=== PATIENT | male | born 1960 | race Caucasian/White ===

== ENCOUNTER 2016-12-23 08:17 | Inpatient (IN) | payer MEDICARE ==
--- NOTE | 2016-12-20 14:12 | HP ---
HISTORY AND PHYSICAL: DATE OF OFFICE VISIT: 12/20/16 DATE OF SURGERY: 12/23/16 SURGEON: Dr. Marissa Montague. (DICTATED BY JEYSON DOSS) PROCEDURE: Right total knee arthroplasty. CHIEF COMPLAINT: Right knee pain. HISTORY OF PRESENT ILLNESS: Mr. Fajardo is a 56-year-old with complaints of right knee pain secondary to advanced osteoarthritis. He has failed conservative management and has elected to proceed with a right total knee arthroplasty, which is scheduled for 12/23/16. PAST MEDICAL HISTORY: 1. Hypertension. 2. COPD. 3. History of an IN x2. 4. High cholesterol. 5. Sleep apnea. 6. Coronary artery disease. 7. Obesity. 8. Osteoarthritis. 9. History of DVT x3. 10. Diabetes. 11. History of kidney cancer. PAST SURGICAL HISTORY: 1. Bilateral knee arthroscopies. 2. Left partial nephrectomy. 3. Cholecystectomy. 4. T and A. 5. Bilateral trigger finger release. 6. Appendectomy. 7. Hysterectomy. 8. Chest reconstruction. 9. Left shoulder rotator cuff repair. 10. Lumbar laminectomy. CURRENT MEDICATIONS: 1. Bystolic. 2. Advair Diskus. 3. Testosterone. 4. Spiriva. 5. Buspirone. 6. Duloxetine. 7. Famotidine. 8. ProAir. 9. Vitamin D3. 10. Bumetanide. 11. Sertraline. 12. Tizanidine. 13. Topamax. 14. Oxycodone. 15. Atorvastatin. ALLERGIES: To ASPIRIN, CODEINE causing abdominal pain, AMOXICILLIN, ARTHROTEC, ZITHROMAX, TAPE ADHESIVE, LYRICA, GABAPENTIN, MYOVIEW, and CELEBREX. FAMILY HISTORY: Unknown, adopted. SOCIAL HISTORY: This is a 56-year-old transgender male who lives alone. He is a former smoker, quit 3 years ago. He denies the use of drugs or alcohol. REVIEW OF SYSTEMS: A complete 14-point review of systems was reviewed with the patient and was negative for a history of anesthesia problems, negative for hepatitis C, HIV, or MRSA, positive for diabetes, history of a DVT. PHYSICAL EXAMINATION GENERAL: He is a 56-year-old obese male in no acute distress. VITAL SIGNS: He stands 5 feet 3 inches tall, weighs 250 pounds, his blood pressure is 115/68, his heart rate is 78. HEENT: Normocephalic, atraumatic. NECK: Supple. No palpable lymph nodes. CARDIO: Regular rate and rhythm. Strong S1, S2. No murmurs, gallops or rubs. PULMONARY: Lungs are clear to auscultation bilaterally. No wheezes, rhonchi or rales. ABDOMEN: Soft, nontender, nondistended. MUSCULOSKELETAL: Right lower extremity, the skin is intact. There is a full range of motion of the right knee, tenderness over the medial and lateral joint line, patellofemoral crepitus, mild joint effusion, 2+ dorsalis pedis pulses. His lower extremity muscular strengths are intact at 5/5. NEUROLOGICAL: Alert and oriented x3. Cranial nerves II through XII are intact. ASSESSMENT AND PLAN: Mr. Fajardo is a 56-year-old gentleman with complaints of right knee pain secondary to advanced osteoarthritis. He has failed conservative management and has elected to proceed with a right total knee arthroplasty, which is scheduled for 12/23/[address] Montague discussed the risks and the benefits of the surgery and all of his questions were answered. Coumadin was sent to his pharmacy today for postoperative DVT prophylaxis. He currently has a prescription for oxycodone 2 mg and recently filled that prescription and no pain medication was sent today. He will continue to use the oxycodone 2 mg following the surgery. Prescription for Colace was sent for postoperative constipation. He will see Dr. Montague about 10 to 14 days after the surgery. JEYSON DOSS [id number]/[facility] #: [id number] MTDAnnmarie
[~2016-12-23 08:17] MED LIST: Buffered Lidocaine 1% SYR 3ML* 3 ML/SYR SYRINGE INTRADERM ONE
[2016-12-23] MEDS ORDERED: Clindamycin 900 MG IVPREMIX(* 900 MG/50 ML SDV IV ONE (08:35)
[2016-12-23] MEDS ORDERED: Midazolam* 1 MG/ML 5 ML VIAL (5 MG) ONE ×2 (10:22→11:31)
[2016-12-23] MEDS ORDERED: fentaNYL* 50 MCG/ML 2 ML VIAL (100 MCG VIAL) ONE ×2 (10:49→15:41)
[2016-12-23] MEDS ORDERED: HYDROmorphone* 1 MG/ML 1 ML SYR IV PRN (11:55)
[2016-12-23] MEDS ORDERED: fentaNYL* 50 MCG/ML 2 ML VIAL (100 MCG VIAL) IV PRN (11:55)
[2016-12-23] MEDS ORDERED: diPHENhydraMINE IV* 50 MG/ML 1 ml VIAL (BENADRYL) IV PRN ×2 (11:55→13:06)
[2016-12-23] MEDS ORDERED: Ondansetron INJ* 2 MG/ML VIAL IV PRN ×2 (11:55→11:57)
[2016-12-23] MEDS ORDERED: Naloxone* 0.4 MG/ML 1 ML VIAL IV PRN (11:57)
[2016-12-23] MEDS ORDERED: EPHEDrine (Pressors)* 50 MG/ML VIAL IV PUSH PRN (11:57)
[2016-12-23] MEDS ORDERED: DiMENhydriNATE IV* 50 MG/ML VIAL IV PUSH PRN (11:57)
[2016-12-23] MEDS ORDERED: Lactated Ringers 500 ml BAG* 500 ML IV PRN (11:57)
[2016-12-23] MEDS ORDERED: Ropivacaine 0.2% EPIDURAL* 200 MG/100 ML BAG EPIDURAL ONE (12:42)
[2016-12-23] MEDS ORDERED: Polyethylene Glycol 3350* 17 GM PACKET PO PRN (13:06)
[2016-12-23] MEDS ORDERED: Bisacodyl SUPP* 10 MG SUPP PR PRN (13:06)
[2016-12-23] MEDS ORDERED: Acetaminophen TAB* 325 MG PO PRN (13:06)
[2016-12-23] MEDS ORDERED: Nitroglycerin TAB 0.4 MG* 0.4 MG TAB SL PRN (13:14)
[2016-12-23] MEDS ORDERED: ALBUTEROL SULFATE INH PRN (13:14)
[2016-12-23] MEDS ORDERED: TESTOSTERONE CYPIONATE 200 MG IM SCH (13:15)
--- NOTE | 2016-12-23 14:26 | RAD ---
INDICATION: Status post total right knee replacement surgery. COMPARISON: Comparison is made with a prior x-ray study of the right knee from December 20, 2016. TECHNIQUE: 2 views of the right knee were obtained. FINDINGS: The patient is status post total right knee replacement surgery. The bones and prostheses are in normal alignment. There is a surgical drain present anterior to the distal femur. IMPRESSION: STATUS POST TOTAL RIGHT KNEE REPLACEMENT SURGERY.
[2016-12-23] MEDS: Ropivacaine 0.2% EPIDURAL* 200 MG/100 ML BAG EPIDURAL SCH ×2 (15:34→23:20)
[2016-12-23] MEDS ORDERED: oxyCODONE/Acetamin 5/325 MG* TAB ONE (15:41)
[2016-12-23] MEDS: oxyCODONE/Acetamin 5/325 MG* TAB PO PRN ×2 (15:42→20:03)
[2016-12-23] MEDS ORDERED: Spiriva Inhaler DEVICE* 1 EACH DEVICE INH ONE (17:00)
[2016-12-23] MEDS ORDERED: Warfarin TAB(*) 10 MG PO ONE (17:00)
[2016-12-23] MEDS ORDERED: Dextrose 50% Syringe 50 ML* 25 GM/50 ML SYRINGE IV PUSH PRN (17:01)
[2016-12-23] MEDS: Clindamycin 600 MG IVPREMIX(* 600 MG/50 ML SDV IV SCH (18:19)
--- NOTE | 2016-12-23 18:39 | CONS ---
MEDICAL CONSULTATION: DATE OF CONSULTATION: 12/23/16 PRIMARY CARE PROVIDER: Aaron William MD. PRIMARY SOCIAL MEDIA SPECIALIST: Jovanni Zavaleta MD. REFERRING PHYSICIAN: Marissa Montague MD. CONSULTING PROVIDER: JEYSON Melgar. SUPERVISING PHYSICIAN: Vidhi Michaud DO CHIEF COMPLAINT: Status post right total knee replacement. HISTORY OF PRESENT ILLNESS: This is a 56-year-old gentleman with a rather extensive medical history which includes obstructive sleep apnea for which he uses BiPAP, hypertension, morbid obesity, hyperlipidemia, coronary artery disease with an acute NM at less than 39 years old, 2 prior DVTs, COPD, diet- controlled diabetes, history of renal cancer, status post nephrectomy. This gentleman is a transgender individual who identifies as male, status post mastectomy and hysterectomy. The patient underwent right total knee replacement by Dr. Montague earlier today. Dr. Montague has requested medical consultation for comanagement of his multiple medical conditions during the postoperative period. Despite spinal anesthesia, the patient is still quite drowsy when evaluated in the PACU and is unable to provide a significant amount of history, but I was able to review preoperative evaluation from both his primary care provider, Dr. William, as well as Dr. Zavaleta. The patient last underwent a stress test less than a year ago, did have a small area of reversible ischemia appreciated at that time. No intervention. Baseline exercise tolerance is excellent. The patient is able to walk approximately a mile and a half without cardiac symptoms. Dr. Zavaleta recommended continuing his Bystolic through the perioperative period, but otherwise had no reservations regarding preoperative risk reduction. Notes from Dr. William suggested that his chronic medical conditions are stable. The patient has not had any recent COPD exacerbations or other recent illness. PAST MEDICAL HISTORY: 1. Obstructive sleep apnea, compliant with home BiPAP therapy. 2. Hypertension. 3. Morbid obesity with a BMI of 46. 4. Hyperlipidemia. 5. Coronary artery disease. History of acute NM in 1994. 6. DVT x2 in 1982 and 2008. The circumstances surrounding these events are unknown. 7. COPD. 8. Diet-controlled diabetes. 9. Transgender female transitioning to male. 10. Renal cell carcinoma, status post nephrectomy. PAST SURGICAL HISTORY: 1. Tonsillectomy. 2. Hysterectomy. 3. Chest reconstruction with double mastectomy. 4. Appendectomy. 5. Cholecystectomy. 6. Left rotator cuff repair. 7. Left knee arthroscopy. 8. Nephrectomy. HOME MEDICATIONS: 1. Sertraline 100 mg p.o. daily. 2. Albuterol 2 puffs inhaled q. 4 hours as needed for shortness of breath. 3. Bumex 1 mg p.o. daily. 4. Vitamin D3 2000 units p.o. twice daily. 5. Cymbalta 30 mg p.o. daily. 6. Pepcid 20 mg p.o. twice daily. 7. Advair 1 puff inhaled twice daily. 8. Multivitamin 1 capsule p.o. daily. 9. Bystolic 2.5 mg p.o. daily. 10. Nitroglycerin 0.4 mg sublingual q. 5 minutes as needed for chest pain. 11. Oxycodone 10 mg p.o. q. 6 hours as needed for pain. 12. Crestor 20 mg p.o. daily. 13. Testosterone intramuscularly every 14 days. 14. Spiriva 1 capsule inhaled daily. 15. Tizanidine 2 mg p.o. daily as needed. 16. Topiramate 25 mg p.o. at bedtime. 17. Trazodone 100 mg p.o. daily as needed for insomnia. 18. BuSpar 10 mg p.o. twice daily. SOCIAL HISTORY: The patient does have a smoking history, unsure of the number of pack years, but has quit greater than 2 years ago, and has no regular alcohol consumption. REVIEW OF SYSTEMS: Unable to obtain from the patient at this time. LABORATORY EVALUATION: Preoperative labs were not available for review. IMAGING: EKG shows a normal sinus rhythm, completed preoperatively. PHYSICAL EXAMINATION: Most recent vitals, temperature 97 degrees Fahrenheit, pulse 83 beats per minute, respiratory rate 18 per minute, oxygen saturation 93 % on 4 L with BiPAP mask in place, blood pressure 119/68 mmHg. General: This is a middle-aged gentleman that appears to be resting comfortably postoperatively. He is quite drowsy, he will respond to light touch and his name, but is unable to sustain a conversation and quickly falls back to sleep. HEENT: Head is normocephalic. There is a nasal mask in place. Mucous membranes are otherwise pink and moist. Cardiovascular: Heart has a regular rate and rhythm without murmurs, rubs, or gallops. Respiratory: Lungs are clear to auscultation without wheezes, crackles, or rhonchi. Abdomen: Abdomen is soft and nontender to palpation. Extremities: There is trace edema appreciated in both lower extremities. Surgical dressing in place over the right knee. Skin: Limited exam shows no concerning rashes or lesion. ASSESSMENT AND PLAN: This is a 56-year-old gentleman with a significant medical history including obstructive sleep apnea, hypertension, morbid obesity , hyperlipidemia, ischemic heart disease. status post NM in 1994, 2 prior DVTs, COPD, diet-controlled diabetes, renal cell carcinoma, status post nephrectomy, who underwent elective right total knee replacement with Dr. Montague earlier today. Hospitalist group has been asked to consult for medical comanagement. 1. Status post right total knee replacement - this is postop day 0, management per Ortho team including pain control, discharge planning and DVT prophylaxis. 2. Postoperative sedation - the patient received spinal anesthesia and per PACU nurse, has not required anything in the recovery period for pain, yet he remains quite sedated. He has multiple risk factors that would increase the likelihood of him having CO2 narcosis including obesity, COPD, and obstructive sleep apnea. His BiPAP is currently in place. I plan to check an ABG at this time to help to evaluate need for further management. Respiratory rate is within normal limits and the patient appears to be oxygenating well. 3. Obstructive sleep apnea, compliant with BiPAP - the patient has brought his own BiPAP with him and this will be ordered for use during his hospital stay. 4. Hypertension - it appears the patient uses Bumex and Bystolic. Bumex can likely be resumed tomorrow morning. Bystolic has been continued at this time. 5. Hyperlipidemia - continue statin. 6. History of coronary artery disease, status post NM in 1994 - per preoperative records, the patient has recently been asymptomatic and recommend continuing beta- ravindra perioperatively. 7. History of deep venous thrombosis x2 - per records, the patient experienced deep venous thrombosis in 1982 and 2008, unable to investigate what the circumstances were surrounding these. DVT prophylaxis will certainly be important in this patient. It appears that he has been ordered for Lovenox starting tomorrow afternoon, which will be 24 hours postoperatively as well as initiating Coumadin, with plan to bridge to full Coumadin therapy. 8. Chronic obstructive pulmonary disease without evidence of recent exacerbation - we will continue Advair, Spiriva and p.r.n. albuterol. 9. Diet-controlled diabetes - no preoperative labs are available for review. We will check fingersticks at meal time at least for the first 24 hours of his hospital stay. Check his hemoglobin A1c. 10. History of renal cell carcinoma, status post nephrectomy. 11. Transgender individual who identifies as male, with history of hysterectomy and mastectomy. 12. Code status. The patient is a full code. 13. Healthcare proxy is unknown. 14. DVT prophylaxis per Orthopedic Surgery, with Lovenox bridging to Coumadin currently ordered. 15. Disposition: Hospitalist group will continue to follow along with this patient. ABG is currently pending at this time. JEYSON MELGAR CC: Jovanni Zavaleta MD; Marissa Montague MD * [id number]/[facility] #: [id number] MTDD
[2016-12-23] MEDS: Famotidine TAB* 20 MG PO SCH (20:07)
[2016-12-23] MEDS: busPIRone TAB* 5 MG PO SCH (20:07)
[2016-12-23] MEDS: Docusate CAP* 100 MG PO SCH (20:07)
[2016-12-23] MEDS: Topiramate TAB(*) 25 MG PO SCH (20:07)
[2016-12-23] MEDS: Mometasone/Formoter 200/5 MDI INH SCH (20:48)
[2016-12-23] MEDS: Magnesium Hydroxide LIQ* 30 ML UDC PO SCH (21:20)
[2016-12-23] MEDS: Morphine INJ* 10 MG/ML 1 ML SYRINGE IV PRN (22:29)
[2016-12-23] MEDS: oxyCODONE TAB* 5 MG TAB PO PRN (23:48)
--- NOTE | 2016-12-24 00:39 | OP ---
DATE OF OPERATION: 12/23/16 - ROOM #349 DATE OF : 58 SURGEON: Marissa Montague MD TRAFFIC CONTROL OPERATOR: JEYSON Cowan. Manager [employer] was used throughout the procedure for preparation of the leg, retraction and manipulation of the leg, and wound closure. ANESTHESIOLOGIST: Dr. Tucker. ANESTHESIA: Spinal with adductor nerve block. PRE-OP DIAGNOSIS: Severe end-stage degenerative osteoarthritis of the right knee joint. POST-OP DIAGNOSIS: Severe end-stage degenerative osteoarthritis of the right knee joint. OPERATIVE PROCEDURE: Right total knee arthroplasty. TOURNIQUET TIME: 52 minutes. COMPLICATIONS: None. SPECIMEN: Bone and cartilage from the right knee joint sent to pathology. ESTIMATED BLOOD LOSS: 200 cc. HARDWARE USED: This is cemented [employer]am [employer] Nephew total knee hardware. For the cement, two packages of Simplex bone cement. For the femur, a size 5 right narrow posterior stabilized Legion Oxinium component. For the tibia, a size 3 right tibial base plate. For the insert, an 11 mm posterior stabilized articular insert a size 3-4, and for the patella, 32 mm 3-peg all-poly patella. BRIEF HISTORY/INDICATION: Mr. Fajardo is a 56-year-old gentleman with years of increasingly severe right knee pain. He failed conservative treatment with the anti-inflammatories, pain medication, physical therapy, arthroscopy, intra- articular injections and brace wear. Radiographs showed severe end-stage arthritis of the right knee joint with [id number] contacts in the medial compartment. He elected to undergo right total knee arthroplasty due to continued pain and decreased quality of life. Informed consent was obtained from the patient. He understood the risks of the procedure included, but were not limited to bleeding, infection, damage to nearby structures, continued pain , need for further surgery, intraoperative fracture, nerve palsy, hardware failure or loosening, knee stiffness, loss of motion, stroke, heart attack, blood clot, and . He wished to proceed. INTRAOPERATIVE FINDINGS: Intraoperatively, the patient was noted to have severe end-stage arthritis of the right knee joint. Complete loss of cartilage in the medial and patellofemoral compartments. DESCRIPTION OF PROCEDURE: Mr. Fajardo was identified in the preanesthesia unit. His right lower extremity was marked as the correct operative side. Informed consent was signed and placed in the chart. The patient was taken to the operating room. He was placed under spinal anesthesia with an adductor nerve block. Bryan catheter was placed. Thigh high tourniquet was placed on the right thigh. Right lower extremity was prepped and draped in the usual sterile fashion. Preop time-out was made to correctly identify the patient's side and site. Appropriate perioperative antibiotics were given within one hour of incision. A 14-cm midline incision was made with a 10 blade and carried down to the extensor mechanism. A new 10 blade was used to make a standard medial parapatellar arthrotomy. The patella was subluxed laterally. Electrocautery was used to subperiosteally elevate the soft tissue off the superomedial tibia. Rongeur was used to remove any medial tibial osteo-phytes. The knee was flexed up. Anterior horn of the lateral meniscus and ACL were sharply released. A drill was used to enter the distal femur. Intramedullary distal femoral cutting guide was then pinned into proper position. 9 mm of distal femur was carefully removed with an oscillating saw. Next, the external rotation guide was pinned on the distal femur. The distal femur was sized to a size 5. Size 5 multi-cutting jig was pinned on the distal femur. Oscillating saw was used to make the appropriate 4 chamfer cuts. All bony fragments were carefully removed. PCL was completely excised at this point. The tibia was subluxed anteriorly. Extramedullary tibial cutting guide was placed on the proximal tibia and pinned into position. Oscillating saw was used to make the appropriate proximal tibial cut perpendicular to the mechanical axis of the tibia. The bone was carefully removed. The knee was brought out into full extension. A spacer block had good fit. There was excellent medial and lateral ligamentous balancing. Good flexion and extension gap balancing. The knee was flexed up. Lamina nuclear design engineer was placed both medially and laterally. Any remaining meniscus was carefully removed with electrocautery. Any posterior osteophytes were removed using curved osteotome and curette. Tibial tray and drop tiburcio were placed once again ensure an appropriate proximal tibial cut. This was confirmed. A size 5 narrow right femoral component trial was then impacted onto the distal femur. This had excellent fit. The box for the posterior stabilized implant was prepared using a reamer and box cut osteotome. Trial size 3 tibial tray with an 11-mm insert trial was placed. The knee was taken through a range of motion and had full extension to 120 degrees of flexion. Body habitus limited flexion. There was satisfactory patellofemoral tracking. The patella was everted. 9 mm of patellar bone and cartilage was carefully removed using an oscillating saw. The patella was sized to a size 32. The 3 peg holes were drilled through the size 32 guide. A size 32 trial patella was placed and the knee was taken through a range of motion. There was satisfactory patellofemoral tracking. All trials were carefully removed. The tibia was subluxed anteriorly and sized to a size 3. Proximal tibia was prepared using a size 3 keel punch. All bony cut surfaces were copiously irrigated with sterile saline and dried. Final implants were cemented into place, starting with the tibia, followed by the femur, and last the patella. An 11 mm insert trial was chosen and placed while the knee was brought out into full extension. Tourniquet was turned down at 52 minutes. The knee was copiously irrigated with sterile saline. Once the cement had fully cured, the insert trial was removed. Any excess cement was carefully removed from around the implants and joint capsule. Electrocautery was used to obtain meticulous hemostasis. Final insert chosen was an 11 mm posterior stabilized articular insert. This was locked into position on the tibial tray. Stability of the insert was checked and rechecked and noted to be stable. The knee was once again copiously irrigated with sterile saline. The extensor mechanism was closed using interrupted #1 Vicryl's over a medium Hemovac drain. The rest of the incision was closed in a layered fashion using 0 and 2-0 Vicryl's. Skin was closed using running 3-0 nylon suture. Sterile Xeroform, 4x4's, and Webril were used to cover the incision. José Miguel wrap and cold pack were placed over this. The patient's anesthesia was reversed without difficulty. He was taken to the PACU in stable condition. Intended weightbearing will be weightbearing as tolerated. Intended DVT prophylaxis will be Coumadin with a Lovenox bridge. [id number]/[facility] #: [id number] [place]
[2016-12-24] MEDS: Morphine INJ* 10 MG/ML 1 ML SYRINGE IV PRN ×5 (02:13→18:50)
[2016-12-24] MEDS: Clindamycin 600 MG IVPREMIX(* 600 MG/50 ML SDV IV SCH ×2 (03:10→10:43)
[2016-12-24] MEDS: oxyCODONE TAB* 5 MG TAB PO PRN ×2 (05:19→09:39)
[2016-12-24 05:48] LABS: Hematocrit 42 % (42-52); Hemoglobin 13.8 g/dl (14.0-18.0)
[2016-12-24] MEDS: CMC:Nebivolol TAB (NF) 2.5 MG TAB PO SCH ×2 (05:53→07:38)
[2016-12-24] MEDS ORDERED: oxyCODONE/Acetamin 5/325 MG* TAB PO PRN (06:00)
[2016-12-24] MEDS ORDERED: Ondansetron TAB* 4 MG PO PRN (06:00)
[2016-12-24] MEDS ORDERED: Ondansetron INJ* 2 MG/ML VIAL IV PRN (06:00)
[2016-12-24] MEDS ORDERED: oxyCODONE TAB* 5 MG TAB PO PRN (06:00)
[2016-12-24 06:02] LABS: BUN/Creatinine Ratio 13.6 (8-20); Calcium 8.7 mg/dL (8.6-10.3); EGFR African American 126.3 (>60); EGFR Non-African American 98.2 (>60); Potassium 3.7 mmol/L (3.5-5.0)
[2016-12-24] MEDS: Bumetanide TAB* 1 MG PO SCH ×2 (06:03→07:37)
[2016-12-24] MEDS ORDERED: FLUoxetine CAP* 20 MG PO SCH (09:00)
[2016-12-24] MEDS: Insulin LISPRO* 1 UNITS UNIT SUBCUT SCH ×3 (09:41→18:35)
[2016-12-24] MEDS: busPIRone TAB* 5 MG PO SCH ×2 (09:44→20:08)
[2016-12-24] MEDS: DULoxetine DR CAP* 30 MG CAP.DR PO SCH (09:44)
[2016-12-24] MEDS: Docusate CAP* 100 MG PO SCH ×2 (09:45→20:08)
[2016-12-24] MEDS: Famotidine TAB* 20 MG PO SCH ×2 (09:45→20:08)
[2016-12-24] MEDS: Atorvastatin* 40 MG TAB PO SCH (09:45)
[2016-12-24] MEDS: oxyCODONE SR TAB(*) 20 MG TAB.SR PO SCH ×2 (09:46→20:08)
[2016-12-24] MEDS: Mometasone/Formoter 200/5 MDI INH SCH ×2 (09:48→20:19)
[2016-12-24] MEDS: Magnesium Hydroxide LIQ* 30 ML UDC PO SCH ×2 (09:49→20:07)
[2016-12-24] MEDS: Sertraline* 100 MG TAB PO SCH (09:49)
--- NOTE | 2016-12-24 09:51 | PN ---
Progress Note - Progress Note SOAP: Subjective: 56 y/o male s/p R TKA 5/[address] Montague. Patient reports increased pain, no sleeping overnight. VSS, afebrile. Objective: General- Sitting in chair, eating breakfast, AO MSK- surgical dressing intact, no drainage, hemovac removed by Dr Montague in AM, PT 2+ RLE. moderate edema b/l LE's. + DF/ PF b/l. sensation to light touch grossly intact. Laboratory Results - last 24 hr 12/23/16 12/23/16 12/23/16 14:54 18:16 22:41 Hgb Hct INR (Anticoag Therapy) Sodium Potassium Chloride Carbon Dioxide Anion Gap BUN Creatinine Est GFR ( Amer) Est GFR (Non-Af Amer) BUN/Creatinine Ratio Glucose POC Glucose (mg/dL) 149 H 145 H 192 H Calcium 12/24/16 12/24/16 12/24/16 05:30 05:30 05:30 Hgb 13.8 L Hct 42 INR (Anticoag Therapy) 1.25 H Sodium 131 L Potassium 3.7 Chloride 104 Carbon Dioxide 19 L Anion Gap 8 BUN 11 Creatinine 0.81 Est GFR ( Amer) 126.3 Est GFR (Non-Af Amer) 98.2 BUN/Creatinine Ratio 13.6 Glucose 191 H POC Glucose (mg/dL) Calcium 8.7 12/24/16 07:46 Hgb Hct INR (Anticoag Therapy) Sodium Potassium Chloride Carbon Dioxide Anion Gap BUN Creatinine Est GFR ( Amer) Est GFR (Non-Af Amer) BUN/Creatinine Ratio Glucose POC Glucose (mg/dL) 204 H Calcium Vital Signs Temp 98.4 F 12/24/16 08:15 Pulse 101 12/24/16 08:15 Resp 22 12/24/16 09:46 BP 180/81 12/24/16 08:15 Pulse Ox 94 12/24/16 08:15 Intake & Output 12/23/16 12/24/16 12/24/16 18:59 06:59 18:59 Intake Total 2120 3156 Output Total 1200 1850 Balance 920 1306 Weight 259 lb Intake: IV Fluids 2000 1516 LR 2000 1516 IVPB 100 clindamycin 100 Oral 120 1540 Output: Bryan 950 1850 Estimated Blood Loss 250 Other: # Bowel Movements 0 Assessment: 56 y/o male s/p R TKA 12/[address] Montague. Plan: - DVT prophylaxis- coumadin, lovenox. 6mg coumadin tonight - tachycardia- likely pain related, pain medication increased to oxycontin 10mg w short acting, continue to monitor - H&H stable - Continue to monitor BS- hospitalist following - Possible D/C Tuesday Active Medications Generic Name Dose Route Start Last Admin Trade Name Freq PRN Reason Stop Dose Admin Acetaminophen 650 mg 12/23/16 13:06 Tylenol Tab* PO Q4H PRN pain, fever Atorvastatin Calcium 40 mg 12/24/16 09:00 12/24/16 09:45 Lipitor* PO 40 mg DAILY RAMIREZ Administration Bisacodyl 10 mg 12/23/16 13:06 Dulcolax Supp* [place] DAILY PRN constipation Bumetanide 1 mg 12/24/16 09:00 12/24/16 07:37 Bumex Tab* PO Not Given QAM RAMIREZ Buspirone HCl 10 mg 12/23/16 21:00 12/24/16 09:44 Buspar Tab* PO 10 mg BID RAMIREZ Administration Dextrose 12.5 gm 12/23/16 17:01 D50w Syringe 50 Ml* IV PUSH .FOR FS < 60 - SS PRN FS < 60 Dimenhydrinate 12.5 mg 12/23/16 11:57 Dramamine Iv* IV PUSH ONCE PRN NAUSEA/VOMITING Diphenhydramine HCl 12.5 mg 12/23/16 13:06 Benadryl Iv* IV Q6H PRN PRURITIS Docusate Sodium 100 mg 12/23/16 21:00 12/24/16 09:45 Colace Cap* PO 100 mg BID RAMIREZ Administration Duloxetine HCl 30 mg 12/24/16 09:00 12/24/16 09:44 Cymbalta Cap* PO 30 mg DAILY RAMIREZ Administration Enoxaparin Sodium 40 mg 12/24/16 13:00 Lovenox(*) SUBCUT Q24H RAMIREZ Ephedrine Sulfate 5 mg 12/23/16 11:57 Ephedrine Sulfate (Pressors)* IV PUSH Q5M PRN HYPOTENSION Famotidine 20 mg 12/23/16 21:00 12/24/16 09:45 Pepcid Tab* PO 20 mg BID RAMIREZ Administration Ropivacaine 200 mg in 100 mls @ 0 mls/hr 12/23/16 12:00 12/23/16 23:20 Ropivacaine 0.2% Epidural* EPIDURAL 12 mls/hr .PER RATE RAMIREZ Administration Protocol Per Protocol Clindamycin HCl/Dextrose 600 mg in 50 mls @ 100 mls/hr 12/23/16 18:30 03:10 Cleocin 600 Mg Ivpremix(*) Sdv IV 12/24/16 10:59 100 mls/hr Q8H RAMIREZ Administration Insulin Human Lispro 0 units 12/24/16 07:30 12/24/16 09:41 Humalog* SUBCUT 2 units AC RAMIREZ Administration Protocol Lactulose 30 ml 12/23/16 13:06 Lactulose* PO Q6H PRN constipation Magnesium Hydroxide 30 ml 12/23/16 21:00 12/24/16 09:49 Milk Of Magnesia Liq* PO 30 ml BID RAMIREZ Administration Mometasone Furoate/Formoterol Fumar 2 puff 12/23/16 21:00 12/24/16 09:48 Dulera 200/5 Mdi* INH 2 puff BID RAMIREZ Administration Morphine Sulfate 5 mg 12/23/16 13:06 12/24/16 06:03 Morphine Inj (Syringe)* IV 5 mg Q2H PRN Administration PAIN - BREAKTHROUGH Multivitamins 1 tab 12/24/16 09:00 Theragran Tab* PO DAILY [facility] Naloxone HCl 0.08 mg 12/23/16 11:57 Narcan* IV Q2M PRN Respiratory rate < 10 Nebivolol 2.5 mg 12/24/16 09:00 12/24/16 07:38 Bystolic Tab (Nf) PO Not Given DAILY [facility] Nitroglycerin 0.4 mg 12/23/16 13:14 Nitroglycerin Tab 0.4 Mg* SL Q5M PRN chest pain Non-Formulary Medication 2 puff 12/23/16 13:14 Albuterol Sulfate [Proair Respiclick] INH Q4H PRN SOB/WHEEZING Non-Formulary Medication 200 mg 12/23/16 13:15 Testosterone Cypionate [Testosterone Cypionate] IM .SEE INSTRUCTIONS RAMIREZ Ondansetron HCl 4 mg 12/24/16 06:00 Zofran Inj* IV Q6H PRN nausea Ondansetron HCl 4 mg 12/24/16 06:00 Zofran Tab* PO Q6H PRN NAUSEA Oxycodone HCl 10 mg 12/24/16 06:00 12/24/16 09:43 Roxycodone Tab* PO 10 mg Q4H PRN Administration PAIN - SEVERE Oxycodone HCl 20 mg 12/24/16 09:00 12/24/16 09:46 Oxycontin(*) PO 20 mg BID RAMIREZ Administration Oxycodone/Acetaminophen 1 tab 12/23/16 11:57 12/23/16 20:03 Percocet 5/325 Tab* PO 1 tab Q3H PRN Administration moderate pain Oxycodone/Acetaminophen 1 tab 12/24/16 06:00 Percocet 5/325 Tab* PO Q3H PRN PAIN - MILD TO MODERATE Oxycodone/Acetaminophen 2 tab 12/24/16 06:00 Percocet 5/325 Tab* PO Q3H PRN PAIN - MODERATE Polyethylene Glycol/Electrolytes 17 gm 12/23/16 13:06 Miralax* PO DAILY PRN Constipation Sertraline HCl 100 mg 12/24/16 09:00 12/24/16 09:49 Zoloft* PO 100 mg DAILY RAMIREZ Administration Tiotropium Sherrill 1 cap 12/24/16 09:00 Spiriva Cap.Inh* INH DAILY RAMIREZ Topiramate 25 mg 12/23/16 21:00 12/23/16 20:07 Topamax(*) PO 25 mg BEDTIME RAMIREZ Administration Warfarin Sodium 6 mg 12/24/16 17:00 Coumadin Tab(*) PO 12/24/16 17:01 ONCE@1700 ONE Protocol
[2016-12-24] MEDS: Vitamin THERAPEUTIC TAB PO SCH (09:54)
[2016-12-24] MEDS: Tiotropium CAP.INH* CAP.INH/18 MCG INH SCH (09:54)
--- NOTE | 2016-12-24 11:15 | PN ---
Subjective Date of Service: 12/24/16 Interval History: This is a 56 yo gentleman with multiple medical problems who is POD #1 s/p RTKA. He is having a lot of trouble with pain overnight and today. Denies CP, SOB, abd pain, n/v. Objective Active Medications: Acetaminophen (Tylenol Tab*) 650 mg PO Q4H PRN PRN Reason: pain, fever Atorvastatin Calcium (Lipitor*) 40 mg PO DAILY [facility] Last Admin: 12/24/16 09:45 Dose: 40 mg Bisacodyl (Dulcolax Supp*) 10 mg [place] DAILY PRN PRN Reason: constipation Bumetanide (Bumex Tab*) 1 mg PO QAM [facility] Last Admin: 12/24/16 07:37 Dose: Not Given Buspirone HCl (Buspar Tab*) 10 mg PO BID [facility] Last Admin: 12/24/16 09:44 Dose: 10 mg Dextrose (D50w Syringe 50 Ml*) 12.5 gm IV PUSH .FOR FS < 60 - SS PRN PRN Reason: FS < 60 Dimenhydrinate (Dramamine Iv*) 12.5 mg IV PUSH ONCE PRN PRN Reason: NAUSEA/VOMITING Diphenhydramine HCl (Benadryl Iv*) 12.5 mg IV Q6H PRN PRN Reason: PRURITIS Docusate Sodium (Colace Cap*) 100 mg PO BID [facility] Last Admin: 12/24/16 09:45 Dose: 100 mg Duloxetine HCl (Cymbalta Cap*) 30 mg PO DAILY [facility] Last Admin: 12/24/16 09:44 Dose: 30 mg Enoxaparin Sodium (Lovenox(*)) 40 mg SUBCUT Q24H [facility] Ephedrine Sulfate (Ephedrine Sulfate (Pressors)*) 5 mg IV PUSH Q5M PRN PRN Reason: HYPOTENSION Famotidine (Pepcid Tab*) 20 mg PO BID [facility] Last Admin: 12/24/16 09:45 Dose: 20 mg Ropivacaine (Ropivacaine 0.2% Epidural*) 200 mg in 100 mls @ 0 mls/hr EPIDURAL .PER RATE RAMIREZ; Per Protocol PRN Reason: Protocol Last Admin: 12/23/16 23:20 Dose: 12 mls/hr Insulin Human Lispro (Humalog*) 0 units SUBCUT AC [facility] PRN Reason: Protocol Last Admin: 12/24/16 09:41 Dose: 2 units Lactulose (Lactulose*) 30 ml PO Q6H PRN PRN Reason: constipation Magnesium Hydroxide (Milk Of Magnlivier Liq*) 30 ml PO BID [facility] Last Admin: 12/24/16 09:49 Dose: 30 ml Mometasone Furoate/Formoterol Fumar (Dulera 200/5 Mdi*) 2 puff INH BID [facility] Last Admin: 12/24/16 09:48 Dose: 2 puff Morphine Sulfate (Morphine Inj (Syringe)*) 5 mg IV Q2H PRN PRN Reason: PAIN - BREAKTHROUGH Last Admin: 12/24/16 10:37 Dose: 5 mg Multivitamins (Theragran Tab*) 1 tab PO DAILY [facility] Last Admin: 12/24/16 09:54 Dose: 1 tab Naloxone HCl (Narcan*) 0.08 mg IV Q2M PRN PRN Reason: Respiratory rate < 10 Nebivolol (Bystolic Tab (Nf)) 2.5 mg PO DAILY [facility] Last Admin: 12/24/16 07:38 Dose: Not Given Nitroglycerin (Nitroglycerin Tab 0.4 Mg*) 0.4 mg SL Q5M PRN PRN Reason: chest pain Non-Formulary Medication (Albuterol Sulfate [Proair Respiclick]) 2 puff INH Q4H PRN PRN Reason: SOB/WHEEZING Non-Formulary Medication (Testosterone Cypionate [Testosterone Cypionate]) 200 mg IM .SEE INSTRUCTIONS [facility] Ondansetron HCl (Zofran Inj*) 4 mg IV Q6H PRN PRN Reason: nausea Ondansetron HCl (Zofran Tab*) 4 mg PO Q6H PRN PRN Reason: NAUSEA Oxycodone HCl (Roxycodone Tab*) 10 mg PO Q4H PRN PRN Reason: PAIN - SEVERE Last Admin: 12/24/16 09:43 Dose: 10 mg Oxycodone HCl (Oxycontin(*)) 20 mg PO BID [facility] Last Admin: 12/24/16 09:46 Dose: 20 mg Oxycodone/Acetaminophen (Percocet 5/325 Tab*) 1 tab PO Q3H PRN PRN Reason: moderate pain Last Admin: 12/23/16 20:03 Dose: 1 tab Oxycodone/Acetaminophen (Percocet 5/325 Tab*) 1 tab PO Q3H PRN PRN Reason: PAIN - MILD TO MODERATE Oxycodone/Acetaminophen (Percocet 5/325 Tab*) 2 tab PO Q3H PRN PRN Reason: PAIN - MODERATE Polyethylene Glycol/Electrolytes (Miralax*) 17 gm PO DAILY PRN PRN Reason: Constipation Sertraline HCl (Zoloft*) 100 mg PO DAILY [facility] Last Admin: 12/24/16 09:49 Dose: 100 mg Tiotropium [place] (Spiriva Cap.Inh*) 1 cap INH DAILY [facility] Last Admin: 12/24/16 09:54 Dose: 1 puff Topiramate (Topamax(*)) 25 mg PO BEDTIME [facility] Last Admin: 12/23/16 20:07 Dose: 25 mg Warfarin Sodium (Coumadin Tab(*)) 6 mg PO ONCE@1700 ONE PRN Reason: Protocol Stop: 12/24/16 17:01 Vital Signs: Temp Pulse Resp BP Pulse Ox 98.4 F 101 22 180/81 94 12/24/16 08:15 12/24/16 08:15 12/24/16 10:37 12/24/16 08:15 12/24/16 08:15 Oxygen Devices in Use Now: CPAP/BiPAP Appearance: Uncomfortable appearing gentleman lying in bed, BiPAP in place Neck: NL Appearance and Movements; NL JVP Respiratory: Symmetrical Chest Expansion and Respiratory Effort, Clear to Auscultation Cardiovascular: NL Sounds; No Murmurs; No JVD, RRR Abdominal: NL Sounds; No Tenderness; No Distention Extremities: - - R dressing in place over R knee, some saturation through lateral portion, edema noted bilaterally Skin: No Rash or Ulcers Neurological: Alert and Oriented x 3 Result Diagrams: 12/24/16 05:30 12/24/16 05:30 Assess/Plan/Problems-Billing Assessment: This is a 56 yo gentleman with morbid obesity, GUANACO, HTN, CAD s/p AMI 95, DVT x 2 , COPD, diet controlled DM, renal CA s/p nephrectomy. He is transgender individual who identifies as male, maintained on testosterone therapy s/p mastectomy and hysterectomy who is s/p R TKA by Dr Montague. Hospitalist group is co-managing - Patient Problems (1) Status post right knee replacement Comment: POD #1 Management per ortho Struggling with pain management (2) GUANACO (obstructive sleep apnea) Comment: Compliant with BiPAP (3) HTN (hypertension) Comment: Noted HTN overnight and this am with mild tachycardia Likely pain mediated Cont home Bumex (4) Obesity Comment: BMI 46 (5) HLD (hyperlipidemia) (6) H/O deep venous thrombosis Comment: 2 prior spontaneous DVTs No residential anticoagulation Recommend agressive prophylaxis measures (7) COPD (chronic obstructive pulmonary disease) Comment: No acute exacerbation (8) Diabetes Comment: Reportedly diet controlled Added HgbA1c FBG >200 mg/dl this am Cont SS Humalog coverage (9) H/O renal cell cancer (10) Full code status (11) DVT prophylaxis Comment: Lovenox bridge to coumadin per ortho Status and Disposition: Inpatient. Dispo per ortho. No acute medical concerns
[2016-12-24] MEDS ORDERED: Bumetanide TAB* 2 MG PO SCH (11:30)
[2016-12-24] MEDS ORDERED: Enoxaparin(*) 40 MG/0.4 ML SYR SUBCUT SCH (13:00)
[2016-12-24] MEDS: oxyCODONE/Acetamin 5/325 MG* TAB PO PRN ×3 (13:25→22:36)
[2016-12-24] MEDS ORDERED: Warfarin TAB(*) 6 MG PO ONE (17:00)
[2016-12-24] MEDS: Topiramate TAB(*) 25 MG PO SCH (20:08)
[2016-12-25] MEDS: oxyCODONE/Acetamin 5/325 MG* TAB PO PRN ×5 (01:59→16:57)
[2016-12-25 05:56] LABS: Hematocrit 41 % (42-52); Hemoglobin 13.6 g/dl (14.0-18.0); Mean Platelet Volume 8 um3 (7.4-10.4)
[2016-12-25] MEDS: Tiotropium CAP.INH* CAP.INH/18 MCG INH SCH (07:35)
[2016-12-25] MEDS: Mometasone/Formoter 200/5 MDI INH SCH (07:35)
--- NOTE | 2016-12-25 09:06 | PN ---
Progress Note - Progress Note SOAP: Subjective: Pt. is alert, reports ice machine causes more pain. Objective: RLE - dressing change, inc c/d/i. mod swelling. distally nvi. Vital Signs: Temp Pulse Resp BP Pulse Ox 98.3 F 96 20 157/73 93 12/25/16 04:02 12/25/16 04:02 12/25/16 08:00 12/25/16 04:02 12/25/16 08:00 Laboratory Results - last 24 hr 12/24/16 12/24/16 12/24/16 05:30 12:30 16:46 Hgb Hct Plt Count MPV INR (Anticoag Therapy) POC Glucose (mg/dL) 245 H 201 H Hemoglobin A1c 8.1 H 12/24/16 12/25/16 12/25/16 20:50 05:18 05:18 Hgb 13.6 L Hct 41 L Plt Count 217 MPV 8 INR (Anticoag Therapy) 2.89 H POC Glucose (mg/dL) 224 H Hemoglobin A1c 12/25/16 07:45 Hgb Hct Plt Count MPV INR (Anticoag Therapy) POC Glucose (mg/dL) 183 H Hemoglobin A1c Assessment: 56 yo M pod 2 s/p RTKA Plan: wbat pt/ot d/c lovenox, hold coumadin plan d/c to home today with vns
[2016-12-25] MEDS: CMC:Nebivolol TAB (NF) 2.5 MG TAB PO SCH (09:29)
[2016-12-25] MEDS: Famotidine TAB* 20 MG PO SCH (09:30)
[2016-12-25] MEDS: Sertraline* 100 MG TAB PO SCH (09:30)
[2016-12-25] MEDS: Vitamin THERAPEUTIC TAB PO SCH (09:30)
[2016-12-25] MEDS: Atorvastatin* 40 MG TAB PO SCH (09:30)
[2016-12-25] MEDS: Bumetanide TAB* 1 MG PO SCH (09:31)
[2016-12-25] MEDS: oxyCODONE SR TAB(*) 20 MG TAB.SR PO SCH (09:31)
[2016-12-25] MEDS: Docusate CAP* 100 MG PO SCH (09:32)
[2016-12-25] MEDS: busPIRone TAB* 5 MG PO SCH (09:32)
[2016-12-25] MEDS: DULoxetine DR CAP* 30 MG CAP.DR PO SCH (09:32)
[2016-12-25] MEDS: Magnesium Hydroxide LIQ* 30 ML UDC PO SCH (09:32)
[2016-12-25] MEDS: Insulin LISPRO* 1 UNITS UNIT SUBCUT SCH ×2 (09:34→14:07)
--- NOTE | 2016-12-25 12:25 | PN ---
Subjective Date of Service: 12/25/16 Interval History: Reportedly improved pain control with plan for dc tomorrow today. Patient was not available for interview or exam at this time. Objective Active Medications: Acetaminophen (Tylenol Tab*) 650 mg PO Q4H PRN PRN Reason: pain, fever Atorvastatin Calcium (Lipitor*) 40 mg PO DAILY [facility] Last Admin: 12/25/16 09:30 Dose: 40 mg Bisacodyl (Dulcolax Supp*) 10 mg [place] DAILY PRN PRN Reason: constipation Bumetanide (Bumex Tab*) 1 mg PO QAM [facility] Last Admin: 12/25/16 09:31 Dose: 1 mg Buspirone HCl (Buspar Tab*) 10 mg PO BID [facility] Last Admin: 12/25/16 09:32 Dose: 10 mg Dextrose (D50w Syringe 50 Ml*) 12.5 gm IV PUSH .FOR FS < 60 - SS PRN PRN Reason: FS < 60 Dimenhydrinate (Dramamine Iv*) 12.5 mg IV PUSH ONCE PRN PRN Reason: NAUSEA/VOMITING Diphenhydramine HCl (Benadryl Iv*) 12.5 mg IV Q6H PRN PRN Reason: PRURITIS Docusate Sodium (Colace Cap*) 100 mg PO BID [facility] Last Admin: 12/25/16 09:32 Dose: Not Given Duloxetine HCl (Cymbalta Cap*) 30 mg PO DAILY [facility] Last Admin: 12/25/16 09:32 Dose: 30 mg Ephedrine Sulfate (Ephedrine Sulfate (Pressors)*) 5 mg IV PUSH Q5M PRN PRN Reason: HYPOTENSION Famotidine (Pepcid Tab*) 20 mg PO BID [facility] Last Admin: 12/25/16 09:30 Dose: 20 mg Ropivacaine (Ropivacaine 0.2% Epidural*) 200 mg in 100 mls @ 0 mls/hr EPIDURAL .PER RATE [facility]; Per Protocol PRN Reason: Protocol Last Admin: 12/23/16 23:20 Dose: 12 mls/hr Insulin Human Lispro (Humalog*) 0 units SUBCUT AC [facility] PRN Reason: Protocol Last Admin: 12/25/16 09:34 Dose: 1 units Lactulose (Lactulose*) 30 ml PO Q6H PRN PRN Reason: constipation Magnesium Hydroxide (Milk Of Magnesia Liq*) 30 ml PO BID [facility] Last Admin: 12/25/16 09:32 Dose: Not Given Mometasone Furoate/Formoterol Fumar (Dulera 200/5 Mdi*) 2 puff INH BID [facility] Last Admin: 12/25/16 07:35 Dose: 2 puff Morphine Sulfate (Morphine Inj (Syringe)*) 5 mg IV Q2H PRN PRN Reason: PAIN - BREAKTHROUGH Last Admin: 12/24/16 18:50 Dose: 5 mg Multivitamins (Theragran Tab*) 1 tab PO DAILY [facility] Last Admin: 12/25/16 09:30 Dose: 1 tab Naloxone HCl (Narcan*) 0.08 mg IV Q2M PRN PRN Reason: Respiratory rate < 10 Nebivolol (Bystolic Tab (Nf)) 2.5 mg PO DAILY [facility] Last Admin: 12/25/16 09:29 Dose: 2.5 mg Nitroglycerin (Nitroglycerin Tab 0.4 Mg*) 0.4 mg SL Q5M PRN PRN Reason: chest pain Non-Formulary Medication (Albuterol Sulfate [Proair Respiclick]) 2 puff INH Q4H PRN PRN Reason: SOB/WHEEZING Non-Formulary Medication (Testosterone Cypionate [Testosterone Cypionate]) 200 mg IM .SEE INSTRUCTIONS [facility] Ondansetron HCl (Zofran Inj*) 4 mg IV Q6H PRN PRN Reason: nausea Ondansetron HCl (Zofran Tab*) 4 mg PO Q6H PRN PRN Reason: NAUSEA Oxycodone HCl (Roxycodone Tab*) 10 mg PO Q4H PRN PRN Reason: PAIN - SEVERE Last Admin: 12/24/16 09:43 Dose: 10 mg Oxycodone HCl (Oxycontin(*)) 20 mg PO BID [facility] Last Admin: 12/25/16 09:31 Dose: 20 mg Oxycodone/Acetaminophen (Percocet 5/325 Tab*) 1 tab PO Q3H PRN PRN Reason: moderate pain Last Admin: 12/24/16 13:25 Dose: 1 tab Oxycodone/Acetaminophen (Percocet 5/325 Tab*) 1 tab PO Q3H PRN PRN Reason: PAIN - MILD TO MODERATE Oxycodone/Acetaminophen (Percocet 5/325 Tab*) 2 tab PO Q3H PRN PRN Reason: PAIN - MODERATE Last Admin: 12/25/16 10:30 Dose: 2 tab Polyethylene Glycol/Electrolytes (Miralax*) 17 gm PO DAILY PRN PRN Reason: Constipation Sertraline HCl (Zoloft*) 100 mg PO DAILY [facility] Last Admin: 12/25/16 09:30 Dose: 100 mg Tiotropium Ashley (Spiriva Cap.Inh*) 1 cap INH DAILY [facility] Last Admin: 12/25/16 07:35 Dose: 1 puff Topiramate (Topamax(*)) 25 mg PO BEDTIME [facility] Last Admin: 12/24/16 20:08 Dose: 25 mg Vital Signs: Temp Pulse Resp BP Pulse Ox 98.3 F 96 20 157/73 93 12/25/16 04:02 12/25/16 04:02 12/25/16 11:31 12/25/16 04:02 12/25/16 08:00 Appearance: Exam not completed, participating with PT Result Diagrams: 12/25/16 05:18 12/24/16 05:30 Assess/Plan/Problems-Billing Assessment: This is a 56 yo gentleman with morbid obesity, GUANACO, HTN, CAD s/p AMI 95, DVT x 2 , COPD, diet controlled DM, renal CA s/p nephrectomy. He is transgender individual who identifies as male, maintained on testosterone therapy s/p mastectomy and hysterectomy who is s/p R TKA by Dr Montague. Hospitalist group is co-managing - Patient Problems (1) Status post right knee replacement Comment: POD #2 Management per ortho (2) Diabetes Comment: Reportedly diet controlled, but HgbA1c 8.1% Recommend adding Metformin at discharge with close follow up with PCP (3) GUANACO (obstructive sleep apnea) Comment: Compliant with BiPAP (4) HTN (hypertension) Comment: Remains slightly hypertensive, ?pain related Cont home Bumex (5) Obesity Comment: BMI 46 (6) HLD (hyperlipidemia) (7) H/O deep venous thrombosis Comment: 2 prior spontaneous DVTs No intermission coordinator anticoagulation Recommend agressive prophylaxis measures (8) COPD (chronic obstructive pulmonary disease) Comment: No acute exacerbation (9) H/O renal cell cancer (10) Full code status (11) DVT prophylaxis Comment: Coumadin, INR therapeutic Status and Disposition: Plan for dc by ortho today. Recommend starting metformin, Rx sent to pt pharm and close f/u with PCP regarding diabetes control and BP management
[2016-12-25 16:26] VITALS: BP 113/53
--- NOTE | 2016-12-26 22:01 | DS ---
DISCHARGE SUMMARY: DATE OF ADMISSION: 12/23/16 DATE OF DISCHARGE: 12/25/16 PROVIDER: Dr. Marissa Montague. (DICTATED BY JEYSON HINDS) ADMITTING DIAGNOSIS: Status post right total knee arthroplasty for severe right knee osteoarthritis. SECONDARY DIAGNOSES: 1. Hypertension. 2. Chronic obstructive pulmonary disease. 3. History of myocardial infarction x2. 4. High cholesterol. 5. Sleep apnea. 6. Coronary artery disease. 7. Obesity. 8. Osteoarthritis. 9. History of deep venous thrombosis x3. 10. Diabetes. 11. History of kidney cancer. CONSULTATIONS: 1. Medicine. 2. Occupational Therapy. 3. Physical Therapy. HISTORY OF PRESENT ILLNESS: Mr. Fajardo is a 56-year-old with complaints of right knee pain due to severe osteo-arthritis. He failed conservative measures, and therefore, elected to undergo a right total knee arthroplasty with Dr. Montague on 12/23/16. HOSPITAL COURSE: The patient was admitted to [facility] on . He underwent a right total knee arthroplasty. Postoperatively, he recovered on the short-stay surgical unit. Postop day 1, the Bryan was removed and he was able to urinate on his own. His diet was advanced to a regular diet without difficulty and his pain was controlled with oral Percocet and he is restarted on home medications. Labs and vitals remained stable. He is able to weight bear as tolerated on the right lower extremity. He advanced appropriately with physical therapy and occupational therapy. His DVT prophylaxis was managed with Lovenox and Coumadin until he reached a therapeutic INR. His INR on 12/24/16 was 1.25 and INR on 12/25/16 was 2.89. He was given 10 mg on 12/23/16 of warfarin and 6 mg on 12/24/16. By postop day 2, he was orthopedically and medically stable for discharge to home with VNS services. PHYSICAL EXAMINATION: General: A 56-year-old well-developed, well-nourished male, in no acute distress. Alert and oriented x3. Appropriate mood and affect. Right lower extremity, the dressing was changed. Incision was clean, dry, and intact with no erythema, warmth, or signs of infection. Moderate swelling of the right lower leg. Able to plantar flex and dorsiflex at the ankle. +2 dorsalis pedis pulse. Sensation is intact to light touch distally. DISCHARGE CONDITION: Stable. DISCHARGE MEDICATIONS: Home medications continued on discharge to include: 1. Prozac 20 mg by mouth daily. 2. Crestor 20 mg 1 by mouth daily. 3. Multivitamins 1 cap by mouth daily. 4. Spiriva cap inhaler, 1 cap per 18 mcg, 2 caps inhalation daily. 5. Albuterol sulfate 2 puffs inhalation every 4 hours as needed. 6. Vitamin D3 2000 units by mouth twice a day. 7. BuSpar 5 mg, 10 mg by mouth twice a day. 8. Nitroglycerin 0.4 mg sublingual every 5 minutes as needed. 9. Cymbalta 30 mg by mouth daily. 10. Testosterone cypionate 20 mg/mL injection, 20 mg IM, see instructions. 11. Bystolic 2.5 mg by mouth daily. 12. Topamax 25 mg by mouth at bedtime. 13. Tizanidine HCl 2 mg by mouth every night as needed. 14. Oxycodone 10 mg by mouth every 6 hours as needed. 15. EpiPen 0.3 mg/0.3 mL subcu once as needed. 16. Pepcid 20 mg by mouth twice a day. 17. Bumex 1 mg by mouth every morning. 18. Trazodone 100 mg 1 to 2 by mouth as needed. 19. Advair Diskus 25/50 one puff twice a day. 20. Sertraline 100 mg by mouth daily. New medications on discharge to include: 1. Colace 100 mg by mouth twice a day. 2. Warfarin 2 mg by mouth as directed by doctor daily. 3. Percocet 5/325 one to two tabs every 4 to 6 hours as needed for pain. 4. Metformin 500 mg by mouth twice a day. DISCHARGE INSTRUCTIONS: The patient may shower postop day 4. Re-dress the gauze and José Miguel wrap. Keep sutures intact until postop visit. Do not submerge in water including pools or hot tubs. Eat a diet high in fiber to prevent constipation and drinking lot of fluids. He is weightbearing as tolerated on the right lower extremity. Continue Percocet for pain. He may resume oxycodone 10 mg by mouth or Percocet. He should continue to use stool softeners. If he does not have a bowel movement for 48 hours, he should call the office. He will continue physical therapy. Visiting nurses will do wound checks and blood draws on Mondays and . Coumadin dosing on December 25, hold December 26, hold and redraw on December 27. He should not take aspirin, naproxen , or ibuprofen with the Coumadin. He will require antibiotics prior to dental work. According to the hospitalist, he was started on metformin for his diabetes and should follow up with his PCP for blood pressure. He will follow up with Dr. Montague on Tuesday; he should call for an appointment. JEYSON HINDS [id number]/[facility] #: [id number] MTDAnnmarie
== END 2016-12-25 17:00 | disposition home health service (06) | DRG 470 ==
LOC: AA 08:17 → SSU 13:07
PROVIDERS: ADMIT Orthopaedic Surgery Adult Reconstructive Orthopaedic Surgery; ATTEND Orthopaedic Surgery Adult Reconstructive Orthopaedic Surgery
PROC: 0SRC0J9 Replacement of Right Knee Joint with Synthetic Substitute, Cemented, Open Approach (ICD-10-PCS; principal; 2016-12-23 10:15)
DX: M17.11 Unilateral primary osteoarthritis, right knee (principal); I11.9 Hypertensive heart disease without heart failure; Z68.42 Body mass index [BMI] 45.0-49.9, adult; J44.9 Chronic obstructive pulmonary disease, unspecified; I25.10 Atherosclerotic heart disease of native coronary artery without angina pectoris; E78.00 Pure hypercholesterolemia, unspecified; G47.33 Obstructive sleep apnea (adult) (pediatric); E66.01 Morbid (severe) obesity due to excess calories; E11.9 Type 2 diabetes mellitus without complications; M25.761 Osteophyte, right knee; Z86.718 Personal history of other venous thrombosis and embolism; Z85.528 Personal history of other malignant neoplasm of kidney; I25.2 Old myocardial infarction; Z79.891 Long term (current) use of opiate analgesic; Z79.899 Other long term (current) drug therapy; Z88.6 Allergy status to analgesic agent; Z88.5 Allergy status to narcotic agent; Z88.1 Allergy status to other antibiotic agents; Z88.8 Allergy status to other drugs, medicaments and biological substances; Z91.048 Other nonmedicinal substance allergy status; Z87.891 Personal history of nicotine dependence
CPT/HCPCS: 36415; 62327; 71010; 80048; 81003; 83036; 85014; 85018; 85049; 85610; 85730; 86850; 86900; 86901; 87086; 88305; 88311; 94640; 94760; A9270-GY; C1776; J1650; J2250; J2270; J2795; J3010

== ENCOUNTER 2017-05-14 15:54 | Emergency (ER) | payer MEDICARE ==
[2017-05-14] MEDS ORDERED: methylPREDNISolone 125 MG* 2 ML VIAL IM ONE (17:46)
[2017-05-14] MEDS ORDERED: diPHENhydraMINE PO* 50 MG PO ONE (17:46)
--- NOTE | 2017-05-14 17:59 | UC ---
Skin Complaint HPI - HPI Summary HPI Summary: PT NOTICED REDNESS TO THE SKIN OF HIS CHEST THIS MORNING AND IT HAS SPREAD TO BACK, ARMS AND FACE/HEAD. FELL ASLEEP LAST NIGHT WITH A PENCIL IN HIS HAND DOING SOME GAMES AND THE PENCIL STUCK HIM IN THE CHEST. WONDERS IF HE IS HAVING AN INFECTION FROM THAT. OF NOTE PT HAD CT SCAN YESTERDAY WITH IV CONTRAST. HE HAS A H/O ALLERGY TO IV CONTRAST (HIVES) AND WAS PREMEDICATED THIS TIME. HE ALSO FINISHED A 30 DAY COURSE OF DOXY YESTERDAY FOR LYME. NO RESPIRATORY INVOLVEMENT. PT IS FEELING "OFF". . - History of Current Complaint Chief Complaint: UCSkin Time Seen by Provider: 05/14/17 17:34 Stated Complaint: INFECTED CHEST Hx Obtained From: Patient Onset/Duration: Gradual Onset, Lasting Hours, Still Present Timing: Constant Onset Severity: Mild Current Severity: Moderate Pain Intensity: 0 Pain Scale Used: 0-10 Numeric Character: Redness Aggravating Factor(s): Nothing Alleviating Factor(s): Nothing Associated Signs & Symptoms: Positive: Rash. Negative: Nausea, Vomiting, Numbness, Thirst, Diaphoresis, Weakness, Pallor, Shivering, Difficulty Breathing , Fever, Chills, Cough, Wheezing, Chest Pain, Hoarseness, Throat Tightening, Syncope, Drainage, Bruising, Tenderness - Allergy/Home Medications Allergies/Adverse Reactions: Allergies Allergy/AdvReac Type Severity Reaction Status Date / Time Diclofenac [From Arthrotec] Allergy Intermediate GI Upset Verified 12/23/16 08: 41 Gabapentin Allergy Intermediate Hallucinati Verified 12/23/16 08:41 ons Misoprostol [From Arthrotec] Allergy Intermediate GI Upset Verified 12/23/16 08: 41 Pregabalin [From Lyrica] Allergy Intermediate See Comment Verified 12/23/16 08: 41 Aspirin Allergy ANAPHILAXIS Verified 12/23/16 08:41 Celecoxib [From Celebrex] Allergy Rash Verified 12/23/16 08:41 Glipizide Allergy Abdominal Verified 05/14/17 16:33 Pain Amoxicillin AdvReac Intermediate GI Upset Verified 12/23/16 08:41 Azithromycin AdvReac Intermediate GI Upset Verified 12/23/16 08:41 [From Zithromax Z-Bradford] Codeine AdvReac Intermediate GI Upset Verified 12/23/16 08:41 ADHESIVE TAPE Allergy Intermediate Blisters Uncoded 12/23/16 08:41 CELERY, PARSLEY, BAMBOO Allergy GI Upset, Uncoded 12/23/16 08:41 ANAPHYLAXIS ENVIRONMENTAL Allergy TRIGGER Uncoded 12/23/16 08:41 ASTHMA Nuclear med dye Allergy Difficulty Uncoded 12/23/16 08:41 Breathing/Wheezing Home Medications: Home Medications Tiotropium CAP.INH* [Spiriva CAP.INH*] 1 cap.inh INH DAILY 05/14/17 [History Confirmed 05/14/17] Review of Systems Constitutional: Fatigue Skin: Rash Respiratory: Negative Cardiovascular: Negative Gastrointestinal: Negative All Other Systems Reviewed And Are Negative: Yes PMH/Surg Hx/FS Hx/Imm Hx Endocrine History: Diabetes Cardiovascular History: Cardiac Disease, Hypertension Respiratory History: COPD, Asthma - Surgical History Surgical History: Yes Surgery Procedure, Year, and Place: GB 1979T & A 1970 HERNIA BILAT. TRIGGER FINGER HYSTERECTOMY, ,CHEST RECONSTRUCTION GENDER CHANGE 2005 RUPTURED APPENDIX , [place]06/2012 LEFT KNEE MENISCUS REPAIR-[facility] [place] LEFT SHOULDER RECON.10/2013 LUMBAR [id number], PARTIAL LT NEPHRECTOMY , 06/2014. RIGHT KNEE MENISCUS REPAIR 2013 - Family History Known Family History: Positive: Unknown - PT ADOPTED - Social History Alcohol Use: None Alcohol Amount: CLEAN AND SOBER SINCE 1999 Substance Use Type: None Substance Use Comment - Amount & Last Used: CLEAN SINCE 1999 Smoking Status (MU): Former Smoker Type: Cigarettes Amount Used/How Often: 2 PACKS A DAY Length of Time of Smoking/Using Tobacco: 40 YRS Have You Smoked in the Last Year: No When Did the Patient Quit Smoking/Using Tobacco: 2013 - Immunization History Most Recent Influenza Vaccination: 05/2016 Most Recent Pneumonia Vaccination: was done, unsure when Physical Exam Triage Information Reviewed: Yes Appearance: Well-Appearing, No Pain Distress, Well-Nourished Vital Signs: Initial Vital Signs Temp 98.7 F 05/14/17 16:27 Pulse 88 05/14/17 16:27 Resp 18 05/14/17 16:27 BP 140/73 05/14/17 16:27 Pulse Ox 95 05/14/17 16:27 Vital Signs Reviewed: Yes Eyes: Positive: Conjunctiva Clear ENT: Positive: Hearing grossly normal Neck: Positive: Supple Respiratory: Positive: No respiratory distress, No accessory muscle use Cardiovascular: Positive: Pulses Normal Abdomen Description: Positive: Soft Musculoskeletal: Positive: No Edema Neurological: Positive: Alert Psychological: Positive: Age Appropriate Behavior Skin: Positive: rashes - ERYTHEMA TO UPPER CHEST, BACK, NECK, FACE AND UPPER ARMS. Re-Evaluation - Re-Evaluation First Eval Re-Evaluation Time: 18:40 - PT FEELS SLIGHTLY BETTER AFTER 125MG SOLUMEDROL AND 50MG BENADRYL Change: Improved Course/Dx - Diagnoses Provider Diagnoses: ALLERGIC REACTION TO IV CONTRAST Discharge - Discharge Plan Condition: Stable Disposition: HOME Prescriptions: Cetirizine HCl [Zyrtec Allergy 10 MG TAB] 10 mg PO DAILY #30 tab diPHENhydraMINE PO* [Benadryl PO 50 MG CAP*] 50 mg PO BEDTIME #14 cap predniSONE TAB* [Deltasone TAB*] 50 mg PO DAILY #5 tab Patient Education Materials: General Allergic Reaction (ED) Referrals: Aaron William MD [Primary Care Provider] - If Needed Additional Instructions: TODAY YOU RECEIVED 125MG SOLUMEDROL AND 50MG BENADRYL WITH SOME IMPROVEMENT. GO TO THE ER WITHOUT FAIL IF YOU DEVELOP ANY RESPIRATORY INVOLVEMENT, WORSENING RASH, FEVER OR ANY OTHER CONCERNING SYMPTOMS. AVOID HEAT AND HOT WATER TAKE OTC ANTIHISTAMINE DAILY (10MG CETIRIZINE IN THE MORNING, 50MG BENADRYL AT NIGHT) KEEP COOL, CLEAN AND DRY TAKE PICTURES OF THE RASH FOR DOCUMENTATION AND NOTIFY YOUR PHYSICIAN ABOUT YOUR TENDENCY TO REACT TO IV CONTRAST FOR YOUR FUTURE CT SCANS.
[2017-05-14 18:09] VITALS: BP 149/78
== END 2017-05-14 18:55 | disposition home or self-care (01) ==
LOC: UCEAST 15:54
DX: T78.40XA Allergy, unspecified, initial encounter (principal); T50.8X5A Adverse effect of diagnostic agents, initial encounter; R21 Rash and other nonspecific skin eruption; R53.83 Other fatigue; Y92.9 Unspecified place or not applicable; E11.9 Type 2 diabetes mellitus without complications; I10 Essential (primary) hypertension; I51.9 Heart disease, unspecified; J44.9 Chronic obstructive pulmonary disease, unspecified; Z87.890 Personal history of sex reassignment; Z90.49 Acquired absence of other specified parts of digestive tract; Z88.5 Allergy status to narcotic agent; Z88.8 Allergy status to other drugs, medicaments and biological substances; Z88.6 Allergy status to analgesic agent; Z88.1 Allergy status to other antibiotic agents; Z91.041 Radiographic dye allergy status; Z87.891 Personal history of nicotine dependence
CPT/HCPCS: 96372; 99212; A9270-GY; G0463; J2930

== ENCOUNTER 2018-02-24 12:21 | Emergency (ER) | payer MEDICARE ==
[2018-02-24 12:53] VITALS: BP 117/64
--- NOTE | 2018-02-24 13:10 | UC ---
General HPI - HPI Summary HPI Summary: pt reports that he noticed his left leg to be red this morning. He describes it as redness and warmth to his lower leg. He states he has a history of cellulitis and this is exactly the same. He states that both of his legs are chronically swollen but nothing about that is new or different. He denies any associated fever or chills. He denies any chest pain or short of breath. He does admit to prior history of blood clot but that was years ago. When he had blood clot in his leg it was actually painful. - History of Current Complaint Chief Complaint: UCSkin Stated Complaint: LEFT LEG SKIN COMPLAINT Time Seen by Provider: 02/24/18 13:00 Hx Obtained From: Patient Onset/Duration: Gradual Onset Timing: Constant Pain Intensity: 3 Aggravating: Nothing Alleviating: Nothing Associated Signs & Symptoms: Negative: Chest Pain, Fever, SOB - Allergy/Home Medications Allergies/Adverse Reactions: Allergies Allergy/AdvReac Type Severity Reaction Status Date / Time codeine Allergy Severe GI Upset Verified 02/24/18 12:34 amoxicillin Allergy GI Upset Verified 02/24/18 12:34 aspirin Allergy Anaphylatic Verified 02/24/18 12:34 Shock azithromycin Allergy GI Upset Verified 02/24/18 12:34 celecoxib [From Celebrex] Allergy Rash Verified 02/24/18 12:34 diclofenac [From Arthrotec] Allergy GI Upset Verified 02/24/18 12:34 gabapentin Allergy Hallucinati Verified 02/24/18 12:34 ons glipizide Allergy See Comment Verified 02/24/18 12:34 Iodine and Iodide Containing Allergy Hives Verified 02/24/18 12:34 Produc misoprostol [From Arthrotec] Allergy GI Upset Verified 02/24/18 12:34 pregabalin [From Lyrica] Allergy GI Upset Verified 02/24/18 12:34 ADHESIVE TAPE Allergy Intermediate Blisters Uncoded 02/24/18 12:34 CELERY, PARSLEY, BAMBOO Allergy GI Upset, Uncoded 02/24/18 12:34 ANAPHYLAXIS ENVIRONMENTAL Allergy TRIGGER Uncoded 02/24/18 12:34 ASTHMA Nuclear med dye Allergy Difficulty Uncoded 02/24/18 12:34 Breathing/Wheezing Home Medications: Home Medications Cholecalciferol TAB* [Vitamin D TAB*] 2,000 unit DAILY 02/24/18 [History Confirmed 02/24/18] DULoxetine CAP* [Cymbalta CAP*] 60 mg PO DAILY 02/24/18 [History Confirmed ] Famotidine TAB* [Pepcid 20 MG TAB*] 20 mg BID 02/24/18 [History Confirmed ] Fluticasone/Vilanterol [Breo Ellipta 200-25 Mcg INH] 1 puff QAM 02/24/18 [ History Confirmed 02/24/18] Rosuvastatin (NF) [Crestor] 20 mg PO QAM 02/24/18 [History Confirmed 02/24/18] Sertraline* [Zoloft*] 150 mg PO QAM 02/24/18 [History Confirmed 02/24/18] PMH/Surg Hx/FS Hx/Imm Hx - Additional Past Medical History Additional PMH: Chronic bilateral leg edema. Cellulitis to the legs. DVT in leg. Renal CA. GUANACO. Endocrine History: Diabetes, Dyslipidemia Cardiovascular History: Hypertension Respiratory History: COPD - Surgical History Surgical History: Yes Surgery Procedure, Year, and Place: GB 1979T & A 1969' HERNIA BILAT. TRIGGER FINGER HYSTERECTOMY, ,CHEST RECONSTRUCTION GENDER CHANGE 2005 RUPTURED APPENDIX , [place]06/2012 LEFT KNEE MENISCUS REPAIR-[facility] LEFT SHOULDER RECON.10/2013 LUMBAR [id number], PARTIAL LT NEPHRECTOMY , 06/2014. RIGHT KNEE MENISCUS REPAIR 2013 - Family History Known Family History: Positive: Unknown - PT ADOPTED - Social History Occupation: Employed Full-time Alcohol Use: None Alcohol Amount: CLEAN AND SOBER SINCE 1999 Substance Use Type: None Substance Use Comment - Amount & Last Used: CLEAN SINCE 1999 Smoking Status (MU): Former Smoker Type: Cigarettes Amount Used/How Often: 2 PACKS A DAY Length of Time of Smoking/Using Tobacco: 40 YRS Have You Smoked in the Last Year: No When Did the Patient Quit Smoking/Using Tobacco: 2013 - Immunization History Most Recent Influenza Vaccination: 05/2016 Most Recent Tetanus Shot: unknown Most Recent Pneumonia Vaccination: was done, unsure when Vaccination Up to Date: Yes Review of Systems Constitutional: Negative Skin: Rash - Left lower leg Eyes: Negative ENT: Negative Respiratory: Negative Cardiovascular: Negative Gastrointestinal: Negative Genitourinary: Negative Motor: Negative Neurovascular: Negative Musculoskeletal: Edema - Chronic both lower legs Neurological: Negative Psychological: Negative Is Patient Immunocompromised?: No All Other Systems Reviewed And Are Negative: Yes Physical Exam Triage Information Reviewed: Yes Appearance: Well-Appearing Vital Signs: Initial Vital Signs Temp 98.2 F 02/24/18 12:42 Pulse 74 02/24/18 12:42 Resp 16 02/24/18 12:42 BP 117/64 02/24/18 12:42 Pulse Ox 94 02/24/18 12:42 Vital Signs Reviewed: Yes Eyes: Positive: Conjunctiva Clear ENT: Positive: Normal ENT inspection Neck: Positive: Supple, Nontender, No Lymphadenopathy Respiratory: Positive: Lungs clear, Normal breath sounds Cardiovascular: Positive: RRR, No Murmur Abdomen Description: Positive: Nontender, No Organomegaly, Soft Bowel Sounds: Positive: Present Musculoskeletal: Positive: Edema @ - Both lower extremities which the patient notes is chronic and unchanged. Calves are nontender and there are no cords. Neurological: Positive: Alert Psychological: Positive: Age Appropriate Behavior Skin Exam: Normal, Other - Left lower extremity has mild erythema and warmth. Course/Dx - Course Course Of Treatment: History exam suggests cellulitis; however, advised patient that DVT can sometimes have a similar presentation. Patient states that he has no change in his swelling, no pain in his leg and does not want an ultrasound because this is consistent with a cellulitis. Advised of risk for missing DVT he still declining ultrasound. We'll treat for cellulitis need for close follow -up stressed. Patient also advised to the ER for any change or worsening. - Differential Dx - Multi-Symptom Provider Diagnoses: Cellulitis left lower extremity. Discharge - Sign-Out/Discharge Documenting (check all that apply): Discharge/Admit/Transfer - Discharge Plan Condition: Stable Disposition: HOME Prescriptions: Cephalexin CAP* [Keflex CAP*] 500 mg PO TID #30 cap Patient Education Materials: Cellulitis (ED) Referrals: Aaron William MD [Primary Care Provider] - 3 Days - Billing Disposition and Condition Condition: STABLE Disposition: Home
== END 2018-02-24 13:17 | disposition home or self-care (01) ==
LOC: UCCORT 12:21
DX: L03.116 Cellulitis of left lower limb (principal); Z86.718 Personal history of other venous thrombosis and embolism; Z88.6 Allergy status to analgesic agent; Z88.1 Allergy status to other antibiotic agents; Z88.5 Allergy status to narcotic agent; Z88.0 Allergy status to penicillin; Z88.8 Allergy status to other drugs, medicaments and biological substances; E11.9 Type 2 diabetes mellitus without complications; I10 Essential (primary) hypertension; E78.5 Hyperlipidemia, unspecified; J44.9 Chronic obstructive pulmonary disease, unspecified; Z87.891 Personal history of nicotine dependence
CPT/HCPCS: 99212; G0463

== ENCOUNTER 2018-11-25 21:30 | Emergency (ER) | payer MEDICARE ==
[2018-11-25 21:40] VITALS: BP 148/79
[2018-11-25] MEDS ORDERED: Amoxicillin/Clavulanate TAB* 875 MG PO ONE (21:59)
--- NOTE | 2018-11-25 22:00 | UC ---
Throat Pain/Nasal Franck HPI - HPI Summary HPI Summary: C/O tender swelling in front of the left ear x 3 days. No fevers/ sweats or chills. - History of Current Complaint Chief Complaint: UCSkin Stated Complaint: JAW COMPLAINT Time Seen by Provider: 11/25/18 21:46 Hx Obtained From: Patient Onset/Duration: Gradual Onset, Lasting Days - 3, Worse Since - onset Severity: Moderate Pain Intensity: 7 Cough: None Associated Signs & Symptoms: Positive: Negative - Allergies/Home Medications Allergies/Adverse Reactions: Allergies Allergy/AdvReac Type Severity Reaction Status Date / Time codeine Allergy Severe GI Upset Verified 11/25/18 21:41 amoxicillin Allergy GI Upset Verified 11/25/18 21:41 aspirin Allergy Anaphylatic Verified 11/25/18 21:41 Shock azithromycin Allergy GI Upset Verified 11/25/18 21:41 celecoxib [From Celebrex] Allergy Rash Verified 11/25/18 21:41 diclofenac [From Arthrotec] Allergy GI Upset Verified 11/25/18 21:41 gabapentin Allergy Hallucinati Verified 11/25/18 21:41 ons glipizide Allergy See Comment Verified 11/25/18 21:41 Iodine and Iodide Containing Allergy Hives Verified 11/25/18 21:41 Produc misoprostol [From Arthrotec] Allergy GI Upset Verified 11/25/18 21:41 pregabalin [From Lyrica] Allergy GI Upset Verified 11/25/18 21:41 basil AdvReac Severe GI DISTRESS Verified 11/25/18 21:41 ADHESIVE TAPE Allergy Intermediate Blisters Uncoded 11/25/18 21:41 CELERY, PARSLEY, BAMBOO Allergy GI Upset, Uncoded 11/25/18 21:41 ANAPHYLAXIS ENVIRONMENTAL Allergy TRIGGER Uncoded 11/25/18 21:41 ASTHMA Nuclear med dye Allergy Difficulty Uncoded 11/25/18 21:41 Breathing/Wheezing PMH/Surg Hx/FS Hx/Imm Hx Cardiovascular History: Cardiac Disease Respiratory History: COPD, Asthma Other Cancer History: Renal cell cancer - Surgical History Surgical History: Yes Surgery Procedure, Year, and Place: GB 1980T & A 1970'S HERNIA BILAT. TRIGGER FINGER HYSTERECTOMY, ,CHEST RECONSTRUCTION GENDER CHANGE 2006 RUPTURED APPENDIX [facility], [place]06/2012 LEFT KNEE MENISCUS REPAIR-[facility] LEFT SHOULDER RECON.10/2013 LUMBAR [id number], PARTIAL LT NEPHRECTOMY , 06/2014. RIGHT KNEE MENISCUS REPAIR 2013, RIGHT KNEE REPLACEMENT - Family History Known Family History: Positive: Unknown - PT ADOPTED - Social History Occupation: Employed Full-time Lives: Alone Alcohol Use: None Alcohol Amount: CLEAN AND SOBER SINCE 1999 Substance Use Type: None Substance Use Comment - Amount & Last Used: CLEAN SINCE 1999 Smoking Status (MU): Former Smoker Type: Cigarettes Amount Used/How Often: 2 PACKS A DAY Length of Time of Smoking/Using Tobacco: 40 YRS Have You Smoked in the Last Year: No When Did the Patient Quit Smoking/Using Tobacco: 2013 - Immunization History Most Recent Influenza Vaccination: 05/2016 Most Recent Tetanus Shot: unknown Most Recent Pneumonia Vaccination: was done, unsure when Vaccination Up to Date: Yes Review of Systems All Other Systems Reviewed And Are Negative: Yes ENT: Positive: Other - swelling in front of the left ear. Is Patient Immunocompromised?: No Physical Exam Triage Information Reviewed: Yes Appearance: Well-Appearing, Pain Distress, Obese Vital Signs: Initial Vital Signs Temp 99.4 F 11/25/18 21:34 Pulse 103 11/25/18 21:34 Resp 18 11/25/18 21:34 BP 148/79 11/25/18 21:34 Pulse Ox 94 11/25/18 21:34 Vital Signs Reviewed: Yes ENT: Positive: Pharynx normal, TMs normal, Other - Tender salivary gland Neck exam: Normal Respiratory Exam: Normal Cardiovascular Exam: Normal Musculoskeletal Exam: Normal Neurological Exam: Normal Psychological Exam: Normal Skin Exam: Normal Throat Pain/Nasal Course/Dx - Differential Dx/Diagnosis Differential Diagnosis/HQI/PQRI: Laryngitis, Mononucleosis, URI Provider Diagnosis: Sialadenitis Discharge - Sign-Out/Discharge Documenting (check all that apply): Patient Departure All imaging exams completed and their final reports reviewed: No Studies - Discharge Plan Condition: Stable Disposition: HOME Prescriptions: Penicillin VK 500 MG TAB(NF) [Penicillin VK 500 mg Tab] 500 mg PO QID #28 tab Patient Education Materials: Sialoadenitis (ED), Penicillin V (By mouth) Referrals: Aaron William MD [Primary Care Provider] - - Billing Disposition and Condition Condition: STABLE Disposition: Home
[2018-11-25] MEDS ORDERED: Penicillin VK TAB* 250 MG PO ONE (22:10)
== END 2018-11-25 22:23 | disposition home or self-care (01) ==
LOC: UCEAST 21:30
DX: K11.20 Sialoadenitis, unspecified (principal); J44.9 Chronic obstructive pulmonary disease, unspecified; Z88.5 Allergy status to narcotic agent; Z88.0 Allergy status to penicillin; Z88.8 Allergy status to other drugs, medicaments and biological substances; Z88.1 Allergy status to other antibiotic agents; Z91.09 Other allergy status, other than to drugs and biological substances; Z91.018 Allergy to other foods; Z91.041 Radiographic dye allergy status; Z87.891 Personal history of nicotine dependence
CPT/HCPCS: 99212; A9270-GY; G0463

== ENCOUNTER 2018-11-27 19:09 | Inpatient (IN) | payer MEDICARE ==
[2018-11-27] MEDS ORDERED: methylPREDNISolone 125 MG* 2 ML VIAL ONE (19:24)
[2018-11-27] MEDS ORDERED: Famotidine IV* 10 MG/ML 2 ML (20 mg) ONE (19:24)
[2018-11-27] MEDS ORDERED: EPINEPHRINE 1 MG/ML 1 ML VIAL ONE (19:24)
[2018-11-27] MEDS ORDERED: EPINEPHrine,Rac 2.25% NEB.SOL* 0.5 ML ONE (19:26)
[2018-11-27] MEDS ORDERED: EPINEPHrine,Rac 2.25% NEB.SOL* 0.5 ML INH ONE (19:29)
--- NOTE | 2018-11-27 19:37 | ED ---
Allergic Reaction/Systemic - HPI Summary HPI Summary: Patient is a 58 y/o male who presents to the ED c/o SOB. He believes he is having an allergic reaction to Penicillin. He was given Penicillin at the 2 days ago for a dental issue. Patient began having SOB yesterday, and now also c/ o abdominal pain and rash to his upper body. He also c/o congestion, and states that he didnt come in yesterday because he thought the SOB was due to a cold. Patient denies any throat closting. His o2 sats are in the 70s. He is allergic to Codeine, Amoxicillin, ASA, Azithromycin, celecoxib, Diclofenac, Gabapentin, Glipizine, Iodine, Misoprostol, Pregabalin, Benadryl. PMHx DM, CHF, DE, COPD, asthma. - History of Current Complaint Hx Obtained From: Patient Onset/Duration: Gradual Onset, Started days ago - 1, Still Present Timing: Constant Character: Swelling Aggravating Factor(s): Other - Penicillin Associated Signs And Symptoms: Positive: Abdominal Pain, Difficulty Breathing, Rash. Negative: Throat Tightening - Allergies/Home Medications Allergies/Adverse Reactions: Allergies Allergy/AdvReac Type Severity Reaction Status Date / Time codeine Allergy Severe GI Upset Verified 11/25/18 21:41 amoxicillin Allergy severe abd Verified 11/25/18 22:25 pain aspirin Allergy Anaphylatic Verified 11/25/18 21:41 Shock azithromycin Allergy GI Upset Verified 11/25/18 21:41 celecoxib [From Celebrex] Allergy Rash Verified 11/25/18 21:41 diclofenac [From Arthrotec] Allergy GI Upset Verified 11/25/18 21:41 gabapentin Allergy Hallucinati Verified 11/25/18 21:41 ons glipizide Allergy See Comment Verified 11/25/18 21:41 Iodine and Iodide Containing Allergy Hives Verified 11/25/18 21:41 Produc misoprostol [From Arthrotec] Allergy GI Upset Verified 11/25/18 21:41 pregabalin [From Lyrica] Allergy GI Upset Verified 11/25/18 21:41 basil AdvReac Severe GI DISTRESS Verified 11/25/18 21:41 ADHESIVE TAPE Allergy Intermediate Blisters Uncoded 11/25/18 21:41 CELERY, PARSLEY, BAMBOO Allergy GI Upset, Uncoded 11/25/18 21:41 ANAPHYLAXIS ENVIRONMENTAL Allergy TRIGGER Uncoded 11/25/18 21:41 ASTHMA Nuclear med dye Allergy Difficulty Uncoded 11/25/18 21:41 Breathing/Wheezing Home Medications: Home Medications Glimepiride 1 mg PO BID 11/28/18 [History Confirmed 11/28/18] predniSONE TAB* [Deltasone 1 MG TAB*] 8 mg PO DAILY 11/28/18 [History Confirmed 11/28/18] PMH/Surg Hx/FS Hx/Imm Hx Endocrine/Hematology History: Reports: Hx Diabetes Cardiovascular History: Reports: Hx Angina, Hx Coronary Artery Disease, Hx Hypercholesterolemia, Hx Hypertension, Hx Myocardial Infarction, Hx Peripheral Vascular Disease - dvts x3 1982, 2008 Denies: Hx Pacemaker/ICD, Hx Valvular Heart Disease, Other Cardiovascular Problems/Disorders Respiratory History: Reports: Hx Asthma, Hx Chronic Obstructive Pulmonary Disease (COPD), Hx Pulmonary Edema - 11/2015, Tx IN ER [facility], Hx Sleep Apnea - Borderline, Other Respiratory Problems/Disorders - Hx OF SMOKING 1 1/2 40 YRS , QUIT 2013 GI History: Reports: Hx Gastroesophageal Reflux Disease - ON MEDS, Hx Irritable Bowel - LONG TIME AGO Denies: Other GI Disorders History: Reports: Other Problems/Disorders - 2013 LEFT KIDNEY CANCER, PARTIAL NEPHRECTOMY Musculoskeletal History: Reports: Hx Arthritis - ALL OVER, Hx Bursitis - LEFT SHOULDER, Hx Tendonitis - right arm, Other Musculoskeletal History Sensory History: Denies: Hx Contacts or Glasses, Hx Hearing Aid Opthamlomology History: Denies: Hx Contacts or Glasses Neurological History: Reports: Hx Nerve Disease - leg pain r/t back issues Denies: Other Neuro Impairments/Disorders Psychiatric History: Reports: Hx Anxiety - ON MEDS, Hx Depression - ON MEDS Denies: Hx Panic Disorder - Cancer History Cancer Type, Location and Year: left renal CA with partial nephrectomy - Surgical History Surgery Procedure, Year, and Place: GB 1980T & A 1970'S HERNIA BILAT. TRIGGER FINGER HYSTERECTOMY, ,CHEST RECONSTRUCTION GENDER CHANGE 2005 RUPTURED APPENDIX , BROADUS06/2012 LEFT KNEE MENISCUS REPAIR-[facility] LEFT SHOULDER RECON.10/2013 LUMBAR [id number], PARTIAL LT NEPHRECTOMY , 06/2014. RIGHT KNEE MENISCUS REPAIR 2013, RIGHT KNEE REPLACEMENT Hx Anesthesia Reactions: No Infectious Disease History: Denies: History Other Infectious Disease - Family History Known Family History: Positive: Unknown - PT ADOPTED - Social History Alcohol Use: None Alcohol Amount: CLEAN AND SOBER SINCE 1999 Substance Use Type: Reports: None Substance Use Comment - Amount & Last Used: CLEAN SINCE 1999 Hx Tobacco Use: Yes Smoking Status (MU): Former Smoker Type: Cigarettes Amount Used/How Often: 2 PACKS A DAY Length of Time of Smoking/Using Tobacco: 40 YRS Have You Smoked in the Last Year: No Review of Systems Positive: Other - congestion, NEGATIVE: throat closing Positive: Shortness Of Breath Positive: Abdominal Pain Positive: Rash All Other Systems Reviewed And Are Negative: Yes Physical Exam - Summary Physical Exam Summary: VITAL SIGNS: Reviewed. GENERAL: Patient is a well-developed and obese MALE who is lying comfortable in the stretcher. Patient is in mild respiratory distress. HEAD AND FACE: No signs of trauma. No ecchymosis, hematomas or skull depressions. No sinus tenderness. Edema of face and eyelids. EYES: PERRLA, EOMI x 2, No injected conjunctiva, no nystagmus. EARS: Hearing grossly intact. Ear canals and tympanic membranes are within normal limits. MOUTH: Oropharynx within normal limits. No swelling to tongue or lips. NECK: Supple, trachea is midline, no adenopathy, no JVD, no carotid bruit, no c- spine tenderness, neck with full ROM. CHEST: Symmetric, no tenderness at palpation LUNGS: Decreased breath sounds. Bilateral wheezes. No crackles. Airways is patent at this time. CVS: Regular rate and rhythm, S1 and S2 present, no murmurs or gallops appreciated. ABDOMEN: Soft, non-tender. No signs of distention. No rebound no guarding, and no masses palpated. Bowel sounds are normal. EXTREMITIES: FROM in all major joints, no edema, no cyanosis or clubbing. NEURO: Alert and oriented x 3. No acute neurological deficits. Speech is normal and follows commands. SKIN: Dry and warm. Erythema with some hives to chest, BUE, and back. Triage Information Reviewed: Yes Vital Signs Reviewed: Yes Diagnostics - Laboratory Result Diagrams: 11/28/18 07:31 11/28/18 07:31 Lab Statement: Any lab studies that have been ordered have been reviewed, and results considered in the medical decision making process. - EKG 21:04 Cardiac Rate: NL - 93 bpm EKG Rhythm: Sinus Rhythm ST Segment: Normal Summary of EKG Findings: Nl axis, poor quality EKG Re-Evaluation - Re-Evaluation First Eval Re-Evaluation Time: 21:00 Change: Improved Comment: Pt is feeling much better now. Allergic Reaction Course/Dx - Course Assessment/Plan: This patient is a 58-year-old male who presents to the emergency department with with a chief complaint of having shortness of breath, unable to take a deep breaths, feeling that his throat is closing. Patient reports that he is allergic to amoxicillin however he was given penicillin to treat sialadenitis at the walk-in clinic. Patient has taken 2 tablets and he has developed the above symptoms. In the ED course the patient was started with IV fluids, Solu-Medrol, Pepcid and an Epinephrine SQ. the patient is allergic to Benadryl therefore we will unable to give Benadryl. The patient reports that he is diabetic so therefore we will be checking his sugars are equally. Patient is also wheezing therefore the patient was given a racemic epi. After a couple hours and observation the patient is feeling better. All his symptoms have resolved. I placed the patient on BiPAP since she uses BiPAP at home. At this time the patient will be discharged home with follow-up with PCP. He will be given a prescription for an EpiPen, prednisone, and Pepcid. He was requested to check his fingersticks more often and if needed to use his insulin if he develops hyperglycemia. The patient understands and agrees. Patient is hemodynamically stable alert and oriented 3. - Diagnoses Provider Diagnoses: PNA (pneumonia) Discharge - Sign-Out/Discharge Documenting (check all that apply): Patient Departure - Discharge Patient Received Moderate/Deep Sedation with Procedure: No - Discharge Plan Condition: Stable Disposition: ADMITTED TO [facility] - Billing Disposition and Condition Condition: STABLE Disposition: Home - Attestation Statements Document Initiated by Scribe: Yes Documenting Scribe: Olive Sandoval Provider For Whom Tricia is Documenting (Include Credential): Sedrick Tapia MD Scribe Attestation: Olive Puckett, scribed for Sedrick Tapia MD on 11/29/18 at 2144. Scribe Documentation Reviewed: Yes Provider Attestation: The documentation as recorded by the Olive bloom accurately reflects the service I personally performed and the decisions made by me, Sedrick Tapia MD Status of Scribe Document: Viewed
[2018-11-27 20:24] LABS: ABS Basophils 0 10^3/ul (0-0.2); ABS Eosinophils 0.1 10^3/ul (0-0.6); ABS Monocytes 1.3 10^3/ul (0-0.8); ABS Neutrophils 8.7 10^3/ul (1.5-7.7); ABS Nucleated RBC 0 10^3/ul; Eosinophil % 0.4 %; Hematocrit 50 % (36-46); Hemoglobin 16.7 g/dL (14.0-18.0); Lymphocyte % 16.5 %; Mean Corpuscular HGB Conc 33 g/dL (31-36); Mean Corpuscular Hemoglobin 31 pg (27-31); Mean Corpuscular Volume 94 fL (80-94); Mean Platelet Volume 7.8 fL (7.4-10.4); Nucleated Red Blood Cells % 0.2; Platelet Count 142 10^3/uL (150-450); Red Blood Count 5.39 10^6 /uL (4.18-5.48); Red Cell Distribution Width 16 % (10.5-15); White Blood Count 12.1 10^3/uL (3.5-10.8)
[2018-11-27 20:41] LABS: Albumin 3.5 g/dL (3.2-5.2); Albumin/Globulin Ratio 1.3 (1-3); BUN/Creatinine Ratio 11.5 (8-20); C Reactive Protein 103.71 mg/L (<8.01); Calcium 8.8 mg/dL (8.6-10.3); EGFR African American 108.7 (>60); EGFR Non-African American 89.8 (>60); Globulin 2.8 g/dL (2-4); Potassium 3.6 mmol/L (3.5-5.0); Total Bilirubin 1.2 mg/dL (0.2-1.0); Total Protein 6.3 g/dL (6.4-8.9)
[2018-11-27] MEDS ORDERED: Albuterol/Ipratropium NEB.SOL* Albuterol 2.5 MG/Ipratropium 0.5 MG 3 ML INH ONE (22:27)
[2018-11-27] MEDS ORDERED: Albuterol 2.5 MG/3 ML NEB.SOL* (0.083%) INH PRN (22:27)
--- NOTE | 2018-11-27 22:27 | ED ---
Progress - Progress Note Progress Note: The pt was not originally a signout from Dr. Tapia but the pt is wheezing and is not breathing well on his bipap. The pt will be staying in the ED for further workup. - Results/Orders Results/Orders: CXR shows bilateral basilar infiltrate. Pending official radiology report. Course/Dx - Course Course Of Treatment: The pt was not originally a signout from Dr. Tapia but the pt is wheezing and is not breathing well on his bipap. The pt will be staying in the ED for further workup. CXR shows bilateral basilar infiltrate, pending official radiology report. The pt will be admitted to [facility] under Dr. White with a dx of pneumonia. - Diagnoses Provider Diagnoses: PNA (pneumonia) Discharge - Sign-Out/Discharge Documenting (check all that apply): Patient Departure, Receiving Sign-Out Receiving patient FROM: Sedrick Tapia - Discharge Plan Condition: Stable Disposition: ADMITTED TO [facility] Prescriptions: Clindamycin HCl 150 mg PO Q6H #40 capsule EPINEPHrine [Epipen 2-[place]] 0.3 mg SUBCUT ONCE PRN #1 inj PRN Reason: Allergy Symptoms Famotidine TAB* [Pepcid 20 MG TAB*] 20 mg PO DAILY #4 tab predniSONE [Prednisone 20 MG TAB] 20 mg PO DAILY #4 tablet Patient Education Materials: Allergies (ED) Referrals: Aaron William MD [Primary Care Provider] - 3 Days () Additional Instructions: RETURN TO THE ED FOR ANY WORSENING OR NEW SYMPTOMS. - Attestation Statements Document Initiated by Scribe: Yes Documenting Scribe: Ashtyn Mccallum Provider For Whom Tricia is Documenting (Include Credential): Seamus Craig MD. Scribe Attestation: Ashtyn Puckett, scribed for Seamus Craig MD. on 11/27/18 at 5165. Status of Scribe Document: Ready Consult Consult: [id number] - Spoke with Dr. White who will be accepting the pt to [facility] with a dx of pneumonia.
[2018-11-27] MEDS ORDERED: methylPREDNISolone 125 MG* 2 ML VIAL IV ONE (22:28)
[2018-11-27] MEDS ORDERED: Levofloxacin 750 MG IVPREMIX(* 750 MG/150 ML BAG IVPB ONE (22:57)
[2018-11-28 00:48] LABS: Urine Appearance Clear; Urine Bacteria 1+ (Absent); Urine Bilirubin Negative (Negative); Urine Blood Negative (Negative); Urine Color Yellow; Urine Glucose Negative (Negative); Urine Ketones Trace (Negative); Urine Nitrite Negative (Negative); Urine Protein Negative (Negative); Urine Red Blood Cell Trace(0-2/hpf) (Absent); Urine Specific Gravity 1.006 (1.010-1.030); Urine Squamous Epithelial Cell Present (Absent); Urine Urobilinogen Negative (Negative); Urine White Blood Cell Trace(0-5/hpf) (Absent)
[2018-11-28 00:59] LABS: Influenza A Molecular NEGATIVE (Negative); Influenza B Molecular NEGATIVE (Negative)
[2018-11-28] MEDS ORDERED: Acetaminophen TAB* 325 MG PO PRN (01:10)
[2018-11-28] MEDS ORDERED: Albuterol 2.5 MG/3 ML NEB.SOL* (0.083%) INH PRN (01:10)
[2018-11-28] MEDS ORDERED: Enoxaparin(*) 40 MG/0.4 ML SYR SUBCUT SCH (02:00)
[2018-11-28] MEDS ORDERED: Dextrose 50% Syringe 50 ML* 25 GM/50 ML SYRINGE IV PUSH PRN (02:41)
[2018-11-28] MEDS: oxyCODONE TAB* 5 MG TAB PO PRN ×4 (03:00→20:37)
[2018-11-28] MEDS: Mometasone/Formoter 200/5 MDI INH SCH ×2 (07:47→20:07)
[2018-11-28 08:04] LABS: ABS Basophils 0 10^3/ul (0-0.2); ABS Eosinophils 0 10^3/ul (0-0.6); ABS Lymphocytes 0.8 10^3/ul (1.0-4.8); ABS Monocytes 0.3 10^3/ul (0-0.8); ABS Neutrophils 8.7 10^3/ul (1.5-7.7); ABS Nucleated RBC 0 10^3/ul; Calcium 8.9 mg/dL (8.6-10.3); Eosinophil % 0 %; Hematocrit 51 % (36-46); Hemoglobin 17.1 g/dL (14.0-18.0); Lymphocyte % 7.9 %; Mean Corpuscular HGB Conc 34 g/dL (31-36); Mean Corpuscular Hemoglobin 31 pg (27-31); Mean Corpuscular Volume 93 fL (80-94); Mean Platelet Volume 8.2 fL (7.4-10.4); Nucleated Red Blood Cells % 0.1; Platelet Count 140 10^3/uL (150-450); Potassium 4.3 mmol/L (3.5-5.0); Red Blood Count 5.48 10^6 /uL (4.18-5.48); Red Cell Distribution Width 15 % (10.5-15); White Blood Count 9.8 10^3/uL (3.5-10.8)
[2018-11-28 08:10] LABS: BUN/Creatinine Ratio 17.9 (8-20); EGFR African American 113.2 (>60); EGFR Non-African American 93.5 (>60)
--- NOTE | 2018-11-28 08:14 | HP ---
CC: Dr. Aaron William HISTORY AND PHYSICAL: DATE OF ADMISSION: 11/28/18 PRIMARY CARE PROVIDER: Dr. Aaron William CONTACT: friend, Herminio Bhatti. CODE STATUS: Full code. CHIEF COMPLAINT: Shortness of breath for 1 day. HISTORY OF PRESENT ILLNESS: Mr. Fajardo is a 58-year-old man with a history of coronary artery disease with SC in 1994 status post thrombolytic therapy, COPD, obesity, depression, renal cell carcinoma status post partial nephrectomy, hypertension, GERD, 3 DVTs between 1982 and 2008 no longer on anticoagulation, who is presenting to the emergency room with acute shortness of breath. The patient reports that 2 days ago he had gone to an urgent care for a dental issue where he had received penicillin given concern for left parotitis. After starting on penicillin, the patient reports that he initially began experiencing abdominal pain and then eventually shortness of breath without wheezing. The patient reports that for the last couple days he has also felt very confused and therefore was not recognizing exactly what symptoms were occurring, and in hindsight reports that he has also been having an increased cough over the last couple of days as well as fevers and sweating. He reports that yesterday it took him over an hour just to take all his medications given severe fatigue and could barely stand. He denies wheezing, chest pain, nausea, vomiting, diarrhea. He also denies rash. He does not feel like his throat has been closing or that he is having other symptoms concerning for anaphylaxis, which he has experienced in the past. He initially thought that this shortness of breath and abdominal pain were due to an allergy, which is why he presented to the emergency room. In the emergency room, the patient was noted to have oxygen saturations in the 70s. He was given IV fluids, IV steroids, Pepcid, and epinephrine subq. Benadryl was held as the patient has a history of Benadryl allergy. He was given racemic epinephrine nebulizer. The patient began feeling much better after a couple of hours and had even been asking to go home. However, after getting ready to be discharged from the emergency room, the patient was noted to again have recurrence of his shortness of breath and he was requiring increased oxygen through the BiPAP, so he was ordered for a chest x-ray. The chest x-ray was concerning for bilateral basilar infiltrates per ER attending read, so he was admitted to the hospital for diagnosis of pneumonia. PAST MEDICAL HISTORY: 1. Myocardial infarction in 1994, cardiac catheterization 50% mid right coronary lesion, narrowing in mid LAD, status post thrombolytic therapy dissolving clot in RCA. 2. COPD. 3. Hypertension. 4. Obesity. 5. Sleep apnea, on home BiPAP. 6. Depression. 7. GERD. 8. Three DVTs between 1982 and 2008, no longer on anticoagulation. 9. Renal cell carcinoma, status post L partial nephrectomy. 10. Diabetes. 11. Advanced knee osteoarthritis. PAST SURGICAL HISTORY: 1. Left partial nephrectomy. 2. Appendectomy. 3. Cholecystectomy. 4. Bilateral mastectomy and hysterectomy. 5. Left rotator cuff repair. 6. Left knee partial meniscectomy. 7. Bilateral trigger finger release. 8. Lumbar laminectomy. 9. Total right knee arthroplasty. HOME MEDICATIONS: 1. Prednisone 8 mg daily. 2. Breo Ellipta 1 puff twice a day. 3. Albuterol 2 puffs q.6 hours as needed. 4. Duloxetine 60 mg daily. 5. Sertraline 150 mg daily. 6. Testosterone cypionate 200 mg IM every 2 weeks. 7. Rosuvastatin 20 mg daily. 8. Glimepiride 1 mg twice a day. 9. Nebivolol 2.5 mg daily. 10. Buspirone 10 mg twice a day. 11. Famotidine 20 mg twice a day. 12. Oxycodone 10 mg q.4 hours as needed for pain. 13. Bumetanide 1 mg daily. ALLERGIES: Please see extensive allergy list in chart. 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 Lives alone with dog and cat at home. Quit smoking in 2013, prior significant smoking history. Remote alcohol and heroin use, quit in 1999. FAMILY HISTORY: Unknown, the patient is adopted. REVIEW OF SYSTEMS: As per the HPI, otherwise complete 10-point review of systems is negative. PHYSICAL EXAMINATION GENERAL: Chronically ill-appearing man, in no acute distress, nontoxic, friendly and conversant, speaking in full sentences. VITAL SIGNS: T-max 100.4, heart rate 80s, respiratory rate 18, blood pressure 126/78, O2 saturation 92% on 6 L by mask. NECK: Unable to appreciate JVP due to habitus. LUNGS: Reduced sounds likely due to habitus, but with good air movement and no wheeze bilaterally. HEART: Regular rate and rhythm. No murmurs, gallops, or rubs. ABDOMEN: Protuberant, soft. Mild epigastric tenderness. No guarding or rebound. No organomegaly. Nondistended. EXTREMITIES: Warm and well perfused. Trace ankle edema. SKIN: Warm and diaphoretic diffusely. LABORATORY DATA/DIAGNOSTIC STUDIES: White blood cell elevated at 12.1, platelets decreased to 142. BMP unremarkable. Total bilirubin mildly elevated at 1.2. C- reactive protein elevated to 104. UA not concerning for infection. Influenza negative. Chest x-ray concerning for bibasilar consolidations. EKG: Normal sinus rhythm, 93. ASSESSMENT AND PLAN: A 58-year-old man with a history of coronary artery disease; chronic obstructive pulmonary disease; obesity complicated by obstructive sleep apnea on home BiPAP; depression; hypertension, who is presenting with subacute fever, diaphoresis, fatigue, shortness of breath, and cough, was found to have fever, leukocytosis, and chest x-ray concerning for pneumonia. 1. Pneumonia c/b sepsis. This is the leading diagnosis given symptoms and imaging findings. We will continue the patient on Levaquin given multiple drug allergies. Appreciate respiratory help with BiPAP titration to maintain oxygen saturation 88% to 92%. Follow up blood culture data. 2. Chronic obstructive pulmonary disease. We will switch the patient's IV steroids to p.o. prednisone burst 40 mg daily for 4 days. Likely will need to titrate down to the patient's home prednisone dose of 8 mg daily. Continue albuterol nebs p.r.n. Continue home Advair formulary inhaler. Goal oxygen saturation is 88% to 92% and the patient can continue his home BiPAP. 3. Coronary artery disease. Continue home rosuvastatin 20 mg daily. 4. Depression. Continue home sertraline, duloxetine, and buspirone. 5. Gender affirming care. Continue testosterone 200 mg IM every 2 weeks. 6. Arthritis. Continue home oxycodone 10 mg q.4 hours as needed for pain. 7. Hypertension. Continue home nebivolol 2.5 mg daily. 8. Lower extremity edema. Unknown if the patient has a history of diastolic heart failure. Continue home bumetanide 1 mg daily. 9. History of deep venous thrombosis. No longer on anticoagulation. For DVT prophylaxis while admitted, Lovenox subcu daily. 10. Gastroesophageal reflux disease. Continue famotidine as needed. 11. DM2. Stop home glimepiride and start lispro ISS with mealtime fingersticks. May have high requirements given steroids. 12. Full code. TIME SPENT: Approximately 60 minutes spent on admission of this patient, more than half of which was spent at bedside for interview and exam. [id number] #: [id number] MTDD
[2018-11-28] MEDS ORDERED: predniSONE TAB* 1 MG PO SCH (09:00)
[2018-11-28] MEDS ORDERED: predniSONE TAB* 5 MG PO SCH (09:00)
[2018-11-28] MEDS: Enoxaparin(*) 40 MG/0.4 ML SYR SUBCUT SCH (09:03)
[2018-11-28] MEDS: Atorvastatin* 40 MG TAB PO SCH (09:05)
[2018-11-28] MEDS: Sertraline* 50 MG TAB PO SCH (09:05)
[2018-11-28] MEDS: CMCS: Nebivolol TAB (NF) 2.5 MG TAB PO SCH (09:05)
[2018-11-28] MEDS: Bumetanide TAB* 1 MG PO SCH (09:05)
[2018-11-28] MEDS: busPIRone TAB* 5 MG PO SCH ×2 (09:05→20:37)
[2018-11-28] MEDS: Multivitamins/Minerals TAB PO SCH (09:06)
[2018-11-28] MEDS: predniSONE TAB* 20 MG PO SCH (09:06)
[2018-11-28] MEDS: Insulin LISPRO* 1 UNITS UNIT SUBCUT SCH ×3 (09:07→17:27)
[2018-11-28] MEDS: DULoxetine DR CAP* 60 MG CAP.DR PO SCH (09:07)
[2018-11-28] MEDS ORDERED: Fluconazole 150 MG TAB PO SCH (10:00)
[2018-11-28 12:13] LABS: TSH (Thyroid Stimulating Horm) 0.31 mcIU/mL (0.34-5.60)
[2018-11-28] MEDS: Famotidine TAB* 20 MG PO PRN (20:44)
--- NOTE | 2018-11-28 20:51 | PN ---
Subjective Date of Service: 11/28/18 Interval History: continues to c/o SOB with exertion, requiring 6 liters NC for maintain o2 sats above 92% while walking and 3.5 liters at rest. Denies chest pain. Denies abd pain n/v/d. denies fever or chills Family History: Unchanged from Admission Social History: Unchanged from Admission Past Medical History: Unchanged from Admission Objective Active Medications: Acetaminophen (Tylenol Tab*) 650 mg PO Q4H PRN PRN Reason: FEVER/PAIN Albuterol (Ventolin 2.5 Mg/3 Ml Neb.Veronica*) 2.5 mg INH Q20M PRN PRN Reason: SHORTNESS OF BREATH Albuterol (Ventolin 2.5 Mg/3 Ml Neb.Veronica*) 2.5 mg INH [id number] AWAKE PRN PRN Reason: sob/wheezing Atorvastatin Calcium (Lipitor*) 40 mg PO QAM [facility] Last Admin: 11/28/18 09:05 Dose: 40 mg Bumetanide (Bumex Tab*) 1 mg PO QAM [facility] Last Admin: 11/28/18 09:05 Dose: 1 mg Bumetanide (Bumex Tab*) 1 mg PO ONCE ONE Stop: 11/29/18 18:58 Buspirone HCl (Buspar Tab*) 10 mg PO BID [facility] Last Admin: 11/28/18 20:37 Dose: 10 mg Dextrose (D50w Syringe 50 Ml*) 12.5 gm IV PUSH .FOR FS < 60 - SS PRN PRN Reason: FS < 60 Duloxetine HCl (Cymbalta Cap*) 60 mg PO DAILY [facility] Last Admin: 11/28/18 09:07 Dose: 60 mg Enoxaparin Sodium (Lovenox(*)) 40 mg SUBCUT 0900 [facility] Last Admin: 11/28/18 09:03 Dose: 40 mg Famotidine (Pepcid Tab*) 20 mg PO BID PRN PRN Reason: HEARTBURN Levofloxacin/Dextrose (Levaquin 750 Mg Ivpremix(*)) 750 mg in 150 mls @ 100 mls /hr IVPB Q24H [facility] Insulin Human Lispro (Humalog*) 0 units SUBCUT [facility]; Protocol Last Admin: 11/28/18 17:27 Dose: 3 unit Mometasone Furoate/Formoterol Fumar (Dulera 200/5 Mdi*) 2 puff INH BID [facility] Last Admin: 11/28/18 20:07 Dose: 2 puff Multivitamins/Minerals (Theragran/Minerals Tab*) 1 tab PO DAILY [facility] Last Admin: 11/28/18 09:06 Dose: 1 tab Nebivolol (Bystolic Tab (Nf)) 2.5 mg PO DAILY [facility] Last Admin: 11/28/18 09:05 Dose: 2.5 mg Oxycodone HCl (Roxycodone Tab*) 10 mg PO Q4HR PRN PRN Reason: PAIN Last Admin: 11/28/18 20:37 Dose: 10 mg Prednisone (Deltasone Tab*) 40 mg PO DAILY [facility] Last Admin: 11/28/18 09:06 Dose: 40 mg Sertraline HCl (Zoloft*) 150 mg PO QAM [facility] Last Admin: 11/28/18 09:05 Dose: 150 mg Testosterone Cypionate (Testosterone Cypionate (Nf)) 200 mg IM Q14D [facility] Vital Signs - 8 hr 11/28/18 11/28/18 11/28/18 15:25 15:26 15:31 Temperature 96.7 F Pulse Rate 71 Respiratory 20 20 18 Rate Blood Pressure 120/56 (mmHg) O2 Sat by Pulse 96 Oximetry 11/28/18 11/28/18 11/28/18 19:51 20:10 20:37 Temperature 97.2 F Pulse Rate 78 87 Respiratory 21 16 20 Rate Blood Pressure 128/52 (mmHg) O2 Sat by Pulse 93 90 Oximetry Oxygen Devices in Use Now: None, OxyMask Appearance: appears comfortable, mild respiratory distress at rest Eyes: No Scleral Icterus Ears/Nose/Mouth/Throat: Clear Oropharnyx, Mucous Membranes Moist Neck: NL Appearance and Movements; NL JVP, Trachea Midline Respiratory: Symmetrical Chest Expansion and Respiratory Effort, - - diminished t/o bilat Cardiovascular: NL Sounds; No Murmurs; No JVD Abdominal: NL Sounds; No Tenderness; No Distention Extremities: No Clubbing, Cyanosis, - - + 1 pitting to lower ext Skin: No Rash or Ulcers Neurological: Alert and Oriented x 3 Nutrition: Taking PO's Result Diagrams: 11/28/18 07:31 11/28/18 07:31 Assess/Plan/Problems-Billing Assessment: Mr. Fajardo is a 58 y.o male with CAD, COPD, hx of DVT not on anticoagulation, who presented to the ER with shortness of breath and hypoxia found to have pneumonia - Patient Problems (1) Sepsis Current Visit: Yes Status: Acute Comment: suspect this is related to pneumonia - continue levaquin as ordered -blood cultures pending (2) Acute respiratory failure with hypoxia Current Visit: Yes Status: Acute Code(s): J96.01 - ACUTE RESPIRATORY FAILURE WITH HYPOXIA SNOMED Code(s): 39689590 Comment: suspect this is r/t copd exacerbation complicated by pneumonia - continue levaquin as ordered - prednisone 40 mg po daily with taper - nebulizers as needed for shortness of breath (3) Pneumonia Current Visit: Yes Status: Acute Code(s): J18.9 - PNEUMONIA, UNSPECIFIED ORGANISM SNOMED Code(s): 113731667 Comment: continue levaquin -prednisone -o2 as needed for maintain o2 sats above 90 % -blood cultures pending (4) COPD (chronic obstructive pulmonary disease) Current Visit: No Status: Acute Code(s): J44.9 - CHRONIC OBSTRUCTIVE PULMONARY DISEASE, UNSPECIFIED SNOMED Code(s): 67396548 Comment: acute exacerbation with underlying pneumonia - will continue levaquin and nebulizers and dulera - prednisone (5) Diabetes Current Visit: No Status: Acute Code(s): E11.9 - TYPE 2 DIABETES MELLITUS WITHOUT COMPLICATIONS SNOMED Code(s): 74831569 Comment: Reportedly diet controlled, but HgbA1c 8.1% Recommend adding Metformin at discharge with close follow up with PCP (6) H/O deep venous thrombosis Current Visit: No Status: Acute Code(s): Z86.718 - PERSONAL HISTORY OF OTHER VENOUS THROMBOSIS AND EMBOLISM SNOMED Code(s): 535852633 Comment: 2 prior spontaneous DVTs No jail anticoagulation - Lovenox for DVT prop (7) HLD (hyperlipidemia) Current Visit: No Status: Acute Code(s): E78.5 - HYPERLIPIDEMIA, UNSPECIFIED SNOMED Code(s): 25330168 Comment: continue lipitor (8) HTN (hypertension) Current Visit: No Status: Acute Code(s): I10 - ESSENTIAL (PRIMARY) HYPERTENSION SNOMED Code(s): 11627718 Comment: stable Cont home Bumex (9) GUANACO (obstructive sleep apnea) Current Visit: No Status: Acute Code(s): G47.33 - OBSTRUCTIVE SLEEP APNEA ( ADULT) (PEDIATRIC) SNOMED Code(s): 50053925 Comment: diego aviles (10) DVT prophylaxis Current Visit: No Status: Acute Code(s): CNR1318 - SNOMED Code(s): 235926444 Comment: stephanie (11) Full code status Current Visit: No Status: Acute Code(s): Z78.9 - OTHER SPECIFIED HEALTH STATUS SNOMED Code(s): 321784115 Status and Disposition: discharge home when medically stable
[2018-11-28] MEDS: Levofloxacin 750 MG IVPREMIX(* 750 MG/150 ML BAG IVPB SCH (23:00)
[2018-11-29] MEDS: Famotidine TAB* 20 MG PO PRN (07:42)
[2018-11-29] MEDS: Sertraline* 50 MG TAB PO SCH (07:42)
[2018-11-29] MEDS: oxyCODONE TAB* 5 MG TAB PO PRN ×3 (07:42→19:44)
[2018-11-29] MEDS: busPIRone TAB* 5 MG PO SCH ×2 (07:42→21:06)
[2018-11-29] MEDS: CMCS: Nebivolol TAB (NF) 2.5 MG TAB PO SCH (07:43)
[2018-11-29] MEDS: Bumetanide TAB* 1 MG PO SCH (07:43)
[2018-11-29] MEDS: DULoxetine DR CAP* 60 MG CAP.DR PO SCH (07:43)
[2018-11-29] MEDS: Atorvastatin* 40 MG TAB PO SCH (07:43)
[2018-11-29] MEDS: Enoxaparin(*) 40 MG/0.4 ML SYR SUBCUT SCH (07:43)
[2018-11-29] MEDS: predniSONE TAB* 20 MG PO SCH (07:43)
[2018-11-29] MEDS: Multivitamins/Minerals TAB PO SCH (07:43)
[2018-11-29] MEDS: Mometasone/Formoter 200/5 MDI INH SCH ×2 (08:38→19:52)
[2018-11-29] MEDS: Insulin LISPRO* 1 UNITS UNIT SUBCUT SCH ×3 (08:50→17:43)
[2018-11-29] MEDS ORDERED: Testosterone Cypionate (NF) 200 MG/ML VIAL IM SCH (09:00)
--- NOTE | 2018-11-29 17:41 | PN ---
Subjective Date of Service: 11/29/18 Interval History: Continues to have shortness of breath with exertion, able to decrease walking o2 requirement to 4 liters today. Patient is able to maintain o2 sats at rest on 3 liters. walking o2 saturation decreased to 85% today on 2 liters - increased to 3 liters to maintain o2 sats. denies any fever or chills, denies chest pain or shortness of breath. Denies abd pain n/v/d. Family History: Unchanged from Admission Social History: Unchanged from Admission Past Medical History: Unchanged from Admission Objective Active Medications: Acetaminophen (Tylenol Tab*) 650 mg PO Q4H PRN PRN Reason: FEVER/PAIN Albuterol (Ventolin 2.5 Mg/3 Ml Neb.Veronica*) 2.5 mg INH Q20M PRN PRN Reason: SHORTNESS OF BREATH Albuterol (Ventolin 2.5 Mg/3 Ml Neb.Veronica*) 2.5 mg INH [id number] AWAKE PRN PRN Reason: sob/wheezing Atorvastatin Calcium (Lipitor*) 40 mg PO QAM [facility] Last Admin: 11/29/18 07:43 Dose: 40 mg Bumetanide (Bumex Tab*) 1 mg PO QAM [facility] Last Admin: 11/29/18 07:43 Dose: 1 mg Bumetanide (Bumex Tab*) 1 mg PO ONCE ONE Stop: 11/29/18 18:58 Last Admin: 11/29/18 16:58 Dose: Not Given Buspirone HCl (Buspar Tab*) 10 mg PO BID [facility] Last Admin: 11/29/18 07:42 Dose: 10 mg Dextrose (D50w Syringe 50 Ml*) 12.5 gm IV PUSH .FOR FS < 60 - SS PRN PRN Reason: FS < 60 Duloxetine HCl (Cymbalta Cap*) 60 mg PO DAILY [facility] Last Admin: 11/29/18 07:43 Dose: 60 mg Enoxaparin Sodium (Lovenox(*)) 40 mg SUBCUT 0900 [facility] Last Admin: 11/29/18 07:43 Dose: 40 mg Famotidine (Pepcid Tab*) 20 mg PO BID PRN PRN Reason: HEARTBURN Last Admin: 11/29/18 07:42 Dose: 20 mg Guaifenesin (Mucinex*) 600 mg PO BID [facility] Levofloxacin/Dextrose (Levaquin 750 Mg Ivpremix(*)) 750 mg in 150 mls @ 100 mls /hr IVPB Q24H [facility] Last Admin: 11/28/18 23:00 Dose: 100 mls/hr Insulin Human Lispro (Humalog*) 0 units SUBCUT AC [facility]; Protocol Last Admin: 11/29/18 13:11 Dose: 15 unit Mometasone Furoate/Formoterol Fumar (Dulera 200/5 Mdi*) 2 puff INH BID [facility] Last Admin: 11/29/18 08:38 Dose: 2 puff Multivitamins/Minerals (Theragran/Minerals Tab*) 1 tab PO DAILY [facility] Last Admin: 11/29/18 07:43 Dose: 1 tab Nebivolol (Bystolic Tab (Nf)) 2.5 mg PO DAILY [facility] Last Admin: 11/29/18 07:43 Dose: 2.5 mg Oxycodone HCl (Roxycodone Tab*) 10 mg PO Q4HR PRN PRN Reason: PAIN Last Admin: 11/29/18 12:19 Dose: 10 mg Prednisone (Deltasone Tab*) 40 mg PO DAILY [facility] Last Admin: 11/29/18 07:43 Dose: 40 mg Sertraline HCl (Zoloft*) 150 mg PO QAM [facility] Last Admin: 11/29/18 07:42 Dose: 150 mg Testosterone Cypionate (Testosterone Cypionate (Nf)) 200 mg IM Q14D [facility] Last Admin: 11/29/18 07:48 Dose: Not Given Vital Signs - 8 hr 11/29/18 11/29/18 11/29/18 12:19 12:20 12:41 Temperature Pulse Rate 70 Respiratory 18 18 18 Rate Blood Pressure (mmHg) O2 Sat by Pulse 96 Oximetry 11/29/18 11/29/18 11/29/18 15:24 16:08 16:42 Temperature 97.2 F Pulse Rate 79 Respiratory 24 16 Rate Blood Pressure 177/65 128/52 (mmHg) O2 Sat by Pulse 95 Oximetry Oxygen Devices in Use Now: None, OxyMask Appearance: appears comfortable sitting in the chair no acute distress Eyes: No Scleral Icterus Ears/Nose/Mouth/Throat: Clear Oropharnyx, Mucous Membranes Moist Neck: NL Appearance and Movements; NL JVP, Trachea Midline Respiratory: Symmetrical Chest Expansion and Respiratory Effort, - - diminished breath sounds bilat bases Cardiovascular: NL Sounds; No Murmurs; No JVD Abdominal: NL Sounds; No Tenderness; No Distention Extremities: No Clubbing, Cyanosis, - - mild lower ext edema +1 pitting bilat feet and lower legs Skin: No Rash or Ulcers Neurological: Alert and Oriented x 3 Nutrition: Taking PO's Result Diagrams: 11/28/18 07:31 11/28/18 07:31 Microbiology and Other Data: Microbiology 11/28/18 00:32 Urine Culture - Final Urine No Growth (<1,000 CFU/mL) 11/27/18 23:10 Aerobic Blood Culture - Preliminary Blood Venous No Growth Day 1 Anaerobic Blood Culture - Preliminary No Growth Day 1 11/27/18 23:09 Aerobic Blood Culture - Preliminary Blood Venous No Growth Day 1 Anaerobic Blood Culture - Preliminary No Growth Day 1 Assess/Plan/Problems-Billing Assessment: Mr. Fajardo is a 58 y.o male with CAD, COPD, hx of DVT not on anticoagulation, who presented to the ER with shortness of breath and hypoxia found to have pneumonia - Patient Problems (1) Sepsis Current Visit: Yes Status: Acute Comment: suspect this is related to pneumonia - continue levaquin as ordered -blood cultures no growth x 1 day (2) Acute respiratory failure with hypoxia Current Visit: Yes Status: Acute Code(s): J96.01 - ACUTE RESPIRATORY FAILURE WITH HYPOXIA SNOMED Code(s): 58185509 Comment: suspect this is r/t copd exacerbation complicated by pneumonia - continue levaquin as ordered - prednisone 40 mg po daily with taper at discharge - nebulizers as needed for shortness of breath - will add mucinex (3) Pneumonia Current Visit: Yes Status: Acute Code(s): J18.9 - PNEUMONIA, UNSPECIFIED ORGANISM SNOMED Code(s): 795023489 Comment: continue levaquin -prednisone -titrate o2 as needed for maintain o2 sats above 90 % -blood cultures no growth x 1 day (4) COPD (chronic obstructive pulmonary disease) Current Visit: No Status: Acute Code(s): J44.9 - CHRONIC OBSTRUCTIVE PULMONARY DISEASE, UNSPECIFIED SNOMED Code(s): 38311153 Comment: acute exacerbation with underlying pneumonia - will continue levaquin and nebulizers and dulera - prednisone 40 mg po daily and then taper at discharge (5) Diabetes Current Visit: No Status: Acute Code(s): E11.9 - TYPE 2 DIABETES MELLITUS WITHOUT COMPLICATIONS SNOMED Code(s): 94335140 Comment: a1c- 8.4 % - will continue lispro ss - resume home medications at discharge (6) H/O deep venous thrombosis Current Visit: No Status: Acute Code(s): Z86.718 - PERSONAL HISTORY OF OTHER VENOUS THROMBOSIS AND EMBOLISM SNOMED Code(s): 249155919 Comment: 2 prior spontaneous DVTs No long term care pharmacist anticoagulation - Lovenox for DVT prop (7) HLD (hyperlipidemia) Current Visit: No Status: Acute Code(s): E78.5 - HYPERLIPIDEMIA, UNSPECIFIED SNOMED Code(s): 23063446 Comment: continue lipitor (8) HTN (hypertension) Current Visit: No Status: Acute Code(s): I10 - ESSENTIAL (PRIMARY) HYPERTENSION SNOMED Code(s): 83477681 Comment: stable Cont home Bumex (9) GUANACO (obstructive sleep apnea) Current Visit: No Status: Acute Code(s): G47.33 - OBSTRUCTIVE SLEEP APNEA ( ADULT) (PEDIATRIC) SNOMED Code(s): 80074564 Comment: conitnue bipap (10) DVT prophylaxis Current Visit: No Status: Acute Code(s): XWF1036 - SNOMED Code(s): 984529923 Comment: lovenox (11) Full code status Current Visit: No Status: Acute Code(s): Z78.9 - OTHER SPECIFIED HEALTH STATUS SNOMED Code(s): 119128002 Status and Disposition: discharge home when medically stable
[2018-11-29] MEDS ORDERED: Bumetanide TAB* 1 MG PO ONE (18:57)
[2018-11-29] MEDS: guaiFENesin ER TAB 600 MG PO SCH (21:06)
[2018-11-29] MEDS: Levofloxacin 750 MG IVPREMIX(* 750 MG/150 ML BAG IVPB SCH (23:05)
[2018-11-30] MEDS: Insulin LISPRO* 1 UNITS UNIT SUBCUT SCH ×3 (08:34→17:35)
[2018-11-30] MEDS: Mometasone/Formoter 200/5 MDI INH SCH ×2 (08:52→20:17)
[2018-11-30] MEDS: Bumetanide TAB* 1 MG PO SCH ×2 (09:39→15:13)
[2018-11-30] MEDS: Famotidine TAB* 20 MG PO PRN (09:39)
[2018-11-30] MEDS: busPIRone TAB* 5 MG PO SCH ×2 (09:39→20:41)
[2018-11-30] MEDS: predniSONE TAB* 20 MG PO SCH (09:39)
[2018-11-30] MEDS: Enoxaparin(*) 40 MG/0.4 ML SYR SUBCUT SCH (09:40)
[2018-11-30] MEDS: DULoxetine DR CAP* 60 MG CAP.DR PO SCH (09:40)
[2018-11-30] MEDS: guaiFENesin ER TAB 600 MG PO SCH ×2 (09:40→20:41)
[2018-11-30] MEDS: Multivitamins/Minerals TAB PO SCH (09:40)
[2018-11-30] MEDS: CMCS: Nebivolol TAB (NF) 2.5 MG TAB PO SCH (09:40)
[2018-11-30] MEDS: Sertraline* 50 MG TAB PO SCH (09:40)
[2018-11-30] MEDS: Atorvastatin* 40 MG TAB PO SCH (09:40)
[2018-11-30] MEDS: oxyCODONE TAB* 5 MG TAB PO PRN ×2 (12:23→20:40)
--- NOTE | 2018-11-30 15:18 | PN ---
Subjective Date of Service: 11/30/18 Interval History: Patient is feeling better today, but feels persistently poor and desaturated quickly when oxygen was removed accidentally during the night. Patient states his LE edema started after his LE DVT and is usually worse in the Left than the right. Patient denies F/C, N/V, abdominal pain, diarrhea, CP, palpitations, dizziness. Family History: Unchanged from Admission Social History: Unchanged from Admission Past Medical History: Unchanged from Admission Objective Active Medications: Acetaminophen (Tylenol Tab*) 650 mg PO Q4H PRN PRN Reason: FEVER/PAIN Albuterol (Ventolin 2.5 Mg/3 Ml Neb.Veronica*) 2.5 mg INH Q20M PRN PRN Reason: SHORTNESS OF BREATH Albuterol (Ventolin 2.5 Mg/3 Ml Neb.Veronica*) 2.5 mg INH [id number] AWAKE PRN PRN Reason: sob/wheezing Atorvastatin Calcium (Lipitor*) 40 mg PO QAM [facility] Last Admin: 11/30/18 09:40 Dose: 40 mg Bumetanide (Bumex Tab*) 1 mg PO 0900,1500 [facility] Buspirone HCl (Buspar Tab*) 10 mg PO BID [facility] Last Admin: 11/30/18 09:39 Dose: 10 mg Dextrose (D50w Syringe 50 Ml*) 12.5 gm IV PUSH .FOR FS < 60 - SS PRN PRN Reason: FS < 60 Duloxetine HCl (Cymbalta Cap*) 60 mg PO DAILY [facility] Last Admin: 11/30/18 09:40 Dose: 60 mg Enoxaparin Sodium (Lovenox(*)) 40 mg SUBCUT 0900 [facility] Last Admin: 11/30/18 09:40 Dose: 40 mg Famotidine (Pepcid Tab*) 20 mg PO BID PRN PRN Reason: HEARTBURN Last Admin: 11/30/18 09:39 Dose: 20 mg Guaifenesin (Mucinex*) 600 mg PO BID [facility] Last Admin: 11/30/18 09:40 Dose: 600 mg Levofloxacin/Dextrose (Levaquin 750 Mg Ivpremix(*)) 750 mg in 150 mls @ 100 mls /hr IVPB Q24H [facility] Last Admin: 11/29/18 23:05 Dose: 100 mls/hr Insulin Human Lispro (Humalog*) 0 units SUBCUT AC [facility]; Protocol Last Admin: 11/30/18 12:49 Dose: 6 unit Mometasone Furoate/Formoterol Fumar (Dulera 200/5 Mdi*) 2 puff INH BID [facility] Last Admin: 11/30/18 08:52 Dose: 2 puff Multivitamins/Minerals (Theragran/Minerals Tab*) 1 tab PO DAILY [facility] Last Admin: 11/30/18 09:40 Dose: 1 tab Nebivolol (Bystolic Tab (Nf)) 2.5 mg PO DAILY [facility] Last Admin: 11/30/18 09:40 Dose: 2.5 mg Oxycodone HCl (Roxycodone Tab*) 10 mg PO Q4HR PRN PRN Reason: PAIN Last Admin: 11/30/18 12:23 Dose: 10 mg Prednisone (Deltasone Tab*) 40 mg PO DAILY [facility] Last Admin: 11/30/18 09:39 Dose: 40 mg Sertraline HCl (Zoloft*) 150 mg PO QAM [facility] Last Admin: 11/30/18 09:40 Dose: 150 mg Testosterone Cypionate (Testosterone Cypionate (Nf)) 200 mg IM Q14D [facility] Last Admin: 11/29/18 07:48 Dose: Not Given Vital Signs - 8 hr 11/30/18 11/30/18 11/30/18 07:36 08:00 08:54 Temperature 97.6 F Pulse Rate 65 65 Respiratory 20 20 Rate Blood Pressure 115/60 (mmHg) O2 Sat by Pulse 95 95 Oximetry 11/30/18 11/30/18 11:58 12:23 Temperature 97.9 F Pulse Rate 75 Respiratory 18 20 Rate Blood Pressure 141/61 (mmHg) O2 Sat by Pulse 99 Oximetry Oxygen Devices in Use Now: Nasal Cannula Appearance: Patient is a 58yo male who appears older than stated age and is sitting in the bed in [facility]. Eyes: No Scleral Icterus, PERRLA Ears/Nose/Mouth/Throat: NL Teeth, Lips, Gums, Clear Oropharnyx, Mucous Membranes Moist Neck: NL Appearance and Movements; NL JVP, Trachea Midline Respiratory: Symmetrical Chest Expansion and Respiratory Effort, - - Severely diminished throughout. Cardiovascular: NL Sounds; No Murmurs; No JVD, RRR, - - 3+ edema in LLE 1+ in RLE. Abdominal: NL Sounds; No Tenderness; No Distention, No Hepatosplenomegaly Lymphatic: No Cervical Adenopathy Extremities: No Clubbing, Cyanosis Skin: No Rash or Ulcers, No Nodules or Sclerosis Neurological: Alert and Oriented x 3, NL Sensation, NL Muscle Strength and Tone , - - CN II-XII intact. Result Diagrams: 11/28/18 07:31 11/28/18 07:31 Microbiology and Other Data: Microbiology 11/28/18 00:32 Urine Culture - Final Urine No Growth (<1,000 CFU/mL) 11/27/18 23:10 Aerobic Blood Culture - Preliminary Blood Venous No Growth Day 1 Anaerobic Blood Culture - Preliminary No Growth Day 1 11/27/18 23:09 Aerobic Blood Culture - Preliminary Blood Venous No Growth Day 1 Anaerobic Blood Culture - Preliminary No Growth Day 1 Assess/Plan/Problems-Billing Assessment: Mr. Fajardo is a 58 y.o male with CAD, COPD, hx of DVT not on anticoagulation, who presented to the ER with shortness of breath and hypoxia found to have pneumonia and likely COPD exacerbation. - Patient Problems (1) Acute respiratory failure with hypoxia Current Visit: Yes Status: Acute Code(s): J96.01 - ACUTE RESPIRATORY FAILURE WITH HYPOXIA SNOMED Code(s): 28361037 Comment: - Related to Pneumonia, complicated by COPD exacerbation. - Continue levaquin as ordered - prednisone 40 mg po daily, taper down to home dose of 8mg daily. - nebulizers as needed for shortness of breath - Mucinex helping with chest congestion and cough. (2) Pneumonia Current Visit: Yes Status: Acute Code(s): J18.9 - PNEUMONIA, UNSPECIFIED ORGANISM SNOMED Code(s): 210511418 Comment: - Continue levaquin - titrate o2 as needed for maintain o2 sats above 90 % - blood cultures no growth to date. (3) Fluid overload Current Visit: Yes Status: Acute Code(s): E87.70 - FLUID OVERLOAD, UNSPECIFIED SNOMED Code(s): 62962671 Comment: - Patient endorses chronic history of LE edema and states he has been told he has HF, but cannot specify what type - Double Bumex in house and monitor strict I/O and daily weight. - Echo pending. (4) Sepsis Current Visit: Yes Status: Acute Comment: - Related to pneumonia - continue levaquin as ordered - blood cultures no growth to date (5) COPD (chronic obstructive pulmonary disease) Current Visit: No Status: Acute Code(s): J44.9 - CHRONIC OBSTRUCTIVE PULMONARY DISEASE, UNSPECIFIED SNOMED Code(s): 22530046 Comment: - acute exacerbation with underlying pneumonia - will continue levaquin and nebulizers and dulera - prednisone 40 mg po daily and then taper to 8mg (6) DVT prophylaxis Current Visit: No Status: Acute Code(s): GJT5387 - SNOMED Code(s): 589762474 Comment: - lovenox SubQ (7) Diabetes Current Visit: No Status: Acute Code(s): E11.9 - TYPE 2 DIABETES MELLITUS WITHOUT COMPLICATIONS SNOMED Code(s): 24573933 Comment: - A1c- 8.4 % - will continue lispro ss - resume home medications at discharge - May need additional oral meds, would benefit from steroid sparing agent. (8) H/O deep venous thrombosis Current Visit: No Status: Acute Code(s): Z86.718 - PERSONAL HISTORY OF OTHER VENOUS THROMBOSIS AND EMBOLISM SNOMED Code(s): 674204156 Comment: - 2 prior spontaneous DVTs - No correction anticoagulation - Lovenox for DVT prop (9) HLD (hyperlipidemia) Current Visit: No Status: Acute Code(s): E78.5 - HYPERLIPIDEMIA, UNSPECIFIED SNOMED Code(s): 86931668 Comment: - Continue lipitor (10) HTN (hypertension) Current Visit: No Status: Acute Code(s): I10 - ESSENTIAL (PRIMARY) HYPERTENSION SNOMED Code(s): 89215415 Comment: - Normotensive - Continue Bumex. (11) Polymyalgia rheumatica Current Visit: Yes Status: Acute Code(s): M35.3 - POLYMYALGIA RHEUMATICA SNOMED Code(s): 48918548 Comment: - Per Patient history - Diagnosed a year ago, difficulty tapring steroids - Might benefit from Rheumatology referral and steroid sparing agent. (12) GUANACO (obstructive sleep apnea) Current Visit: No Status: Acute Code(s): G47.33 - OBSTRUCTIVE SLEEP APNEA ( ADULT) (PEDIATRIC) SNOMED Code(s): 27932668 Comment: - Continue BiPAP (13) Full code status Current Visit: No Status: Acute Code(s): Z78.9 - OTHER SPECIFIED HEALTH STATUS SNOMED Code(s): 484350756 Status and Disposition: discharge home when medically stable
--- NOTE | 2018-11-30 16:42 | ECHO ---
Patient: DALILA ALONSO [facility] Rec#: [id number] : 1960 Date: 11/30/2018 Age: 58y Height: 157 cm / 61.8 in Weight: 121 kg / 266.7 lbs Sex: M BSA: 2.16 Room#: 421 Admit Date#: 11/28/2018 Type: Inpatient Referring: CARLIKATERINAFLOR Reading: Jasen Abbott MD [employer] Solution Architect: Norma Ortiz RDCS CC: Aaron William MD CC: Ari Hoskins, DO Transthoracic Echocardiogram Indication: Shortness of breath BP: 136/67 HR: 70 Rhythm: NSR Findings History: Obesity, CAD, COPD, DVT. Technical Comments: The study quality is fair. Completed at 1615. Left Ventricle: The left ventricular chamber size is normal. Moderate concentric left ventricular hypertrophy is observed. There is normal left ventricular systolic function. The estimated ejection fraction is 55-60%. Abnormal left ventricular diastolic function is observed. Abnormal left ventricular diastolic filling is observed, consistent with impaired relaxation. Left Atrium: The left atrium is mildly dilated. Right Ventricle: Moderator Band present. The right ventricle is mildly dilated. The right ventricle wall thickness is mildly increased. The right ventricular global systolic function is low normal. Right Atrium: The right atrium is mildly dilated. Aortic Valve: The aortic valve is trileaflet. There is no evidence of aortic valve thickening. There is no evidence of aortic regurgitation. There is no evidence of aortic stenosis. Mitral Valve: The mitral valve leaflets are mildly thickened. There is a trace of mitral regurgitation. There is no evidence of mitral stenosis. Tricuspid Valve: The tricuspid valve leaflets are normal. There is trace to mild tricuspid regurgitation. The right ventricular systolic pressure is estimated at 29 mmHg. There is evidence that pulmonary hypertension may be underestimated. There is no tricuspid stenosis. Pulmonic Valve: The pulmonic valve appears normal. There is a trace pulmonic regurgitation. There is no pulmonic stenosis. Pericardium: There is no significant pericardial effusion. A pericardial fat pad is visualized. Aorta: There is no dilatation of the ascending aorta. There is no dilatation of the aortic arch. The aortic root is normal in size. Pulmonary Artery: The main pulmonary artery appears normal. Venous: The inferior vena cava is dilated. There is a greater than 50% respiratory change in the inferior vena cava dimension. Summary: There was not any prior study for comparison. Conclusions Moderate concentric left ventricular hypertrophy is observed. The estimated ejection fraction is 55-60%. Abnormal left ventricular diastolic filling is observed, consistent with impaired relaxation. The left atrium is mildly dilated. The right ventricle is mildly dilated. The right ventricle wall thickness is mildly increased. The right ventricular global systolic function is low normal. The right atrium is mildly dilated. There is a trace of mitral regurgitation. There is trace to mild tricuspid regurgitation. Measurements Name Value Normal Range RVIDd (AP) 2D 3.3 cm (0.9 - 2.6) RVDdMajor (2D) 4.6 cm (2.2 - 4.4) RVAW (2D) 0.6 cm (0.2 - 0.5) RAd ISD 4CH 5.1 cm (3.4 - 4.9) RA (A4C)W 4.3 cm (2.9 - 4.6) IVSd (2D) 1.4 cm (0.6 - 1) LVPWd (2D) 1.4 cm (0.6 - 1) LVIDd (2D) 4.5 cm (3.6 - 5.4) LVIDs (2D) 2.8 cm - LV FS (2D) 38 % (25 - 45) Aortic Annulus 2 cm (1.4 - 2.6) Ao root diameter (2D) 2.6 cm (2.1 - 3.5) Ascending Ao 2.9 cm (2.1 - 3.4) Aortic arch 2.7 cm (1.8 - 3.4) LA dimension (AP) 2D 4.5 cm (2.3 - 3.8) LAd ISD 4CH 5.4 cm (2.9 - 5.3) LA ISD 4CH W 4.7 cm (2.5 - 4.5) Name Value Normal Range LA ESV BP (A/L) index 31 ml/m2 - Name Value Normal Range MV E-wave Vmax 1.1 m/sec - MV deceleration time 187 msec - MV A-wave Vmax 0.9 m/sec - MV E:A ratio 1.2 ratio - LV septal e' Vmax 0.06 m/sec - LV lateral e' Vmax 0.06 m/sec - LV E:e' septal ratio 18.3 ratio - LV E:e' lateral ratio 18.3 ratio - Name Value Normal Range AV Vmax 1.4 m/sec - AV VTI 31 cm - AV peak gradient 8 mmHg - AV mean gradient 4 mmHg - LVOT Vmax 0.9 m/sec - LVOT VTI 19 cm - LVOT peak gradient 3 mmHg - LVOT mean gradient 1 mmHg - [place] Vmax 0.6 m/sec - Name Value Normal Range TR Vmax 2.3 m/sec - TR peak gradient 21 mmHg - RAP 8 mmHg - RVSP 29 mmHg - IVC diameter 2.2 cm - Name Value Normal Range PV Vmax 0.7 m/sec - PV peak gradient 2 mmHg -
[2018-11-30] MEDS: Levofloxacin 750 MG IVPREMIX(* 750 MG/150 ML BAG IVPB SCH (22:42)
[2018-12-01] MEDS: oxyCODONE TAB* 5 MG TAB PO PRN ×4 (02:58→19:42)
[2018-12-01 07:26] LABS: ABS Basophils 0 10^3/ul (0-0.2); ABS Eosinophils 0.1 10^3/ul (0-0.6); ABS Lymphocytes 3.5 10^3/ul (1.0-4.8); ABS Monocytes 1.1 10^3/ul (0-0.8); ABS Neutrophils 8.9 10^3/ul (1.5-7.7); ABS Nucleated RBC 0 10^3/ul; Eosinophil % 0.9 %; Hematocrit 53 % (36-46); Hemoglobin 17.5 g/dL (14.0-18.0); Lymphocyte % 25.8 %; Mean Corpuscular HGB Conc 33 g/dL (31-36); Mean Corpuscular Hemoglobin 31 pg (27-31); Mean Corpuscular Volume 94 fL (80-94); Nucleated Red Blood Cells % 0.2; Platelet Count 185 10^3/uL (150-450); Red Blood Count 5.68 10^6 /uL (4.18-5.48); Red Cell Distribution Width 15 % (10.5-15); White Blood Count 13.6 10^3/uL (3.5-10.8)
[2018-12-01] MEDS: Insulin LISPRO* 1 UNITS UNIT SUBCUT SCH ×3 (08:02→16:54)
[2018-12-01 08:04] LABS: BUN/Creatinine Ratio 22.5 (8-20); Calcium 9.2 mg/dL (8.6-10.3); EGFR African American 105.9 (>60); EGFR Non-African American 87.5 (>60); Potassium 3.5 mmol/L (3.5-5.0)
[2018-12-01] MEDS: Multivitamins/Minerals TAB PO SCH (08:11)
[2018-12-01] MEDS: guaiFENesin ER TAB 600 MG PO SCH ×2 (08:12→19:43)
[2018-12-01] MEDS: Atorvastatin* 40 MG TAB PO SCH (08:12)
[2018-12-01] MEDS: predniSONE TAB* 20 MG PO SCH (08:12)
[2018-12-01] MEDS: CMCS: Nebivolol TAB (NF) 2.5 MG TAB PO SCH (08:12)
[2018-12-01] MEDS: busPIRone TAB* 5 MG PO SCH ×2 (08:12→19:42)
[2018-12-01] MEDS: DULoxetine DR CAP* 60 MG CAP.DR PO SCH (08:12)
[2018-12-01] MEDS: Sertraline* 50 MG TAB PO SCH (08:12)
[2018-12-01] MEDS: Enoxaparin(*) 40 MG/0.4 ML SYR SUBCUT SCH (08:12)
[2018-12-01] MEDS: Mometasone/Formoter 200/5 MDI INH SCH ×2 (09:02→19:36)
[2018-12-01] MEDS: Bumetanide TAB* 1 MG PO SCH ×2 (09:51→14:58)
--- NOTE | 2018-12-01 16:44 | PN ---
Subjective Date of Service: 12/01/18 Interval History: Mr. Fajardo is feeling much better today, but he still does not feel as his baseline. He denies SOB or cough. He has been up ambulating around the unit independently. He denies CP. Anxious to go home, but understands rationale for staying in the hospital. Patient was walking around the unit and was noted to have an empty oxygen tank. Nursing checked an O2 sat and he was 85% on RA with ambulation. Family History: Unchanged from Admission Social History: Unchanged from Admission Past Medical History: Unchanged from Admission Objective Active Medications: Acetaminophen (Tylenol Tab*) 650 mg PO Q4H PRN FEVER/PAIN Albuterol (Ventolin 2.5 Mg/3 Ml Neb.Veronica*) 2.5 mg INH Q20M PRN SHORTNESS OF BREATH Albuterol (Ventolin 2.5 Mg/3 Ml Neb.Veronica*) 2.5 mg INH [id number] AWAKE PRN sob/wheezing Atorvastatin Calcium (Lipitor*) 40 mg PO QAM [facility] Bumetanide (Bumex Tab*) 1 mg PO 0900,1500 [facility] Buspirone HCl (Buspar Tab*) 10 mg PO BID [facility] Dextrose (D50w Syringe 50 Ml*) 12.5 gm IV PUSH .FOR FS < 60 - SS PRN FS < 60 Duloxetine HCl (Cymbalta Cap*) 60 mg PO DAILY [facility] Enoxaparin Sodium (Lovenox(*)) 40 mg SUBCUT 0900 [facility] Famotidine (Pepcid Tab*) 20 mg PO BID PRN HEARTBURN Guaifenesin (Mucinex*) 600 mg PO BID [facility] Levofloxacin/Dextrose (Levaquin 750 Mg Ivpremix(*)) 750 mg in 150 mls @ 100 mls /hr IVPB Q24H [facility] Insulin Human Lispro (Humalog*) 0 units SUBCUT AC [facility]; Protocol Mometasone Furoate/Formoterol Fumar (Dulera 200/5 Mdi*) 2 puff INH BID [facility] Multivitamins/Minerals (Theragran/Minerals Tab*) 1 tab PO DAILY [facility] Nebivolol (Bystolic Tab (Nf)) 2.5 mg PO DAILY [facility] Oxycodone HCl (Roxycodone Tab*) 10 mg PO Q4HR PRN PAIN Prednisone (Deltasone Tab*) 40 mg PO DAILY [facility] Sertraline HCl (Zoloft*) 150 mg PO QAM [facility] Testosterone Cypionate (Testosterone Cypionate (Nf)) 200 mg IM Q14D [facility] Vital Signs - 8 hr 12/01/18 12/01/18 12/01/18 09:03 11:38 12:29 Temperature 97.6 F Pulse Rate 78 75 Respiratory 20 18 18 Rate Blood Pressure 130/70 (mmHg) O2 Sat by Pulse 95 94 Oximetry 12/01/18 12/01/18 14:58 15:21 Temperature 97.5 F Pulse Rate 86 Respiratory 18 18 Rate Blood Pressure 143/76 (mmHg) O2 Sat by Pulse 94 Oximetry Oxygen Devices in Use Now: Nasal Cannula - 3L Appearance: Middle-aged male sitting in bed in NAD Eyes: No Scleral Icterus Ears/Nose/Mouth/Throat: Mucous Membranes Moist Neck: NL Appearance and Movements; NL JVP, Trachea Midline Respiratory: Symmetrical Chest Expansion and Respiratory Effort, - - Diminished throughout Cardiovascular: NL Sounds; No Murmurs; No JVD, RRR Abdominal: NL Sounds; No Tenderness; No Distention Extremities: No Edema Neurological: Alert and Oriented x 3, NL Gait Lines/Tubes/Other Access: Clean, Dry and Intact Peripheral IV Nutrition: Taking PO's Result Diagrams: 12/01/18 07:10 12/01/18 07:10 Assess/Plan/Problems-Billing Assessment: Mr. Fajardo is a 58 yo M with PMH of CAD, COPD, hx of DVT not on anticoagulation; who presented to the ER with shortness of breath and hypoxia found to have pneumonia and likely COPD exacerbation. - Patient Problems (1) Pneumonia Code(s): J18.9 - PNEUMONIA, UNSPECIFIED ORGANISM Comment: - CXR on admission shows bibasilar infiltrates - Oxygen to maintain sats >90%, titrate oxygen - Blood cultures negative - Continue Levaquin (2) COPD exacerbation Code(s): J44.1 - CHRONIC OBSTRUCTIVE PULMONARY DISEASE W (ACUTE) EXACERBATION Comment: - Secondary to pneumonia - Cough and sputum production have resolved - Would benefit from outpatient f/u with Pulmonology - Continue prednisone, nebs, Dulera (3) Acute respiratory failure with hypoxia Code(s): J96.01 - ACUTE RESPIRATORY FAILURE WITH HYPOXIA Comment: - Secondary to pneumonia, complicated by COPD exacerbation - Continue prednisone (40 mg po daily, taper down to home dose of 8mg daily) (4) Fluid overload Code(s): E87.70 - FLUID OVERLOAD, UNSPECIFIED Comment: - Patient endorses chronic history of LE edema and states he has been told he has HF, but cannot specify what type - Echo shows EF 55-60%, impaired relaxation of LV, mild dilation - Daily weights, strict I&O - Continue Bumex (5) Sepsis Comment: - Resolved - Secondary to pneumonia - Plan as above (6) Diabetes Code(s): E11.9 - TYPE 2 DIABETES MELLITUS WITHOUT COMPLICATIONS Comment: - A1c 8.4 % - Continue Lispro SS (7) HTN (hypertension) Code(s): I10 - ESSENTIAL (PRIMARY) HYPERTENSION Comment: - Normotensive - Continue Bystolic (8) GUANACO (obstructive sleep apnea) Code(s): G47.33 - OBSTRUCTIVE SLEEP APNEA (ADULT) (PEDIATRIC) Comment: - Continue BiPAP (9) HLD (hyperlipidemia) Code(s): E78.5 - HYPERLIPIDEMIA, UNSPECIFIED Comment: - Continue atorvastatin (10) Polymyalgia rheumatica Code(s): M35.3 - POLYMYALGIA RHEUMATICA Comment: - Continue prednisone (baseline dose is 8mg daily) (11) DVT prophylaxis Comment: - Lovenox (12) Full code status Code(s): Z78.9 - OTHER SPECIFIED HEALTH STATUS Comment: Status and Disposition: Inpatient. Anticipate d/c home when medically stable and off oxygen. Attending: Vidhi Michaud
[2018-12-02] MEDS ORDERED: DOXYcycline IV* 100 MG in NS 0.9% 250 ML* 250 ML IVPB SCH ×2
[2018-12-02] MEDS: Levofloxacin 750 MG IVPREMIX(* 750 MG/150 ML BAG IVPB SCH ×3 (00:18→23:28)
[2018-12-02] MEDS: oxyCODONE TAB* 5 MG TAB PO PRN ×4 (02:51→20:57)
[2018-12-02] MEDS: Famotidine TAB* 20 MG PO PRN ×2 (02:52→12:45)
--- NOTE | 2018-12-02 03:16 | PN ---
Progress Note - Progress Note Date of Service: 12/02/18 Note: Cross cover: RN notified author that there was itching and some erythema around infusion site for levaquin. No systemic reaction. Unclear if IV infiltrated or this is an abx allergy. No change made to medication at this time.
[2018-12-02] MEDS: Insulin LISPRO* 1 UNITS UNIT SUBCUT SCH ×3 (07:33→17:02)
[2018-12-02] MEDS: Mometasone/Formoter 200/5 MDI INH SCH ×2 (07:46→19:53)
[2018-12-02] MEDS: Sertraline* 50 MG TAB PO SCH (09:41)
[2018-12-02] MEDS: Atorvastatin* 40 MG TAB PO SCH (09:41)
[2018-12-02] MEDS: Bumetanide TAB* 1 MG PO SCH ×2 (09:41→16:59)
[2018-12-02] MEDS: busPIRone TAB* 5 MG PO SCH ×2 (09:41→20:57)
[2018-12-02] MEDS: DULoxetine DR CAP* 60 MG CAP.DR PO SCH (09:41)
[2018-12-02] MEDS: predniSONE TAB* 20 MG PO SCH (09:41)
[2018-12-02] MEDS: Multivitamins/Minerals TAB PO SCH (09:41)
[2018-12-02] MEDS: guaiFENesin ER TAB 600 MG PO SCH ×2 (09:41→20:57)
[2018-12-02] MEDS: CMCS: Nebivolol TAB (NF) 2.5 MG TAB PO SCH (09:41)
[2018-12-02] MEDS: Enoxaparin(*) 40 MG/0.4 ML SYR SUBCUT SCH (09:53)
--- NOTE | 2018-12-02 13:13 | PN ---
Subjective Date of Service: 12/02/18 Interval History: Mr. Fajardo is not feeling well today. He reports he had an allergic reaction to the antibiotic last night and feels his chest is tighter since then. He denies any SOB or CP at this point, but did have SOB after a coughing fit. Disappointed that he was not able to pass the walk test today. Nursing did walk test with patient. He was 89-90% on RA while ambulating until he had a coughing fit, at which point he had to stop to catch his breath and dropped to 85%. Required 3L to maintain sats thereafter. Family History: Unchanged from Admission Social History: Unchanged from Admission Past Medical History: Unchanged from Admission Objective Active Medications: Acetaminophen (Tylenol Tab*) 650 mg PO Q4H PRN FEVER/PAIN Albuterol (Ventolin 2.5 Mg/3 Ml Neb.Veronica*) 2.5 mg INH Q20M PRN SHORTNESS OF BREATH Albuterol (Ventolin 2.5 Mg/3 Ml Neb.Veronica*) 2.5 mg INH [id number] AWAKE PRN sob/wheezing Atorvastatin Calcium (Lipitor*) 40 mg PO QAM [facility] Bumetanide (Bumex Tab*) 1 mg PO 0900,1500 [facility] Buspirone HCl (Buspar Tab*) 10 mg PO BID [facility] Dextrose (D50w Syringe 50 Ml*) 12.5 gm IV PUSH .FOR FS < 60 - SS PRN FS < 60 Duloxetine HCl (Cymbalta Cap*) 60 mg PO DAILY [facility] Enoxaparin Sodium (Lovenox(*)) 40 mg SUBCUT 0900 [facility] Famotidine (Pepcid Tab*) 20 mg PO BID PRN HEARTBURN Guaifenesin (Mucinex*) 600 mg PO BID [facility] Levofloxacin/Dextrose (Levaquin 750 Mg Ivpremix(*)) 750 mg in 150 mls @ 100 mls /hr IVPB Q24H [facility] Insulin Human Lispro (Humalog*) 0 units SUBCUT AC [facility]; Protocol Mometasone Furoate/Formoterol Fumar (Dulera 200/5 Mdi*) 2 puff INH BID [facility] Multivitamins/Minerals (Theragran/Minerals Tab*) 1 tab PO DAILY [facility] Nebivolol (Bystolic Tab (Nf)) 2.5 mg PO DAILY [facility] Oxycodone HCl (Roxycodone Tab*) 10 mg PO Q4HR PRN PAIN Prednisone (Deltasone Tab*) 40 mg PO DAILY [facility] Sertraline HCl (Zoloft*) 150 mg PO QAM [facility] Testosterone Cypionate (Testosterone Cypionate (Nf)) 200 mg IM Q14D [facility] Vital Signs - 8 hr 12/02/18 12/02/18 12/02/18 05:37 07:33 07:47 Pulse Rate 75 Respiratory 18 18 18 Rate O2 Sat by Pulse 94 Oximetry 12/02/18 12/02/18 09:52 12:45 Pulse Rate Respiratory 18 18 Rate O2 Sat by Pulse Oximetry Oxygen Devices in Use Now: Nasal Cannula - 2L Appearance: Middle-aged male sitting in chair in NAD Eyes: No Scleral Icterus Ears/Nose/Mouth/Throat: Mucous Membranes Moist Neck: NL Appearance and Movements; NL JVP, Trachea Midline Respiratory: Symmetrical Chest Expansion and Respiratory Effort, - - Diminished throughout Cardiovascular: NL Sounds; No Murmurs; No JVD, RRR Abdominal: NL Sounds; No Tenderness; No Distention Extremities: No Clubbing, Cyanosis Neurological: Alert and Oriented x 3 Lines/Tubes/Other Access: Clean, Dry and Intact Peripheral IV Nutrition: Taking PO's Result Diagrams: 12/01/18 07:10 12/01/18 07:10 Assess/Plan/Problems-Billing Assessment: Mr. Fajardo is a 58 yo M with PMH of CAD, COPD, hx of DVT not on anticoagulation; who presented to the ER with shortness of breath and hypoxia found to have pneumonia and likely COPD exacerbation. - Patient Problems (1) Pneumonia Code(s): J18.9 - PNEUMONIA, UNSPECIFIED ORGANISM Comment: - CXR on admission shows bibasilar infiltrates - Oxygen to maintain sats >90%, titrate oxygen - Blood cultures negative - Continue Levaquin; his symptoms last night are not particularly convincing for a true drug allergy because the erythema was limited to one arm and there was no typical drug rash or respiratory symptoms; he is also still on prednisone which would help to blunt a true allergic reaction; I do not want to unnecessarily add Levaquin as an allergy (as he already has other abx allergies limiting treatment) and if there is a true allergy, I would rather him experience that while in the hospital (2) COPD exacerbation Code(s): J44.1 - CHRONIC OBSTRUCTIVE PULMONARY DISEASE W (ACUTE) EXACERBATION Comment: - Secondary to pneumonia - Cough and sputum production have resolved - Would benefit from outpatient f/u with Pulmonology - Continue prednisone, nebs, Dulera (3) Acute respiratory failure with hypoxia Code(s): J96.01 - ACUTE RESPIRATORY FAILURE WITH HYPOXIA Comment: - Secondary to pneumonia, complicated by COPD exacerbation - Continue prednisone (40 mg po daily, taper down to home dose of 8mg daily) (4) Fluid overload Code(s): E87.70 - FLUID OVERLOAD, UNSPECIFIED Comment: - Patient endorses chronic history of LE edema and states he has been told he has HF, but cannot specify what type - Echo shows EF 55-60%, impaired relaxation of LV, mild dilation - Daily weights, strict I&O - Continue Bumex (5) Sepsis Comment: - Resolved - Secondary to pneumonia - Plan as above (6) Diabetes Code(s): E11.9 - TYPE 2 DIABETES MELLITUS WITHOUT COMPLICATIONS Comment: - A1c 8.4 % - Continue Lispro SS (7) HTN (hypertension) Code(s): I10 - ESSENTIAL (PRIMARY) HYPERTENSION Comment: - Normotensive - Continue Bystolic (8) GUANACO (obstructive sleep apnea) Code(s): G47.33 - OBSTRUCTIVE SLEEP APNEA (ADULT) (PEDIATRIC) Comment: - Continue BiPAP (9) HLD (hyperlipidemia) Code(s): E78.5 - HYPERLIPIDEMIA, UNSPECIFIED Comment: - Continue atorvastatin (10) Polymyalgia rheumatica Code(s): M35.3 - POLYMYALGIA RHEUMATICA Comment: - Continue prednisone (baseline dose is 8mg daily) (11) DVT prophylaxis Comment: - Lovenox (12) Full code status Code(s): Z78.9 - OTHER SPECIFIED HEALTH STATUS Comment: Status and Disposition: Inpatient. Anticipate d/c home when medically stable and off oxygen, possibly tomorrow if he is able to pass a walk test. Attending: Maria Eugenia Shin
[2018-12-02] MEDS: cefTRIAXone(*) 1 GM in NS 0.9% 50 ML* 50 ML IVPB SCH (23:47)
[2018-12-03] MEDS: DOXYcycline IV* 100 MG in NS 0.9% 250 ML* 250 ML IVPB SCH ×2 (00:08→12:10)
[2018-12-03] MEDS: oxyCODONE TAB* 5 MG TAB PO PRN ×4 (05:00→20:58)
[2018-12-03] MEDS: Insulin LISPRO* 1 UNITS UNIT SUBCUT SCH ×3 (08:43→18:35)
[2018-12-03] MEDS: Mometasone/Formoter 200/5 MDI INH SCH ×2 (09:03→20:16)
[2018-12-03] MEDS: predniSONE TAB* 20 MG PO SCH (09:15)
[2018-12-03] MEDS: guaiFENesin ER TAB 600 MG PO SCH ×2 (09:15→20:58)
[2018-12-03] MEDS: DULoxetine DR CAP* 60 MG CAP.DR PO SCH (09:15)
[2018-12-03] MEDS: busPIRone TAB* 5 MG PO SCH ×2 (09:16→20:58)
[2018-12-03] MEDS: Sertraline* 50 MG TAB PO SCH (09:17)
[2018-12-03] MEDS: Bumetanide TAB* 1 MG PO SCH ×2 (09:17→15:59)
[2018-12-03] MEDS: Multivitamins/Minerals TAB PO SCH (09:18)
[2018-12-03] MEDS: Atorvastatin* 40 MG TAB PO SCH (09:18)
[2018-12-03] MEDS: CMCS: Nebivolol TAB (NF) 2.5 MG TAB PO SCH (09:31)
[2018-12-03] MEDS: Enoxaparin(*) 40 MG/0.4 ML SYR SUBCUT SCH (09:33)
--- NOTE | 2018-12-03 16:41 | PN ---
Subjective Date of Service: 12/03/18 Interval History: Mr. Fajardo is feeling much better today. He is frustrated that he remains hypoxic and is considering leaving without home oxygen. He denies CP, SOB. Still has an occasional dry cough. Ambulated with patient for walk test this morning and again this afternoon. He is still dropping to 85% on RA while ambulating. Able to maintain sats >90% on RA at rest. No concerns from nursing. Family History: Unchanged from Admission Social History: Unchanged from Admission Past Medical History: Unchanged from Admission Objective Active Medications: Acetaminophen (Tylenol Tab*) 650 mg PO Q4H PRN FEVER/PAIN Albuterol (Ventolin 2.5 Mg/3 Ml Neb.Veronica*) 2.5 mg INH Q20M PRN SHORTNESS OF BREATH Albuterol (Ventolin 2.5 Mg/3 Ml Neb.Veronica*) 2.5 mg INH [id number] AWAKE PRN sob/wheezing Atorvastatin Calcium (Lipitor*) 40 mg PO QAM [facility] Bumetanide (Bumex Tab*) 1 mg PO 0900,1500 [facility] Buspirone HCl (Buspar Tab*) 10 mg PO BID [facility] Dextrose (D50w Syringe 50 Ml*) 12.5 gm IV PUSH .FOR FS < 60 - SS PRN FS < 60 Duloxetine HCl (Cymbalta Cap*) 60 mg PO DAILY [facility] Enoxaparin Sodium (Lovenox(*)) 40 mg SUBCUT 0900 [facility] Famotidine (Pepcid Tab*) 20 mg PO BID PRN HEARTBURN Guaifenesin (Mucinex*) 600 mg PO BID [facility] Ceftriaxone Sodium 1 gm/ (Sodium Chloride) 50 mls @ 200 mls/hr IVPB Q24H [facility] Doxycycline Hyclate 100 mg/ (Sodium Chloride) 250 mls @ 250 mls/hr IVPB 0000, 1200 [facility] Insulin Human Lispro (Humalog*) 0 units SUBCUT AC [facility]; Protocol Mometasone Furoate/Formoterol Fumar (Dulera 200/5 Mdi*) 2 puff INH BID [facility] Multivitamins/Minerals (Theragran/Minerals Tab*) 1 tab PO DAILY [facility] Nebivolol (Bystolic Tab (Nf)) 2.5 mg PO DAILY [facility] Oxycodone HCl (Roxycodone Tab*) 10 mg PO Q4HR PRN PAIN Prednisone (Deltasone Tab*) 40 mg PO DAILY [facility] Sertraline HCl (Zoloft*) 150 mg PO QAM [facility] Testosterone Cypionate (Testosterone Cypionate (Nf)) 200 mg IM Q14D [facility] Vital Signs - 8 hr 12/03/18 12/03/18 12/03/18 09:00 09:04 09:30 Temperature Pulse Rate 82 Respiratory 18 18 18 Rate Blood Pressure (mmHg) O2 Sat by Pulse 96 Oximetry 12/03/18 12/03/18 12/03/18 11:06 16:18 16:27 Temperature 98.1 F 97.7 F Pulse Rate 82 91 Respiratory 16 18 22 Rate Blood Pressure 120/55 140/79 (mmHg) O2 Sat by Pulse 97 93 Oximetry Oxygen Devices in Use Now: Nasal Cannula - 2L Appearance: Middle-aged male sitting in bed in NAD Eyes: No Scleral Icterus Ears/Nose/Mouth/Throat: Mucous Membranes Moist Neck: NL Appearance and Movements; NL JVP, Trachea Midline Respiratory: Symmetrical Chest Expansion and Respiratory Effort, - - Diminished throughout Cardiovascular: NL Sounds; No Murmurs; No JVD, RRR Abdominal: NL Sounds; No Tenderness; No Distention Extremities: No Edema Neurological: Alert and Oriented x 3, NL Gait Lines/Tubes/Other Access: Clean, Dry and Intact Peripheral IV Nutrition: Taking PO's Result Diagrams: 12/01/18 07:10 12/01/18 07:10 Assess/Plan/Problems-Billing Assessment: Mr. Fajardo is a 58 yo M with PMH of CAD, COPD, hx of DVT not on anticoagulation; who presented to the ER with shortness of breath and hypoxia found to have pneumonia and likely COPD exacerbation. - Patient Problems (1) Pneumonia Code(s): J18.9 - PNEUMONIA, UNSPECIFIED ORGANISM Comment: - CXR on admission shows bibasilar infiltrates - Blood cultures negative - Refused Levaquin last night as he believes he had an allergic reaction the night prior, but it is not clear that it represented a true drug allergy - Continue ceftriaxone, doxycycline (day 6/7) (2) COPD exacerbation Code(s): J44.1 - CHRONIC OBSTRUCTIVE PULMONARY DISEASE W (ACUTE) EXACERBATION Comment: - Secondary to pneumonia - Cough and sputum production have resolved - Would benefit from outpatient f/u with Pulmonology - Continue prednisone, nebs, Dulera (3) Acute respiratory failure with hypoxia Code(s): J96.01 - ACUTE RESPIRATORY FAILURE WITH HYPOXIA Comment: - Secondary to pneumonia, complicated by COPD exacerbation - Oxygen to maintain sats >90%, titrate as tolerated; anticipate he will need to be discharged with home oxygen - Continue prednisone (40 mg po daily, taper down to home dose of 8mg daily) (4) Fluid overload Code(s): E87.70 - FLUID OVERLOAD, UNSPECIFIED Comment: - Patient endorses chronic history of LE edema and states he has been told he has HF, but cannot specify what type - Echo shows EF 55-60%, impaired relaxation of LV, mild dilation - Daily weights, strict I&O - Continue Bumex (5) Sepsis Comment: - Resolved - Secondary to pneumonia - Plan as above (6) Diabetes Code(s): E11.9 - TYPE 2 DIABETES MELLITUS WITHOUT COMPLICATIONS Comment: - A1c 8.4 % - Continue Lispro SS (7) HTN (hypertension) Code(s): I10 - ESSENTIAL (PRIMARY) HYPERTENSION Comment: - Normotensive - Continue Bystolic (8) GUANACO (obstructive sleep apnea) Code(s): G47.33 - OBSTRUCTIVE SLEEP APNEA (ADULT) (PEDIATRIC) Comment: - Continue BiPAP (9) HLD (hyperlipidemia) Code(s): E78.5 - HYPERLIPIDEMIA, UNSPECIFIED Comment: - Continue atorvastatin (10) Polymyalgia rheumatica Code(s): M35.3 - POLYMYALGIA RHEUMATICA Comment: - Continue prednisone (baseline dose is 8mg daily) (11) DVT prophylaxis Comment: - Lovenox (12) Full code status Code(s): Z78.9 - OTHER SPECIFIED HEALTH STATUS Comment: Status and Disposition: Inpatient. Anticipate d/c home when medically stable, likely tomorrow, but he will need home oxygen. Attending: Maria Eugenia Shin
[2018-12-03] MEDS: cefTRIAXone(*) 1 GM in NS 0.9% 50 ML* 50 ML IVPB SCH (23:52)
[2018-12-04] MEDS: DOXYcycline IV* 100 MG in NS 0.9% 250 ML* 250 ML IVPB SCH ×2 (00:18→12:18)
[2018-12-04] MEDS: Mometasone/Formoter 200/5 MDI INH SCH (07:37)
[2018-12-04] MEDS: Insulin LISPRO* 1 UNITS UNIT SUBCUT SCH ×2 (07:49→12:54)
[2018-12-04] MEDS: Multivitamins/Minerals TAB PO SCH (10:27)
[2018-12-04] MEDS: guaiFENesin ER TAB 600 MG PO SCH (10:27)
[2018-12-04] MEDS: Sertraline* 50 MG TAB PO SCH (10:27)
[2018-12-04] MEDS: CMCS: Nebivolol TAB (NF) 2.5 MG TAB PO SCH (10:28)
[2018-12-04] MEDS: Atorvastatin* 40 MG TAB PO SCH (10:28)
[2018-12-04] MEDS: predniSONE TAB* 20 MG PO SCH (10:28)
[2018-12-04] MEDS: oxyCODONE TAB* 5 MG TAB PO PRN (10:29)
[2018-12-04] MEDS: DULoxetine DR CAP* 60 MG CAP.DR PO SCH (10:31)
[2018-12-04] MEDS: Bumetanide TAB* 1 MG PO SCH (10:31)
[2018-12-04] MEDS: busPIRone TAB* 5 MG PO SCH (10:32)
[2018-12-04] MEDS: Enoxaparin(*) 40 MG/0.4 ML SYR SUBCUT SCH (10:32)
[2018-12-04] MEDS ORDERED: NS 0.9% 250 ML* 250 ML ONE (11:59)
[2018-12-04 12:06] VITALS: BP 133/70
[2018-12-04 12:06] LABS: BUN/Creatinine Ratio 30.2 (8-20); Calcium 9.2 mg/dL (8.6-10.3); EGFR Non-African American 80.2 (>60); Potassium 3.3 mmol/L (3.5-5.0)
--- NOTE | 2018-12-04 13:04 | DS ---
CC: Dr. Aaron William* DISCHARGE SUMMARY: DATE OF ADMISSION: 11/28/18 DATE OF DISCHARGE: 12/04/18 PRIMARY CARE PROVIDER: Dr. Aaron William. DISPOSITION: To home. CONDITION: Improved. PRIMARY DIAGNOSES: Pneumonia and chronic obstructive pulmonary disease exacerbation. SECONDARY DIAGNOSES: 1. Heart failure, diastolic. 2. Diabetes. 3. Hypertension. 4. Obstructive sleep apnea. 5. Polymyalgia rheumatica. 6. History of deep venous thrombosis. PERTINENT STUDIES AND LABS: Chest x-ray, 11/27/18, with small bibasilar infiltrates. Transthoracic echocardiogram on 11/29/18, moderate concentric LVH. EF 55% to 60 %. Abnormal LV diastolic filling. LA mildly dilated. RV mildly dilated with thickness mildly increased. RV global systolic function low. RA mildly dilated. HISTORY OF PRESENT ILLNESS: A 58-year-old male with a history of coronary artery disease with TN in 1994, status post thrombolytic therapy, COPD, obesity , depression, renal cell carcinoma, status post partial nephrectomy, hypertension, GERD, 3 DVTs between 1982 and 2008, no longer on anticoagulation, who presented to the emergency room with acute shortness of breath for 2 days. He had been experiencing abdominal pain and shortness of breath. He thought this was related to penicillin that he was given in Urgent Care for concern for a dental infection. He also notes 2 days of confusion, increased cough, fever, and sweating which he did not initially acknowledge due to the confusion. Given progressive nature and severity of symptoms, he presented to the emergency room. HOSPITAL COURSE: The patient was noted to have oxygen saturation in the 70s. He was given IV steroids and epinephrine given concern for anaphylaxis related to prior antibiotics. However, given quick recurrence in symptoms, notably shortness of breath and hypoxia, the patient was ordered for a chest x-ray which was concerned for bilateral basilar infiltrates, concerning for pneumonia. So, he was started on Levaquin and admitted to the hospital. Throughout the hospital course, the patient continued to require supplemental oxygen and was noted to desaturate to low 80s on ambulation. He continued to feel persistently fatigued, but otherwise his cough and wheezing had significantly improved. After several days of admission, he was unable to be titrated off oxygen to room air. He otherwise felt ready to go home and states that he had to be on home oxygen in the past and does not think he was titrated off of that. He thinks he had just stopped it and likely has been hypoxic at home. He completed an 8-day course of antibiotics and was deemed ready for discharge. On day of discharge, the patient reports mild fatigue improved from admission and improvement in cough. Otherwise, 10-point review of systems was negative. PHYSICAL EXAMINATION: Afebrile, heart rate 80s, blood pressure 130/70, respiratory rate 12, oxygen saturation 90% on 2 L. General: A well-appearing obese man, sitting at the side of bed, breathing comfortably and speaking in full sentences. Alert and interactive. Lungs: Clear to auscultation bilaterally. Heart: Regular rate and rhythm. No murmurs, gallops or rubs. Abdomen: Soft, nontender, nondistended. Protuberant. Extremities: Lower extremities without edema. Warm and well perfused. DISCHARGE PLAN: The patient is to return home on home oxygen. He has completed a course of antibiotics and he should taper his prednisone to return to 8 mg daily which he takes for polymyalgia rheumatica. Otherwise, there were no changes to his home medications. 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 DISCHARGE MEDICATIONS: 1. Prednisone 30 mg 3 days, 20 mg for 3 days, 10 mg for 3 days, then resume 8 mg prednisone daily. 2. Bumetanide 1 mg daily. 3. Advair 1 puff b.i.d. 4. Albuterol q.4 p.r.n. as needed for wheeze. 5. Nebivolol 2.5 mg daily. 6. Oxycodone 1 tab p.o. q.4 hours as needed for pain. 7. Famotidine 20 mg twice a day as needed for reflux. 8. Buspirone 10 mg p.o. b.i.d. 9. Glimepiride 1 mg p.o. b.i.d. 10. Rosuvastatin 20 mg daily. 11. Sertraline 150 mg daily. 12. Testosterone 200 mg intramuscularly every 2 weeks. 13. Duloxetine 60 mg daily. Return precautions were discussed with the patient. He is to resume normal level of activity as tolerated and eat a healthy diet, low in processed foods. TIME SPENT: Approximately 60 minutes were spent on discharge of the patient, more than half of which was spent with care coordination at bedside for interview and exam. [id number]/CPS #: [id number] [place]
== END 2018-12-04 15:30 | disposition home or self-care (01) | DRG 871 ==
LOC: ED 19:09 → MED 11-28 01:10
PROVIDERS: ADMIT Internal Medicine; ATTEND Internal Medicine
PROC: 5A09357 Assistance with Respiratory Ventilation, Less than 24 Consecutive Hours, Continuous Positive Airway Pressure (ICD-10-PCS; principal; 2018-11-27)
DX: A41.9 Sepsis, unspecified organism (principal); J18.9 Pneumonia, unspecified organism; J96.01 Acute respiratory failure with hypoxia; J44.0 Chronic obstructive pulmonary disease with (acute) lower respiratory infection; Z68.42 Body mass index [BMI] 45.0-49.9, adult; I50.30 Unspecified diastolic (congestive) heart failure; J44.1 Chronic obstructive pulmonary disease with (acute) exacerbation; I25.10 Atherosclerotic heart disease of native coronary artery without angina pectoris; E78.00 Pure hypercholesterolemia, unspecified; E11.51 Type 2 diabetes mellitus with diabetic peripheral angiopathy without gangrene; L44.1 Lichen nitidus; K21.9 Gastro-esophageal reflux disease without esophagitis; K58.9 Irritable bowel syndrome, unspecified; I11.0 Hypertensive heart disease with heart failure; M15.9 Polyosteoarthritis, unspecified; F41.9 Anxiety disorder, unspecified; F32.9 Major depressive disorder, single episode, unspecified; M35.3 Polymyalgia rheumatica; Z96.651 Presence of right artificial knee joint; E78.5 Hyperlipidemia, unspecified; G47.33 Obstructive sleep apnea (adult) (pediatric); E66.9 Obesity, unspecified; E87.70 Fluid overload, unspecified; Z85.528 Personal history of other malignant neoplasm of kidney; I25.2 Old myocardial infarction; Z87.891 Personal history of nicotine dependence; Z88.5 Allergy status to narcotic agent; Z88.0 Allergy status to penicillin; Z88.8 Allergy status to other drugs, medicaments and biological substances; Z88.1 Allergy status to other antibiotic agents; Z91.041 Radiographic dye allergy status; Z86.718 Personal history of other venous thrombosis and embolism; Z79.84 Long term (current) use of oral hypoglycemic drugs
CPT/HCPCS: 36415; 71045; 80048; 80053; 81003; 81015; 82947; 83036; 83735; 83880; 84443; 84484; 85025; 86140; 87040; 87086; 93005; 93306; 94640; 94660; 99284; A9270-GY; G8978-GP-CH; G8979-GP-CH; G8980-GP-CH; J0696; J1071; J1650; J2930; J7512

== ENCOUNTER 2019-07-07 19:37 | Emergency (ER) | payer MEDICARE ==
[2019-07-07 19:43] VITALS: BP 170/75
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
== END 2019-07-07 21:02 | disposition home or self-care (01) ==
LOC: ED 19:37
DX: S80.12XA Contusion of left lower leg, initial encounter (principal); W20.8XXA Other cause of strike by thrown, projected or falling object, initial encounter; Y92.9 Unspecified place or not applicable; Z87.891 Personal history of nicotine dependence; E11.9 Type 2 diabetes mellitus without complications; E78.00 Pure hypercholesterolemia, unspecified; I10 Essential (primary) hypertension; I25.2 Old myocardial infarction; I25.10 Atherosclerotic heart disease of native coronary artery without angina pectoris; J44.9 Chronic obstructive pulmonary disease, unspecified; F41.9 Anxiety disorder, unspecified; F32.9 Major depressive disorder, single episode, unspecified; Z85.53 Personal history of malignant neoplasm of renal pelvis
CPT/HCPCS: 99282

== ENCOUNTER 2019-07-08 11:08 | Emergency (ER) | payer MEDICARE ==
[2019-07-08 13:31] VITALS: BP 115/63
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
== END 2019-07-08 14:06 | disposition home or self-care (01) ==
LOC: UCCORT 11:08
DX: S80.12XA Contusion of left lower leg, initial encounter (principal); J45.909 Unspecified asthma, uncomplicated; L03.116 Cellulitis of left lower limb; L02.416 Cutaneous abscess of left lower limb; E11.9 Type 2 diabetes mellitus without complications; Z88.0 Allergy status to penicillin; Z88.5 Allergy status to narcotic agent; Z88.6 Allergy status to analgesic agent; Z88.1 Allergy status to other antibiotic agents; Z88.8 Allergy status to other drugs, medicaments and biological substances; Z91.09 Other allergy status, other than to drugs and biological substances; Z91.018 Allergy to other foods; Z91.041 Radiographic dye allergy status; Z79.899 Other long term (current) drug therapy; Z87.891 Personal history of nicotine dependence; V29.9XXA Motorcycle rider (driver) (passenger) injured in unspecified traffic accident, initial encounter; Y92.9 Unspecified place or not applicable
CPT/HCPCS: 99212; G0463

== ENCOUNTER 2020-01-21 22:45 | Inpatient (IN) ==
[2020-01-22] MEDS ORDERED: Clindamycin 600 MG/D5W BAG(*) 600 MG/50 ML BAG IV ONE (00:16)
[2020-01-22 00:36] LABS: ABS Basophils 0.1 10^3/ul (0-0.2); ABS Lymphocytes 1.4 10^3/ul (1.0-4.8); ABS Monocytes 1.4 10^3/ul (0-0.8); Eosinophil % 0.1 %; Hematocrit 47 % (42-52); Hemoglobin 16.2 g/dL (14.0-18.0); Mean Corpuscular HGB Conc 34 g/dL (31-36); Mean Corpuscular Hemoglobin 33 pg (27-31); Mean Corpuscular Volume 95 fL (80-94); Mean Platelet Volume 7.8 fL (7.4-10.4); Nucleated Red Blood Cells % 0.1; Platelet Count 205 10^3/uL (150-450); Red Blood Count 4.94 10^6 /uL (4.18-5.48); Red Cell Distribution Width 15 % (10-15); White Blood Count 22.8 10^3/uL (3.5-10.8)
[2020-01-22] MEDS ORDERED: Morphine 4 MG/ML VIAL (1 ml) IV ONE (00:39)
[2020-01-22] MEDS ORDERED: Ondansetron 4 mg VIAL 2 MG/ML 2 ml VIAL IV ONE (00:39)
[2020-01-22 00:53] LABS: ALT 30 U/L (7-52); AST 41 U/L (13-39); Albumin 3.7 g/dL (3.2-5.2); Albumin/Globulin Ratio 1.2 (1-3); Alkaline Phosphatase 61 U/L (34-104); Anion Gap 7 mmol/L (2-11); BUN/Creatinine Ratio 10.2 (8-20); Blood Urea Nitrogen 13 mg/dL (6-24); C Reactive Protein 136.53 mg/L (<8.01); CO2 Carbon Dioxide 32 mmol/L (22-32); Calcium 8.9 mg/dL (8.6-10.3); Chloride 94 mmol/L (101-111); EGFR Non-African American 57.8 (>60); Glucose 161 mg/dL (70-100); Potassium 3.2 mmol/L (3.5-5.0); Sodium 133 mmol/L (135-145); Total Protein 6.7 g/dL (6.4-8.9)
[2020-01-22] MEDS ORDERED: NS 0.9% 1000 ml BAG 1,000 ML IV ONE (00:55)
[2020-01-22] MEDS ORDERED: Potassium Chlor 20 meq TAB.ER PO ONE ×2 (00:58→10:05)
[2020-01-22] MEDS ORDERED: NS 0.9% 1000 ml BAG 1,000 ML IV SCH (03:00)
[2020-01-22] MEDS ORDERED: Dextrose 50% Syringe 50 ml 25 GM/50 ML SYRINGE IV PUSH PRN (03:24)
[2020-01-22] MEDS ORDERED: Albuterol HFA INHALER 8 gm MDI INH PRN (03:41)
[2020-01-22 04:43] LABS: Alcohol, S < 10 mg/dL (<10)
[2020-01-22] MEDS: Heparin 5000 UNITS/ML VIAL(*) 1 ml vial SUBCUT SCH ×3 (05:18→20:39)
[2020-01-22 06:25] LABS: ABS Monocytes 1.2 10^3/ul (0-0.8); Eosinophil % 0.1 %; Hematocrit 43 % (42-52); Hemoglobin 15.1 g/dL (14.0-18.0); Lymphocyte % 6.5 %; Mean Corpuscular HGB Conc 35 g/dL (31-36); Mean Corpuscular Hemoglobin 33 pg (27-31); Mean Corpuscular Volume 95 fL (80-94); Mean Platelet Volume 7.9 fL (7.4-10.4); Platelet Count 172 10^3/uL (150-450); Red Blood Count 4.57 10^6 /uL (4.18-5.48); Red Cell Distribution Width 15 % (10-15); White Blood Count 15.6 10^3/uL (3.5-10.8)
[2020-01-22 06:40] LABS: Calcium 8.6 mg/dL (8.6-10.3); EGFR African American 74.7 (>60); EGFR Non-African American 61.8 (>60); Potassium 3.4 mmol/L (3.5-5.0)
[2020-01-22] MEDS: Clindamycin 600 MG/D5W BAG(*) 600 MG/50 ML BAG IV SCH ×2 (08:02→15:52)
[2020-01-22] MEDS: Vitamin THERAPEUTIC TAB PO SCH (08:52)
[2020-01-22] MEDS: DULoxetine DR 60 mg CAP PO SCH (08:53)
[2020-01-22] MEDS: Insulin LISPRO 100 units/ml(*) SUBCUT SCH ×3 (08:53→17:24)
[2020-01-22] MEDS ORDERED: Testosterone Cypionate (NF) 200 MG/ML VIAL IM SCH (09:00)
[2020-01-22] MEDS ORDERED: BUMETANIDE 2 MG PO SCH (09:00)
[2020-01-22] MEDS ORDERED: CMCS: Nebivolol 2.5 mg TAB (NF) PO SCH (09:00)
[2020-01-22] MEDS: Mometasone/Formoter 200/5 MDI INH SCH ×2 (09:04→21:26)
[2020-01-22] MEDS: CMCS: Rosuvastatin 20 mg TAB (NF) PO SCH (10:24)
[2020-01-22 12:10] LABS: Urine Appearance Cloudy; Urine Bilirubin Negative (Negative); Urine Blood Negative (Negative); Urine Color Yellow; Urine Glucose 3+(>=500 mg/dL) (Negative); Urine Ketones Negative (Negative); Urine Nitrite Negative (Negative); Urine Protein Negative (Negative); Urine Specific Gravity 1.009 (1.010-1.030); Urine Urobilinogen Negative (Negative)
[2020-01-22 12:24] LABS: Urine Bacteria Absent (Absent); Urine Red Blood Cell Trace(0-2/hpf) (Absent); Urine Squamous Epithelial Cell Present (Absent); Urine White Blood Cell Trace(0-5/hpf) (Absent)
[2020-01-23] MEDS: Clindamycin 600 MG/D5W BAG(*) 600 MG/50 ML BAG IV SCH ×2 (00:11→08:03)
[2020-01-23] MEDS: Heparin 5000 UNITS/ML VIAL(*) 1 ml vial SUBCUT SCH (05:12)
[2020-01-23 07:26] LABS: ABS Eosinophils 0.3 10^3/ul (0-0.6); ABS Lymphocytes 1.7 10^3/ul (1.0-4.8); ABS Monocytes 0.8 10^3/ul (0-0.8); Eosinophil % 2.5 %; Hematocrit 42 % (42-52); Hemoglobin 14.8 g/dL (14.0-18.0); Lymphocyte % 16.6 %; Mean Corpuscular HGB Conc 35 g/dL (31-36); Mean Corpuscular Hemoglobin 33 pg (27-31); Mean Corpuscular Volume 94 fL (80-94); Mean Platelet Volume 8.1 fL (7.4-10.4); Platelet Count 170 10^3/uL (150-450); Red Blood Count 4.47 10^6 /uL (4.18-5.48); Red Cell Distribution Width 15 % (10-15); White Blood Count 10.5 10^3/uL (3.5-10.8)
[2020-01-23] MEDS: Insulin LISPRO 100 units/ml(*) SUBCUT SCH (07:42)
[2020-01-23] MEDS: DULoxetine DR 60 mg CAP PO SCH (07:59)
[2020-01-23 08:01] LABS: BUN/Creatinine Ratio 12.6 (8-20); Calcium 8.8 mg/dL (8.6-10.3); EGFR African American 97.9 (>60); EGFR Non-African American 80.9 (>60); Potassium 3.4 mmol/L (3.5-5.0)
[2020-01-23] MEDS: CMCS: Rosuvastatin 20 mg TAB (NF) PO SCH (08:01)
[2020-01-23] MEDS: Vitamin THERAPEUTIC TAB PO SCH (08:01)
[2020-01-23] MEDS: Mometasone/Formoter 200/5 MDI INH SCH (09:01)
[2020-01-23 09:19] VITALS: BP 110/59
== END 2020-01-23 12:00 | disposition home or self-care (01) | DRG 872 ==
LOC: ED 22:45 → MED 01-22 03:37
PROVIDERS: ADMIT Internal Medicine; ATTEND Internal Medicine

== ENCOUNTER 2021-03-17 14:44 | Inpatient (IN) ==
[2021-03-17] MEDS ORDERED: NS 0.9% 500 ml BAG 500 ML IV ONE (15:05)
[2021-03-17 16:14] LABS: Hematocrit 46 % (42-52); Hemoglobin 15.3 g/dL (14.0-18.0); Mean Corpuscular HGB Conc 33 g/dL (31-36); Mean Corpuscular Hemoglobin 31 pg (27-31); Mean Corpuscular Volume 92 fL (80-94); Mean Platelet Volume 8.5 fL (7.4-10.4); Platelet Count 216 10^3/uL (150-450); Red Blood Count 5.01 10^6 /uL (4.18-5.48); Red Cell Distribution Width 15 % (10-15)
[2021-03-17 16:22] LABS: ABS Eosinophils 0.2 10^3/ul (0-0.6); ABS Lymphocytes 0.9 10^3/ul (1.0-4.8); ABS Monocytes 1.6 10^3/ul (0-0.8); ABS Neutrophils 18.3 10^3/ul (1.5-7.7); Eosinophil % 0.9 %; Lymphocyte % 4.1 %; Nucleated Red Blood Cells % 0.1
[2021-03-17 16:37] LABS: Albumin 3.3 g/dL (3.2-5.2); Albumin/Globulin Ratio 1.3 (1-3); C Reactive Protein 144.18 mg/L (<8.01); Calcium 8.5 mg/dL (8.6-10.3); EGFR African American 31.9 (>60); EGFR Non-African American 26.4 (>60); Globulin 2.5 g/dL (2-4); Magnesium 1.3 mg/dL (1.9-2.7); Total Bilirubin 1.2 mg/dL (0.2-1.0); Total Protein 5.8 g/dL (6.4-8.9)
[2021-03-17] MEDS ORDERED: Cefepime 1 GM in Dextrose 1 GM/50 ML BAG IV ONE (16:47)
[2021-03-17] MEDS ORDERED: NS 0.9% 1000 ml BAG 1,000 ML IV ONE (16:48)
[2021-03-17] MEDS ORDERED: Magnesium Sulfate IV 3 GM in NS 0.9% 100 ml BAG 100 ML IVPB ONE ×2 (16:49→17:04)
[2021-03-17] MEDS ORDERED: Morphine 2 MG/ML SYRINGE IV ONE (17:15)
[2021-03-17] MEDS ORDERED: NS 0.9% 250 ml 250 ML IV ONE (18:06)
[2021-03-17] MEDS: KCL 20 MEQ/100 ML IVPREMIX 20 MEQ/100 ML BAG IV SCH ×2 (18:24→22:27)
[2021-03-17] MEDS ORDERED: Dextrose 50% Syringe 50 ml 25 GM/50 ML SYRINGE IV PUSH PRN (19:28)
[2021-03-17] MEDS ORDERED: Albuterol/Ipratropium NEB.SOL (2.5/0.5 MG) 3 ML NEB.SOLN INH PRN (19:46)
[2021-03-17] MEDS ORDERED: Vancomycin 1,500 MG in NS 0.9% 250 ml 250 ML IVPB ONE (20:03)
[2021-03-17 20:41] LABS: Anion Gap 9 mmol/L (2-11); Blood Urea Nitrogen 24 mg/dL (6-24); CO2 Carbon Dioxide 26 mmol/L (22-32); Calcium 7.9 mg/dL (8.6-10.3); Chloride 100 mmol/L (101-111); EGFR African American 36.1 (>60); EGFR Non-African American 29.8 (>60); Glucose 280 mg/dL (70-100); Lipase < 10 U/L (11.0-82.0); Potassium 3.5 mmol/L (3.5-5.0); Sodium 135 mmol/L (135-145)
[2021-03-17 21:06] LABS: Creatine Kinase 5987 U/L (10-223)
[2021-03-17] MEDS: Cefepime 2 GM in Dextrose 2 GM/50 ML BAG IV SCH (21:35)
[2021-03-17] MEDS: Heparin 5000 UNITS/ML 1 mL VIAL SUBCUT SCH (22:25)
[2021-03-17] MEDS: methylPREDNISolone 125 mg 2 ML VIAL IV SCH (22:25)
[2021-03-17] MEDS: DOXYcycline 100 MG in NS 0.9% 250 ml 250 ML IVPB SCH (22:33)
[2021-03-17 22:45] LABS: PCO2 Arterial 38 mmHg (35-45); PO2 Arterial 67 mmHg (80-100)
[2021-03-17] MEDS ORDERED: Vancomycin per Pharmacy 1 EA NOTE FOLLOW UP SCH (23:00)
[2021-03-18 05:19] LABS: ABS Basophils 0.1 10^3/ul (0-0.2); ABS Lymphocytes 0.3 10^3/ul (1.0-4.8); ABS Monocytes 0.3 10^3/ul (0-0.8); ABS Neutrophils 13.9 10^3/ul (1.5-7.7); Eosinophil % 0.1 %; Hematocrit 40 % (42-52); Hemoglobin 13.4 g/dL (14.0-18.0); Lymphocyte % 1.9 %; Mean Corpuscular HGB Conc 34 g/dL (31-36); Mean Corpuscular Hemoglobin 31 pg (27-31); Mean Corpuscular Volume 92 fL (80-94); Mean Platelet Volume 8.3 fL (7.4-10.4); Platelet Count 138 10^3/uL (150-450); Red Blood Count 4.31 10^6 /uL (4.18-5.48); Red Cell Distribution Width 15 % (10-15); White Blood Count 14.6 10^3/uL (3.5-10.8)
[2021-03-18 05:37] LABS: ALT 54 U/L (7-52); Albumin 2.7 g/dL (3.2-5.2); Albumin/Globulin Ratio 1.4 (1-3); Alkaline Phosphatase 42 U/L (35-149); Blood Urea Nitrogen 24 mg/dL (6-24); CO2 Carbon Dioxide 17 mmol/L (22-32); Calcium 6.8 mg/dL (8.6-10.3); Chloride 110 mmol/L (101-111); EGFR African American 62.3 (>60); EGFR Non-African American 51.5 (>60); Glucose 208 mg/dL (70-100); Magnesium 1.9 mg/dL (1.9-2.7); Phosphorus 2.8 mg/dL (2.5-5.0); Sodium 136 mmol/L (135-145); Total Protein 4.7 g/dL (6.4-8.9)
[2021-03-18 05:56] LABS: Creatine Kinase 3301 U/L (10-223)
[2021-03-18] MEDS ORDERED: Vancomycin Random Level NOTE FOLLOW UP ONE (06:00)
[2021-03-18] MEDS: Heparin 5000 UNITS/ML 1 mL VIAL SUBCUT SCH ×3 (06:07→20:26)
[2021-03-18 06:28] LABS: Anion Gap 9 mmol/L (2-11)
[2021-03-18] MEDS: Mometasone/Formoter 200/5 MDI INH SCH ×2 (08:30→19:34)
[2021-03-18] MEDS ORDERED: Magnesium Sulfate 2 gm BAG 2 GM/50 ML BAG IVPB ONE (08:41)
[2021-03-18] MEDS: methylPREDNISolone 125 mg 2 ML VIAL IV SCH (09:28)
[2021-03-18] MEDS: DULoxetine DR 60 mg CAP PO SCH (09:28)
[2021-03-18] MEDS: DOXYcycline 100 MG in NS 0.9% 250 ml 250 ML IVPB SCH ×2 (09:28→20:26)
[2021-03-18] MEDS: Cefepime 2 GM in Dextrose 2 GM/50 ML BAG IV SCH ×2 (09:28→20:26)
[2021-03-18 10:03] LABS: Urine Appearance Cloudy; Urine Bilirubin Negative (Negative); Urine Blood 2+ (Negative); Urine Color Yellow; Urine Glucose 1+(50 mg/dL) (Negative); Urine Ketones Negative (Negative); Urine Nitrite Negative (Negative); Urine Protein Negative (Negative); Urine Urobilinogen Negative (Negative)
[2021-03-18 10:09] LABS: Urine Amorphous Crystals Present (Absent); Urine Bacteria Absent (Absent); Urine Red Blood Cell Trace(0-2/hpf) (Absent); Urine Squamous Epithelial Cell Present (Absent); Urine White Blood Cell Trace(0-5/hpf) (Absent)
[2021-03-18 10:39] LABS: Potassium Redraw 4.1 mmol/L (3.5-5.0)
[2021-03-18] MEDS ORDERED: Vancomycin 1,250 MG in NS 0.9% 250 ml 250 ML IVPB ONE (11:00)
[2021-03-18] MEDS ORDERED: NS 0.9% 250 ml 250 ML ONE (20:23)
[2021-03-18] MEDS ORDERED: Insulin GLARGINE 100 un/ml 10 ml VIAL SUBCUT SCH (21:00)
[2021-03-19] MEDS: Heparin 5000 UNITS/ML 1 mL VIAL SUBCUT SCH ×3 (05:07→22:07)
[2021-03-19 05:57] LABS: ABS Lymphocytes 0.7 10^3/ul (1.0-4.8); ABS Monocytes 0.6 10^3/ul (0-0.8); ABS Neutrophils 13.8 10^3/ul (1.5-7.7); Eosinophil % 0.1 %; Hematocrit 39 % (42-52); Hemoglobin 13.6 g/dL (14.0-18.0); Lymphocyte % 4.4 %; Mean Corpuscular HGB Conc 35 g/dL (31-36); Mean Corpuscular Hemoglobin 32 pg (27-31); Mean Corpuscular Volume 90 fL (80-94); Mean Platelet Volume 8.4 fL (7.4-10.4); Platelet Count 187 10^3/uL (150-450); Red Blood Count 4.31 10^6 /uL (4.18-5.48); Red Cell Distribution Width 15 % (10-15); White Blood Count 15.1 10^3/uL (3.5-10.8)
[2021-03-19 06:00] LABS: Vancomycin Random 11.2 mcg/mL
[2021-03-19] MEDS ORDERED: Vancomycin Random Level NOTE FOLLOW UP ONE (06:00)
[2021-03-19 06:02] LABS: Albumin 2.8 g/dL (3.2-5.2); Albumin/Globulin Ratio 0.9 (1-3); Calcium 8.4 mg/dL (8.6-10.3); EGFR African American 75.9 (>60); EGFR Non-African American 62.8 (>60); Magnesium 2.6 mg/dL (1.9-2.7); Phosphorus 3.1 mg/dL (2.5-5.0); Potassium 3.5 mmol/L (3.5-5.0); Total Bilirubin 0.6 mg/dL (0.2-1.0); Total Protein 5.8 g/dL (6.4-8.9)
[2021-03-19] MEDS ORDERED: Potassium Chloride LIQUID 20 MEQ/15 ML LIQUID PO ONE (06:16)
[2021-03-19] MEDS: DULoxetine DR 60 mg CAP PO SCH (08:03)
[2021-03-19] MEDS: methylPREDNISolone 125 mg 2 ML VIAL IV SCH (08:03)
[2021-03-19] MEDS: Cefepime 2 GM in Dextrose 2 GM/50 ML BAG IV SCH ×2 (08:03→20:12)
[2021-03-19] MEDS: DOXYcycline 100 MG in NS 0.9% 250 ml 250 ML IVPB SCH ×2 (08:04→22:07)
[2021-03-19] MEDS: Mometasone/Formoter 200/5 MDI INH SCH ×2 (10:51→19:49)
[2021-03-19] MEDS: Vancomycin 1000 MG in NS 0.9% 250 ML IVPB SCH (12:04)
[2021-03-19] MEDS: Insulin GLARGINE 100 un/ml 10 ml VIAL SUBCUT SCH (20:13)
[2021-03-20] MEDS: Vancomycin 1000 MG in NS 0.9% 250 ML IVPB SCH ×2 (02:00→12:56)
[2021-03-20] MEDS: Heparin 5000 UNITS/ML 1 mL VIAL SUBCUT SCH ×3 (05:49→22:01)
[2021-03-20 06:39] LABS: ABS Eosinophils 0.1 10^3/ul (0-0.6); ABS Lymphocytes 1.2 10^3/ul (1.0-4.8); ABS Monocytes 0.8 10^3/ul (0-0.8); ABS Neutrophils 9.9 10^3/ul (1.5-7.7); Eosinophil % 0.7 %; Hematocrit 41 % (42-52); Hemoglobin 13.7 g/dL (14.0-18.0); Mean Corpuscular HGB Conc 34 g/dL (31-36); Mean Corpuscular Hemoglobin 31 pg (27-31); Mean Corpuscular Volume 91 fL (80-94); Mean Platelet Volume 8.2 fL (7.4-10.4); Platelet Count 177 10^3/uL (150-450); Red Blood Count 4.47 10^6 /uL (4.18-5.48); Red Cell Distribution Width 15 % (10-15)
[2021-03-20 07:02] LABS: Albumin 2.8 g/dL (3.2-5.2); Calcium 8.5 mg/dL (8.6-10.3); EGFR African American 98.7 (>60); EGFR Non-African American 81.6 (>60); Globulin 2.8 g/dL (2-4); Magnesium 1.9 mg/dL (1.9-2.7); Phosphorus 2.9 mg/dL (2.5-5.0); Potassium 3.8 mmol/L (3.5-5.0); Total Bilirubin 0.5 mg/dL (0.2-1.0); Total Protein 5.6 g/dL (6.4-8.9)
[2021-03-20] MEDS: Mometasone/Formoter 200/5 MDI INH SCH ×2 (08:01→20:37)
[2021-03-20] MEDS: DULoxetine DR 60 mg CAP PO SCH (08:36)
[2021-03-20] MEDS: Cefepime 2 GM in Dextrose 2 GM/50 ML BAG IV SCH ×2 (08:36→20:16)
[2021-03-20] MEDS: DOXYcycline 100 MG in NS 0.9% 250 ml 250 ML IVPB SCH ×2 (11:31→22:01)
[2021-03-20] MEDS: Insulin GLARGINE 100 un/ml 10 ml VIAL SUBCUT SCH (20:16)
[2021-03-21] MEDS: Vancomycin 1000 MG in NS 0.9% 250 ML IVPB SCH ×2 (01:45→14:53)
[2021-03-21] MEDS: Heparin 5000 UNITS/ML 1 mL VIAL SUBCUT SCH ×3 (06:33→20:38)
[2021-03-21] MEDS: Mometasone/Formoter 200/5 MDI INH SCH ×2 (08:29→19:29)
[2021-03-21] MEDS: DULoxetine DR 60 mg CAP PO SCH (10:00)
[2021-03-21] MEDS ORDERED: Vancomycin Trough Check NOTE FOLLOW UP ONE (11:30)
[2021-03-21 12:09] LABS: Hematocrit 41 % (42-52); Hemoglobin 13.8 g/dL (14.0-18.0); Mean Corpuscular HGB Conc 34 g/dL (31-36); Mean Corpuscular Hemoglobin 31 pg (27-31); Mean Corpuscular Volume 91 fL (80-94); Mean Platelet Volume 8.4 fL (7.4-10.4); Platelet Count 190 10^3/uL (150-450); Red Blood Count 4.54 10^6 /uL (4.18-5.48); Red Cell Distribution Width 15 % (10-15); White Blood Count 11.5 10^3/uL (3.5-10.8)
[2021-03-21 12:24] LABS: Calcium 8.4 mg/dL (8.6-10.3); Potassium 3.7 mmol/L (3.5-5.0)
[2021-03-21 12:30] LABS: EGFR African American 95.2 (>60); EGFR Non-African American 78.7 (>60)
[2021-03-21 13:26] LABS: ABS Basophils 0.1 10^3/ul (0-0.2); ABS Eosinophils 0.6 10^3/ul (0-0.6); ABS Lymphocytes 1.4 10^3/ul (1.0-4.8); ABS Monocytes 0.9 10^3/ul (0-0.8); ABS Neutrophils 8.6 10^3/ul (1.5-7.7); Eosinophil % 5.2 %; Lymphocyte % 11.8 %
[2021-03-21] MEDS: Cefepime 2 GM in Dextrose 2 GM/50 ML BAG IV SCH ×2 (14:51→14:52)
[2021-03-21] MEDS: DOXYcycline 100 MG in NS 0.9% 250 ml 250 ML IVPB SCH (14:52)
[2021-03-21] MEDS: Vancomycin 1,000 MG in NS 0.9% 250 ml 250 ML IVPB SCH (16:00)
[2021-03-21] MEDS: Insulin GLARGINE 100 un/ml 10 ml VIAL SUBCUT SCH (21:19)
[2021-03-22] MEDS: Cefepime 2 GM in Dextrose 2 GM/50 ML BAG IV SCH ×2 (03:30→15:26)
[2021-03-22] MEDS: Heparin 5000 UNITS/ML 1 mL VIAL SUBCUT SCH ×3 (05:15→21:08)
[2021-03-22] MEDS: Vancomycin 1,000 MG in NS 0.9% 250 ml 250 ML IVPB SCH ×2 (05:37→16:39)
[2021-03-22] MEDS: Mometasone/Formoter 200/5 MDI INH SCH ×2 (08:14→20:01)
[2021-03-22 08:56] LABS: Hematocrit 46 % (42-52); Hemoglobin 15.5 g/dL (14.0-18.0); Mean Corpuscular HGB Conc 34 g/dL (31-36); Mean Corpuscular Hemoglobin 31 pg (27-31); Mean Corpuscular Volume 92 fL (80-94); Mean Platelet Volume 8.3 fL (7.4-10.4); Platelet Count 230 10^3/uL (150-450); Red Blood Count 4.98 10^6 /uL (4.18-5.48); Red Cell Distribution Width 15 % (10-15)
[2021-03-22 09:12] LABS: Calcium 8.6 mg/dL (8.6-10.3); EGFR African American 103.8 (>60); EGFR Non-African American 85.8 (>60); Magnesium 1.4 mg/dL (1.9-2.7); Potassium 3.6 mmol/L (3.5-5.0)
[2021-03-22] MEDS: DULoxetine DR 60 mg CAP PO SCH (09:16)
[2021-03-22 09:56] LABS: ABS Basophils 0.1 10^3/ul (0-0.2); ABS Eosinophils 0.7 10^3/ul (0-0.6); ABS Lymphocytes 2.2 10^3/ul (1.0-4.8); ABS Neutrophils 11.1 10^3/ul (1.5-7.7); Eosinophil % 4.4 %; Lymphocyte % 14.4 %
[2021-03-22] MEDS ORDERED: Magnesium Sulfate IV 3 GM in NS 0.9% 100 ml BAG 100 ML IVPB ONE (10:39)
[2021-03-22] MEDS: Potassium Chlor 20 meq TAB.ER PO SCH (11:51)
[2021-03-22] MEDS: Insulin GLARGINE 100 un/ml 10 ml VIAL SUBCUT SCH (21:11)
[2021-03-23] MEDS ORDERED: diPHENhydraMINE 25 mg TAB PO PRN (00:27)
[2021-03-23] MEDS: Cefepime 2 GM in Dextrose 2 GM/50 ML BAG IV SCH (03:04)
[2021-03-23] MEDS: Vancomycin 1,000 MG in NS 0.9% 250 ml 250 ML IVPB SCH (03:42)
[2021-03-23] MEDS: Heparin 5000 UNITS/ML 1 mL VIAL SUBCUT SCH ×3 (05:58→20:45)
[2021-03-23 06:40] LABS: Hematocrit 44 % (42-52); Hemoglobin 14.5 g/dL (14.0-18.0); Mean Corpuscular HGB Conc 33 g/dL (31-36); Mean Corpuscular Hemoglobin 31 pg (27-31); Mean Corpuscular Volume 92 fL (80-94); Mean Platelet Volume 8.2 fL (7.4-10.4); Platelet Count 239 10^3/uL (150-450); Red Blood Count 4.73 10^6 /uL (4.18-5.48); Red Cell Distribution Width 15 % (10-15); White Blood Count 15.9 10^3/uL (3.5-10.8)
[2021-03-23 06:58] LABS: ABS Basophils 0.1 10^3/ul (0-0.2); ABS Eosinophils 0.7 10^3/ul (0-0.6); ABS Lymphocytes 2.2 10^3/ul (1.0-4.8); ABS Monocytes 0.9 10^3/ul (0-0.8); Eosinophil % 4.2 %; Lymphocyte % 13.9 %
[2021-03-23 06:59] LABS: Calcium 8.4 mg/dL (8.6-10.3); EGFR African American 106.5 (>60); Magnesium 1.8 mg/dL (1.9-2.7); Potassium 3.8 mmol/L (3.5-5.0)
[2021-03-23] MEDS: Mometasone/Formoter 200/5 MDI INH SCH ×2 (07:36→19:38)
[2021-03-23] MEDS ORDERED: Potassium Chlor 20 meq TAB.ER PO ONE (08:45)
[2021-03-23] MEDS: DULoxetine DR 60 mg CAP PO SCH (08:48)
[2021-03-23] MEDS: Potassium Chlor 20 meq TAB.ER PO SCH (08:48)
[2021-03-23] MEDS: Insulin GLARGINE 100 un/ml 10 ml VIAL SUBCUT SCH (20:46)
[2021-03-24] MEDS: Heparin 5000 UNITS/ML 1 mL VIAL SUBCUT SCH (05:22)
[2021-03-24 06:36] LABS: Hematocrit 46 % (42-52); Hemoglobin 15.7 g/dL (14.0-18.0); Mean Corpuscular HGB Conc 34 g/dL (31-36); Mean Corpuscular Hemoglobin 31 pg (27-31); Mean Corpuscular Volume 92 fL (80-94); Mean Platelet Volume 8.6 fL (7.4-10.4); Platelet Count 233 10^3/uL (150-450); Red Blood Count 5.02 10^6 /uL (4.18-5.48); Red Cell Distribution Width 15 % (10-15); White Blood Count 14.1 10^3/uL (3.5-10.8)
[2021-03-24 06:53] LABS: Calcium 9.2 mg/dL (8.6-10.3); EGFR African American 102.5 (>60); EGFR Non-African American 84.7 (>60); Potassium 3.8 mmol/L (3.5-5.0)
[2021-03-24 08:10] LABS: ABS Basophils 0.1 10^3/ul (0-0.2); ABS Eosinophils 0.6 10^3/ul (0-0.6); ABS Lymphocytes 2.1 10^3/ul (1.0-4.8); ABS Monocytes 0.9 10^3/ul (0-0.8); ABS Neutrophils 10.5 10^3/ul (1.5-7.7); Lymphocyte % 14.9 %
[2021-03-24] MEDS: Mometasone/Formoter 200/5 MDI INH SCH (08:27)
[2021-03-24] MEDS: DULoxetine DR 60 mg CAP PO SCH (09:05)
[2021-03-24] MEDS: Potassium Chlor 20 meq TAB.ER PO SCH (09:06)
[2021-03-24 13:22] VITALS: BP 129/58
[2021-03-24] MEDS ORDERED: Vancomycin Trough Check NOTE FOLLOW UP ONE (15:30)
== END 2021-03-24 13:20 | disposition home or self-care (01) | DRG 871 ==
LOC: ED 14:44 → ICU 18:58 → MED 03-19 18:30
PROVIDERS: ADMIT Internal Medicine; ATTEND Student in an Organized Health Care Education/Training Program

== ENCOUNTER 2021-08-26 13:58 | Inpatient (IN) ==
[2021-08-26] MEDS ORDERED: Albuterol HFA INHALER 8 gm MDI INH ONE (15:26)
[2021-08-26 15:35] LABS: ABS Eosinophils 0.1 10^3/ul (0-0.6); ABS Lymphocytes 1.3 10^3/ul (1.0-4.8); ABS Monocytes 0.7 10^3/ul (0-0.8); ABS Neutrophils 4.7 10^3/ul (1.5-7.7); Eosinophil % 1.1 %; Hematocrit 49 % (42-52); Hemoglobin 16.7 g/dL (14.0-18.0); Lymphocyte % 18.6 %; Mean Corpuscular HGB Conc 34 g/dL (31-36); Mean Corpuscular Hemoglobin 31 pg (27-31); Mean Corpuscular Volume 90 fL (80-94); Mean Platelet Volume 8.4 fL (7.4-10.4); Nucleated Red Blood Cells % 0.1; Platelet Count 102 10^3/uL (150-450); Red Blood Count 5.45 10^6 /uL (4.18-5.48); Red Cell Distribution Width 15 % (10-15); White Blood Count 6.7 10^3/uL (3.5-10.8)
[2021-08-26 15:51] LABS: Activated Partial Thrombo Time 27.8 seconds (26.0-38.0); INR 1.15 (0.86-1.15)
[2021-08-26 15:57] LABS: Troponin I 0.01 ng/mL (<0.03)
[2021-08-26 16:14] LABS: Albumin 3.6 g/dL (3.2-5.2); Albumin/Globulin Ratio 1.2 (1-3); C Reactive Protein 97.51 mg/L (<8.01); Calcium 8.7 mg/dL (8.6-10.3); Potassium 3.5 mmol/L (3.5-5.0); Total Bilirubin 0.8 mg/dL (0.2-1.0); Total Protein 6.6 g/dL (6.4-8.9); eGFR CKD-EPI 73.2 (>60)
[2021-08-26] MEDS ORDERED: Dexamethasone IV 4 MG/ML VIAL 1 ml VIAL IV SLOW PU ONE (16:56)
[2021-08-26] MEDS ORDERED: cefTRIAXone 1 gm/50 mL NS BAG 1 GM/50 ML BAG IV ONE (16:58)
[2021-08-26] MEDS ORDERED: Albuterol HFA INHALER 8 gm MDI INH PRN (17:53)
[2021-08-26] MEDS ORDERED: Dextrose 50% Syringe 50 ml 25 GM/50 ML SYRINGE IV PUSH PRN (18:24)
[2021-08-26] MEDS ORDERED: Remdesivir 100 mg Vial 200 MG in NS 0.9% 250 ml 210 ML IV ONE (19:00)
[2021-08-26] MEDS ORDERED: Enoxaparin 40 MG/0.4 ML SYR SUBCUT SCH (21:00)
[2021-08-26 21:19] LABS: Urine Appearance Clear; Urine Bilirubin Negative (Negative); Urine Blood Negative (Negative); Urine Color Yellow; Urine Glucose Negative (Negative); Urine Ketones Trace (Negative); Urine Nitrite Negative (Negative); Urine Protein Negative (Negative); Urine Specific Gravity 1.012 (1.002-1.030); Urine Urobilinogen Negative (Negative)
[2021-08-26] MEDS: Insulin GLARGINE 100 un/ml 10 ml VIAL SUBCUT SCH (22:08)
[2021-08-26] MEDS: Cholecalciferol (VIT D3) 1,000 unit TAB PO SCH (22:10)
[2021-08-27 05:14] LABS: ABS Lymphocytes 0.4 10^3/ul (1.0-4.8); ABS Monocytes 0.3 10^3/ul (0-0.8); ABS Neutrophils 4.1 10^3/ul (1.5-7.7); Albumin 3.3 g/dL (3.2-5.2); Albumin/Globulin Ratio 1.1 (1-3); Globulin 2.9 g/dL (2-4); Hematocrit 47 % (42-52); Hemoglobin 15.8 g/dL (14.0-18.0); Lymphocyte % 7.4 %; Mean Corpuscular HGB Conc 34 g/dL (31-36); Mean Corpuscular Hemoglobin 30 pg (27-31); Mean Corpuscular Volume 89 fL (80-94); Mean Platelet Volume 8.2 fL (7.4-10.4); Nucleated Red Blood Cells % 0.3; Platelet Count 96 10^3/uL (150-450); Potassium 4.6 mmol/L (3.5-5.0); Red Cell Distribution Width 15 % (10-15); Total Bilirubin 0.6 mg/dL (0.2-1.0); Total Protein 6.2 g/dL (6.4-8.9); White Blood Count 4.8 10^3/uL (3.5-10.8); eGFR CKD-EPI 68.8 (>60)
[2021-08-27 05:19] LABS: INR 1.2 (0.86-1.15)
[2021-08-27] MEDS ORDERED: Testosterone Cypionate (NF) 200 MG/ML VIAL IM SCH (09:00)
[2021-08-27] MEDS: DULoxetine DR 60 mg CAP PO SCH (09:32)
[2021-08-27] MEDS: Cholecalciferol (VIT D3) 1,000 unit TAB PO SCH ×2 (09:33→22:03)
[2021-08-27] MEDS: Mometasone/Formoter 200/5 MDI INH SCH ×2 (10:32→19:21)
[2021-08-27] MEDS: CMC:Nebivolol 2.5 mg TAB (NF) PO SCH (11:33)
[2021-08-27 17:28] LABS: Glucose Confirmatory 500 mg/dL (70-100)
[2021-08-27] MEDS ORDERED: cefTRIAXone 1 gm/50 mL NS BAG 1 GM/50 ML BAG IVPB SCH (18:00)
[2021-08-27] MEDS ORDERED: Remdesivir 100 mg Vial 100 MG in NS 0.9% 250 ml 230 ML IV SCH (21:00)
[2021-08-27 21:12] LABS: Glucose Confirmatory 498 mg/dL (70-100)
[2021-08-27] MEDS: Enoxaparin 60 MG/0.6 ML SYR SUBCUT SCH (22:04)
[2021-08-27] MEDS: Insulin GLARGINE 100 un/ml 10 ml VIAL SUBCUT SCH (22:05)
[2021-08-28 07:12] LABS: INR 1.11 (0.86-1.15)
[2021-08-28] MEDS: Mometasone/Formoter 200/5 MDI INH SCH (08:00)
[2021-08-28] MEDS: Enoxaparin 60 MG/0.6 ML SYR SUBCUT SCH (08:21)
[2021-08-28] MEDS: DULoxetine DR 60 mg CAP PO SCH (08:22)
[2021-08-28] MEDS: CMC:Nebivolol 2.5 mg TAB (NF) PO SCH (08:22)
[2021-08-28] MEDS: Cholecalciferol (VIT D3) 1,000 unit TAB PO SCH (08:22)
[2021-08-28 15:18] VITALS: BP 138/75
== END 2021-08-28 17:10 | disposition home or self-care (01) | DRG 177 ==
LOC: ED 13:58 → EDHOLD 17:50 → MED 08-27 02:43
PROVIDERS: ADMIT Internal Medicine; ATTEND Internal Medicine

== ENCOUNTER 2021-10-20 03:42 | Inpatient (IN) ==
[2021-10-20] MEDS ORDERED: Lactated Ringers 1000 ml BAG IV.FLUID IV ONE (03:54)
[2021-10-20] MEDS ORDERED: Vancomycin 1,500 MG in NS 0.9% 250 ml 250 ML IVPB ONE (04:00)
[2021-10-20 04:17] LABS: ABS Eosinophils 0.1 10^3/ul (0-0.6); ABS Lymphocytes 1.5 10^3/ul (1.0-4.8); ABS Monocytes 0.5 10^3/ul (0-0.8); ABS Neutrophils 19.1 10^3/ul (1.5-7.7); Eosinophil % 0.4 %; Hematocrit 44 % (42-52); Hemoglobin 15.3 g/dL (14.0-18.0); Lymphocyte % 7.3 %; Mean Corpuscular HGB Conc 35 g/dL (31-36); Mean Corpuscular Hemoglobin 31 pg (27-31); Mean Corpuscular Volume 89 fL (80-94); Mean Platelet Volume 8.1 fL (7.4-10.4); Platelet Count 225 10^3/uL (150-450); Red Blood Count 4.98 10^6 /uL (4.18-5.48); Red Cell Distribution Width 16 % (10-15); White Blood Count 21.3 10^3/uL (3.5-10.8)
[2021-10-20] MEDS ORDERED: metroNIDAZOLE IV 500 MG/100ML 500 MG/100 ML BAG IVPB ONE (04:17)
[2021-10-20 04:33] LABS: Albumin 3.8 g/dL (3.2-5.2); Albumin/Globulin Ratio 1.1 (1-3); Calcium 9.3 mg/dL (8.6-10.3); Globulin 3.5 g/dL (2-4); Potassium 3.4 mmol/L (3.5-5.0); Total Bilirubin 1.2 mg/dL (0.2-1.0); Total Protein 7.3 g/dL (6.4-8.9); eGFR CKD-EPI 71.2 (>60)
[2021-10-20] MEDS ORDERED: Cefepime 2 GM in Dextrose 2 GM/50 ML BAG IV ONE (05:30)
[2021-10-20 05:42] LABS: C Reactive Protein 27.03 mg/L (<8.01); Creatine Kinase 92 U/L (10-223)
[2021-10-20] MEDS ORDERED: Morphine 2 MG/ML SYRINGE IV ONE (06:12)
[2021-10-20 06:15] LABS: Troponin I 0.04 ng/mL (<0.03)
[2021-10-20 06:22] LABS: Activated Partial Thrombo Time 25.6 seconds (26.0-38.0); INR 1.12 (0.86-1.15)
[2021-10-20] MEDS ORDERED: Albuterol HFA INHALER 8 gm MDI INH PRN (06:46)
[2021-10-20] MEDS ORDERED: Dextrose 50% Syringe 50 ml 25 GM/50 ML SYRINGE IV PUSH PRN (06:52)
[2021-10-20] MEDS ORDERED: Testosterone Cypionate (NF) 200 MG/ML VIAL IM SCH (07:00)
[2021-10-20] MEDS ORDERED: Lactated Ringers 1000 ml BAG 1,000 ML IV ONE (07:05)
[2021-10-20] MEDS: Mometasone/Formoter 200/5 MDI INH SCH ×2 (07:30→19:13)
[2021-10-20] MEDS ORDERED: Lactated Ringers 1000 ml BAG 1,000 ML IV SCH (08:00)
[2021-10-20] MEDS ORDERED: DULoxetine DR 60 mg CAP PO SCH (09:00)
[2021-10-20] MEDS: Insulin GLARGINE 100 un/ml 10 ml VIAL SUBCUT SCH (10:32)
[2021-10-20] MEDS: Clindamycin 600 MG/D5W BAG 600 MG/50 ML BAG IV SCH ×2 (11:33→19:58)
[2021-10-20] MEDS: Enoxaparin 40 MG/0.4 ML SYR SUBCUT SCH (11:58)
[2021-10-20 12:09] LABS: Troponin I 0.04 ng/mL (<0.03)
[2021-10-20] MEDS: Meropenem 1 GM PREMIX(*) 1 GM/50 ML BAG IV SCH ×2 (12:37→23:12)
[2021-10-20 14:27] LABS: Troponin I 0.03 ng/mL (<0.03)
[2021-10-20] MEDS: DOXYcycline 100 MG in NS 0.9% 250 ml 250 ML IVPB SCH (16:14)
[2021-10-20 22:50] LABS: ABS Lymphocytes 0.9 10^3/ul (1.0-4.8); ABS Monocytes 0.9 10^3/ul (0-0.8); ABS Neutrophils 12.1 10^3/ul (1.5-7.7); Eosinophil % 0.1 %; Hematocrit 40 % (42-52); Hemoglobin 13.3 g/dL (14.0-18.0); Lymphocyte % 6.3 %; Mean Corpuscular HGB Conc 33 g/dL (31-36); Mean Corpuscular Hemoglobin 30 pg (27-31); Mean Corpuscular Volume 89 fL (80-94); Mean Platelet Volume 7.6 fL (7.4-10.4); Platelet Count 160 10^3/uL (150-450); Red Blood Count 4.48 10^6 /uL (4.18-5.48); Red Cell Distribution Width 16 % (10-15); White Blood Count 13.9 10^3/uL (3.5-10.8)
[2021-10-20 23:20] LABS: Calcium 8.2 mg/dL (8.6-10.3); Potassium 3.4 mmol/L (3.5-5.0); eGFR CKD-EPI 82.1 (>60)
[2021-10-21] MEDS: Clindamycin 600 MG/D5W BAG 600 MG/50 ML BAG IV SCH (02:53)
[2021-10-21] MEDS: DOXYcycline 100 MG in NS 0.9% 250 ml 250 ML IVPB SCH (04:17)
[2021-10-21 06:37] LABS: ABS Eosinophils 0.1 10^3/ul (0-0.6); ABS Lymphocytes 1.5 10^3/ul (1.0-4.8); ABS Monocytes 0.8 10^3/ul (0-0.8); ABS Neutrophils 9.9 10^3/ul (1.5-7.7); Eosinophil % 0.7 %; Hematocrit 38 % (42-52); Hemoglobin 12.8 g/dL (14.0-18.0); Lymphocyte % 12.4 %; Mean Corpuscular HGB Conc 33 g/dL (31-36); Mean Corpuscular Hemoglobin 30 pg (27-31); Mean Corpuscular Volume 90 fL (80-94); Mean Platelet Volume 7.8 fL (7.4-10.4); Platelet Count 160 10^3/uL (150-450); Red Blood Count 4.23 10^6 /uL (4.18-5.48); Red Cell Distribution Width 16 % (10-15); White Blood Count 12.4 10^3/uL (3.5-10.8)
[2021-10-21 07:00] LABS: Albumin 2.7 g/dL (3.2-5.2); Albumin/Globulin Ratio 1.2 (1-3); Calcium 8.2 mg/dL (8.6-10.3); Globulin 2.2 g/dL (2-4); Magnesium 1.5 mg/dL (1.9-2.7); Total Bilirubin 1.2 mg/dL (0.2-1.0); Total Protein 4.9 g/dL (6.4-8.9); eGFR CKD-EPI 97.2 (>60)
[2021-10-21] MEDS ORDERED: Potassium Chloride LIQUID 20 MEQ/15 ML LIQUID PO ONE (07:15)
[2021-10-21] MEDS ORDERED: Magnesium Sulf 4 GM/100 ML IV 4,000 MG/100 ML BAG IVPB ONE (07:15)
[2021-10-21] MEDS: Mometasone/Formoter 200/5 MDI INH SCH ×2 (07:54→19:20)
[2021-10-21] MEDS: Insulin GLARGINE 100 un/ml 10 ml VIAL SUBCUT SCH (08:43)
[2021-10-21] MEDS: Enoxaparin 40 MG/0.4 ML SYR SUBCUT SCH (08:43)
[2021-10-21] MEDS: Linezolid 600 MG IVPREMIX(*) 600 MG/300 ML BAG IVPB SCH ×2 (08:44→21:34)
[2021-10-21] MEDS: KCL 20 MEQ/100 ML IVPREMIX 20 MEQ/100 ML BAG IV SCH ×2 (10:53→13:53)
[2021-10-21] MEDS ORDERED: Furosemide 20 mg/2 ml IV VIAL IV SLOW PU ONE (11:02)
[2021-10-21] MEDS: CMCS:Nebivolol 2.5 mg TAB (NF) PO SCH (12:11)
[2021-10-21 14:52] LABS: Urine Appearance Clear; Urine Bilirubin Negative (Negative); Urine Blood Negative (Negative); Urine Color Colorless; Urine Glucose 3+(>=500 mg/dL) (Negative); Urine Ketones Negative (Negative); Urine Nitrite Negative (Negative); Urine Protein Negative (Negative); Urine Specific Gravity 1.002 (1.002-1.030); Urine Urobilinogen Negative (Negative)
[2021-10-22 05:38] LABS: ABS Eosinophils 0.2 10^3/ul (0-0.6); ABS Lymphocytes 1.4 10^3/ul (1.0-4.8); ABS Monocytes 0.6 10^3/ul (0-0.8); ABS Neutrophils 6.8 10^3/ul (1.5-7.7); Eosinophil % 1.9 %; Hematocrit 38 % (42-52); Hemoglobin 12.8 g/dL (14.0-18.0); Lymphocyte % 15.3 %; Mean Corpuscular HGB Conc 34 g/dL (31-36); Mean Corpuscular Hemoglobin 30 pg (27-31); Mean Corpuscular Volume 89 fL (80-94); Mean Platelet Volume 7.7 fL (7.4-10.4); Platelet Count 157 10^3/uL (150-450); Red Blood Count 4.24 10^6 /uL (4.18-5.48); Red Cell Distribution Width 15 % (10-15)
[2021-10-22 06:00] LABS: Calcium 8.1 mg/dL (8.6-10.3); Potassium 3.1 mmol/L (3.5-5.0); eGFR CKD-EPI 96.9 (>60)
[2021-10-22] MEDS ORDERED: Potassium Chloride LIQUID 20 MEQ/15 ML LIQUID PO ONE (07:19)
[2021-10-22] MEDS: Mometasone/Formoter 200/5 MDI INH SCH ×2 (07:44→19:50)
[2021-10-22] MEDS: Insulin GLARGINE 100 un/ml 10 ml VIAL SUBCUT SCH (08:19)
[2021-10-22] MEDS: Enoxaparin 40 MG/0.4 ML SYR SUBCUT SCH (08:19)
[2021-10-22] MEDS: CMCS:Nebivolol 2.5 mg TAB (NF) PO SCH (08:20)
[2021-10-22] MEDS: Linezolid 600 MG IVPREMIX(*) 600 MG/300 ML BAG IVPB SCH (08:24)
[2021-10-22] MEDS ORDERED: Potassium Chlor 20 meq TAB.ER PO ONE (08:42)
[2021-10-22] MEDS ORDERED: Furosemide 20 mg/2 ml IV VIAL IV SLOW PU ONE (10:17)
[2021-10-22] MEDS: cefTRIAXone 2 GM ADDV.VIAL 2 GM in NS 0.9% 100 ml BAG 100 ML IV SCH (14:40)
[2021-10-22] MEDS: Cholecalciferol (VIT D3) 1,000 unit TAB PO SCH (21:36)
[2021-10-22] MEDS: Potassium Chlor 10 meq TAB PO SCH (21:37)
[2021-10-23 05:33] LABS: ABS Eosinophils 0.2 10^3/ul (0-0.6); ABS Lymphocytes 1.5 10^3/ul (1.0-4.8); ABS Monocytes 0.6 10^3/ul (0-0.8); ABS Neutrophils 5.9 10^3/ul (1.5-7.7); Eosinophil % 1.8 %; Hematocrit 38 % (42-52); Hemoglobin 12.7 g/dL (14.0-18.0); Lymphocyte % 18.7 %; Mean Corpuscular HGB Conc 34 g/dL (31-36); Mean Corpuscular Hemoglobin 30 pg (27-31); Mean Corpuscular Volume 89 fL (80-94); Mean Platelet Volume 8.4 fL (7.4-10.4); Platelet Count 180 10^3/uL (150-450); Red Blood Count 4.21 10^6 /uL (4.18-5.48); Red Cell Distribution Width 15 % (10-15); White Blood Count 8.2 10^3/uL (3.5-10.8)
[2021-10-23 05:53] LABS: C Reactive Protein 130.62 mg/L (<8.01); Calcium 8.5 mg/dL (8.6-10.3); Magnesium 1.9 mg/dL (1.9-2.7); Potassium 3.7 mmol/L (3.5-5.0); eGFR CKD-EPI 97.2 (>60)
[2021-10-23] MEDS ORDERED: Furosemide 20 mg/2 ml IV VIAL IV SLOW PU ONE (07:12)
[2021-10-23] MEDS: Mometasone/Formoter 200/5 MDI INH SCH ×2 (08:18→20:04)
[2021-10-23] MEDS: Cholecalciferol (VIT D3) 1,000 unit TAB PO SCH ×2 (08:39→20:18)
[2021-10-23] MEDS: Potassium Chlor 10 meq TAB PO SCH ×2 (08:39→20:18)
[2021-10-23] MEDS: Enoxaparin 40 MG/0.4 ML SYR SUBCUT SCH (08:39)
[2021-10-23] MEDS: Insulin GLARGINE 100 un/ml 10 ml VIAL SUBCUT SCH (08:40)
[2021-10-23] MEDS: CMCS:Nebivolol 2.5 mg TAB (NF) PO SCH (08:44)
[2021-10-23] MEDS: cefTRIAXone 2 GM ADDV.VIAL 2 GM in NS 0.9% 100 ml BAG 100 ML IV SCH (15:33)
[2021-10-24 06:26] LABS: ABS Eosinophils 0.2 10^3/ul (0-0.6); ABS Lymphocytes 2.1 10^3/ul (1.0-4.8); ABS Monocytes 0.5 10^3/ul (0-0.8); ABS Neutrophils 4.7 10^3/ul (1.5-7.7); Eosinophil % 2.6 %; Hematocrit 38 % (42-52); Hemoglobin 12.7 g/dL (14.0-18.0); Lymphocyte % 27.6 %; Mean Corpuscular HGB Conc 34 g/dL (31-36); Mean Corpuscular Hemoglobin 30 pg (27-31); Mean Corpuscular Volume 90 fL (80-94); Mean Platelet Volume 8.5 fL (7.4-10.4); Platelet Count 210 10^3/uL (150-450); Red Blood Count 4.24 10^6 /uL (4.18-5.48); Red Cell Distribution Width 15 % (10-15); White Blood Count 7.5 10^3/uL (3.5-10.8)
[2021-10-24 06:44] LABS: Calcium 8.8 mg/dL (8.6-10.3); Magnesium 1.7 mg/dL (1.9-2.7); Potassium 4.2 mmol/L (3.5-5.0); eGFR CKD-EPI 97.6 (>60)
[2021-10-24] MEDS: Mometasone/Formoter 200/5 MDI INH SCH ×2 (07:15→19:08)
[2021-10-24] MEDS: Cholecalciferol (VIT D3) 1,000 unit TAB PO SCH ×2 (08:42→20:55)
[2021-10-24] MEDS: CMCS:Nebivolol 2.5 mg TAB (NF) PO SCH (08:43)
[2021-10-24] MEDS ORDERED: Magnesium Sulfate 2 gm BAG 2 GM/50 ML BAG IVPB ONE (08:44)
[2021-10-24] MEDS: Potassium Chlor 10 meq TAB PO SCH ×2 (08:44→20:52)
[2021-10-24] MEDS: DULoxetine DR 60 mg CAP PO SCH (08:44)
[2021-10-24] MEDS: Enoxaparin 40 MG/0.4 ML SYR SUBCUT SCH (08:45)
[2021-10-24] MEDS: Insulin GLARGINE 100 un/ml 10 ml VIAL SUBCUT SCH (08:45)
[2021-10-25 06:58] LABS: ABS Eosinophils 0.2 10^3/ul (0-0.6); ABS Lymphocytes 2.3 10^3/ul (1.0-4.8); ABS Monocytes 0.7 10^3/ul (0-0.8); Hematocrit 41 % (42-52); Hemoglobin 13.4 g/dL (14.0-18.0); Lymphocyte % 22.8 %; Mean Corpuscular HGB Conc 33 g/dL (31-36); Mean Corpuscular Hemoglobin 30 pg (27-31); Mean Corpuscular Volume 91 fL (80-94); Mean Platelet Volume 8.1 fL (7.4-10.4); Platelet Count 239 10^3/uL (150-450); Red Blood Count 4.52 10^6 /uL (4.18-5.48); Red Cell Distribution Width 15 % (10-15); White Blood Count 10.3 10^3/uL (3.5-10.8)
[2021-10-25 07:12] LABS: Potassium 4.4 mmol/L (3.5-5.0)
[2021-10-25 07:17] LABS: eGFR CKD-EPI 101.2 (>60)
[2021-10-25] MEDS: Mometasone/Formoter 200/5 MDI INH SCH (07:20)
[2021-10-25] MEDS: Insulin GLARGINE 100 un/ml 10 ml VIAL SUBCUT SCH (09:37)
[2021-10-25] MEDS: Enoxaparin 40 MG/0.4 ML SYR SUBCUT SCH (09:38)
[2021-10-25] MEDS: CMCS:Nebivolol 2.5 mg TAB (NF) PO SCH (09:41)
[2021-10-25] MEDS: Potassium Chlor 10 meq TAB PO SCH (09:41)
[2021-10-25] MEDS: DULoxetine DR 60 mg CAP PO SCH (09:42)
[2021-10-25] MEDS: Cholecalciferol (VIT D3) 1,000 unit TAB PO SCH (09:42)
[2021-10-25 15:19] VITALS: BP 125/60
[2021-10-27 19:02] LABS: Cyclic Citrullinated Pept IgG <15.6 U
== END 2021-10-25 14:50 | disposition home or self-care (01) | DRG 871 ==
LOC: ED 03:42 → EDHOLD 06:09 → SUATTDRO 06:09 → MEDTELE 08:24
PROVIDERS: ADMIT Internal Medicine; ATTEND Internal Medicine

== ENCOUNTER 2022-08-11 03:07 | Observation (INO) ==
[2022-08-11] MEDS ORDERED: NS 0.9% 1000 ml BAG 1,000 ML IV ONE (03:42)
[2022-08-11] MEDS ORDERED: cefTRIAXone 1 gm/50 mL D5W 1 GM/50 ML BAG IV ONE ×2 (03:45→11:18)
[2022-08-11 04:16] LABS: ABS Eosinophils 0.1 10^3/ul (0-0.6); ABS Lymphocytes 1.3 10^3/ul (1.0-4.8); ABS Monocytes 0.9 10^3/ul (0-0.8); ABS Neutrophils 12.6 10^3/ul (1.5-7.7); Eosinophil % 0.6 %; Hematocrit 48 % (42-52); Hemoglobin 16.2 g/dL (14.0-18.0); Mean Corpuscular HGB Conc 34 g/dL (31-36); Mean Corpuscular Hemoglobin 30 pg (27-31); Mean Corpuscular Volume 89 fL (80-94); Mean Platelet Volume 7.6 fL (7.4-10.4); Nucleated Red Blood Cells % 0.1; Platelet Count 131 10^3/uL (150-450); Red Blood Count 5.36 10^6 /uL (4.18-5.48); Red Cell Distribution Width 15 % (10-15); White Blood Count 14.9 10^3/uL (3.5-10.8)
[2022-08-11 04:41] LABS: High Sens Troponin Baseline 13 pg/mL (<20)
[2022-08-11 04:48] LABS: ALT 34 U/L (7-52); AST 43 U/L (13-39); Acetaminophen < 15 mcg/mL; Albumin 3.3 g/dL (3.2-5.2); Albumin/Globulin Ratio 1.3 (1-3); Alcohol, S < 13 mg/dL (<13); Alkaline Phosphatase 70 U/L (35-149); Anion Gap 11 mmol/L (2-11); Blood Urea Nitrogen 16 mg/dL (6-24); CO2 Carbon Dioxide 26 mmol/L (22-32); Calcium 9.1 mg/dL (8.6-10.3); Chloride 97 mmol/L (101-111); Globulin 2.5 g/dL (2-4); Glucose 148 mg/dL (70-100); Potassium 3.7 mmol/L (3.5-5.0); Salicylate < 2.50 mg/dL (<30); Sodium 134 mmol/L (135-145); Total Protein 5.8 g/dL (6.4-8.9); eGFR CKD-EPI 57.3 (>60)
[2022-08-11] MEDS ORDERED: DOXYcycline 100 MG in NS 0.9% 250 ml 250 ML IVPB ONE (05:40)
[2022-08-11 06:25] LABS: High Sensitivity Troponin 1 Hr 12 pg/mL (<20)
[2022-08-11 08:33] LABS: Urine Appearance Clear; Urine Bilirubin 1+ (Small) (Negative); Urine Blood Negative (Negative); Urine Color Yellow; Urine Glucose Negative (Negative); Urine Ketones 1+ (15mg/dL) (Negative); Urine Nitrite Negative (Negative); Urine Protein 1+ (30 mg/dL) (Negative); Urine Specific Gravity 1.025 (1.005-1.030); Urine Urobilinogen 0.2 (Negative) (Negative); Urine pH 5.5 (5.0-9.0)
[2022-08-11 08:41] LABS: Urine Bacteria 1+ (Absent); Urine Red Blood Cell Trace(0-2/hpf) (Absent); Urine Squamous Epithelial Cell Present (Absent); Urine White Blood Cell 1+(6-10/hpf) (Absent)
[2022-08-11 08:51] LABS: Urine Benzodiazepine Screen None Detected (None Detect); Urine Cannabinoids Screen None Detected (None Detect); Urine Opiates Screen Presumptive Positive (None Detect)
[2022-08-11 10:54] LABS: Magnesium 1.5 mg/dL (1.9-2.7)
[2022-08-11] MEDS: Enoxaparin 40 MG/0.4 ML SYR SUBCUT SCH (11:11)
[2022-08-11] MEDS ORDERED: Albuterol HFA INHALER 8 gm MDI INH PRN (11:21)
[2022-08-11] MEDS ORDERED: DULoxetine DR 60 mg CAP PO SCH (12:00)
[2022-08-11] MEDS ORDERED: Magnesium Sulf 4 GM/100 ML IV 4,000 MG/100 ML BAG IVPB ONE (12:38)
[2022-08-11] MEDS ORDERED: Fluticasone/Vilanterol MDI(NF) 200/25 MDI INH SCH (13:00)
[2022-08-11] MEDS ORDERED: NS 0.9% 1000 ml BAG 1,000 ML IV SCH ×2 (13:00→13:55)
[2022-08-11] MEDS: DULoxetine DR 60 mg CAP PO SCH (16:57)
[2022-08-11] MEDS: Mometasone/Formoter 200/5 MDI INH SCH ×2 (16:57→20:28)
[2022-08-11] MEDS ORDERED: DOXYcycline 100 MG in NS 0.9% 250 ml 250 ML IVPB SCH (20:00)
[2022-08-11] MEDS: Cholecalciferol (VIT D3) 1,000 unit TAB PO SCH (20:37)
[2022-08-11] MEDS ORDERED: Insulin GLARGINE 100 un/ml 10 ml VIAL SUBCUT SCH ×2 (21:00)
[2022-08-11] MEDS: DOXYcycline 100 MG in NS 0.9% 250 ml 250 ML IVPB SCH (21:11)
[2022-08-12] MEDS ORDERED: cefTRIAXone 1 gm/50 mL D5W 1 GM/50 ML BAG IV SCH (06:00)
[2022-08-12] MEDS ORDERED: cefTRIAXone 2 gm/50 mL D5W 2 GM/50 ML BAG IV SCH (06:00)
[2022-08-12 07:14] LABS: ABS Eosinophils 0.1 10^3/ul (0-0.6); ABS Lymphocytes 1.3 10^3/ul (1.0-4.8); ABS Monocytes 0.8 10^3/ul (0-0.8); ABS Neutrophils 5.7 10^3/ul (1.5-7.7); Eosinophil % 1.9 %; Hematocrit 41 % (42-52); Hemoglobin 14.5 g/dL (14.0-18.0); Lymphocyte % 16.1 %; Mean Corpuscular HGB Conc 35 g/dL (31-36); Mean Corpuscular Hemoglobin 31 pg (27-31); Mean Corpuscular Volume 88 fL (80-94); Mean Platelet Volume 7.9 fL (7.4-10.4); Platelet Count 129 10^3/uL (150-450); Red Blood Count 4.69 10^6 /uL (4.18-5.48); Red Cell Distribution Width 15 % (10-15); White Blood Count 7.9 10^3/uL (3.5-10.8)
[2022-08-12 07:28] LABS: ALT 38 U/L (7-52); Albumin 2.8 g/dL (3.2-5.2); Albumin/Globulin Ratio 1.1 (1-3); Alkaline Phosphatase 51 U/L (35-149); Blood Urea Nitrogen 15 mg/dL (6-24); CO2 Carbon Dioxide 26 mmol/L (22-32); Chloride 103 mmol/L (101-111); Globulin 2.5 g/dL (2-4); Glucose 172 mg/dL (70-100); Sodium 136 mmol/L (135-145); Total Protein 5.3 g/dL (6.4-8.9); eGFR CKD-EPI 78.5 (>60)
[2022-08-12 07:30] LABS: Anion Gap 7 mmol/L (2-11)
[2022-08-12] MEDS: Mometasone/Formoter 200/5 MDI INH SCH ×2 (07:35→20:32)
[2022-08-12] MEDS: Cholecalciferol (VIT D3) 1,000 unit TAB PO SCH ×2 (08:52→20:22)
[2022-08-12] MEDS: DULoxetine DR 60 mg CAP PO SCH (08:52)
[2022-08-12] MEDS: DOXYcycline 100 MG in NS 0.9% 250 ml 250 ML IVPB SCH ×2 (08:53→20:23)
[2022-08-12 09:10] LABS: Magnesium 1.8 mg/dL (1.9-2.7); Potassium Redraw 3.8 mmol/L (3.5-5.0)
[2022-08-12] MEDS ORDERED: Magnesium Sulfate 2 gm BAG 2 GM/50 ML BAG IVPB ONE (09:21)
[2022-08-12] MEDS: Enoxaparin 40 MG/0.4 ML SYR SUBCUT SCH (10:19)
[2022-08-12] MEDS ORDERED: Dextrose 50% Syringe 50 ml 25 GM/50 ML SYRINGE IV PUSH PRN ×2 (13:12→16:41)
[2022-08-12] MEDS ORDERED: Insulin GLARGINE 100 un/ml 10 ml VIAL SUBCUT SCH (21:00)
[2022-08-13] MEDS ORDERED: cefTRIAXone 1 gm/50 mL D5W 1 GM/50 ML BAG IV SCH (07:00)
[2022-08-13] MEDS: Cholecalciferol (VIT D3) 1,000 unit TAB PO SCH (08:19)
[2022-08-13] MEDS: DULoxetine DR 60 mg CAP PO SCH (08:19)
[2022-08-13] MEDS: Mometasone/Formoter 200/5 MDI INH SCH (08:30)
[2022-08-13 08:58] VITALS: BP 115/51
[2022-08-13] MEDS: DOXYcycline 100 MG in NS 0.9% 250 ml 250 ML IVPB SCH (09:13)
== END 2022-08-13 10:42 | disposition home or self-care (01) ==
LOC: ED 03:07 → EDHOLD 03:07 → SUATTDRO 06:26 → EDHOLD 17:48 → MEDTELE 18:29
PROVIDERS: ADMIT Internal Medicine; ATTEND Internal Medicine

== ENCOUNTER 2023-02-03 11:32 | Inpatient (IN) ==
[2023-02-03 12:49] LABS: Hematocrit 46.8 % (38-53); Hemoglobin 16.1 g/dL (13.2-16.3); Mean Corpuscular Hemoglobin 30.7 pg (27-33); Mean Corpuscular Hgb Conc 34.4 g/dL (31-36); Mean Corpuscular Volume 89.4 fL (80-97); Mean Platelet Volume 7.7 fL (7.5-11.2); Platelet Count 216 10^3/uL (150-450); Red Blood Count 5.23 10^6/uL (4.06-5.63); Red Cell Distribution Width 14.5 % (12-17); White Blood Count 21.5 10^3/uL (3.6-10.2)
[2023-02-03 13:01] LABS: INR 1.34 (0.88-1.18)
[2023-02-03 13:19] LABS: ABS Basophils 0.1 10^3/uL (0.0-0.1); ABS Eosinophils 0.2 10^3/uL (0.0-0.5); ABS Lymphocytes 1.8 10^3/uL (1.0-4.8); ABS Neutrophils 17.5 10^3/uL (1.5-7.6); ABS Nucleated RBC 0.05 10^3/ul; Eosinophil % 0.8 %; Lymphocyte % 8.4 %; Nucleated Red Blood Cells % 0.2 /100 WBC (0.0-0.4)
[2023-02-03 13:30] LABS: Albumin 3.5 g/dL (3.2-5.2); C Reactive Protein 227.99 mg/L (<8.01); Calcium 9.2 mg/dL (8.6-10.3); Creatinine, Serum 1.11 mg/dL (0.67-1.17); Globulin 3.6 g/dL (2-4); Potassium 4.1 mmol/L (3.5-5.0); Total Bilirubin 3.4 mg/dL (0.2-1.0); Total Protein 7.1 g/dL (6.4-8.9); eGFR CKD-EPI 74.6 (>60)
[2023-02-03 14:04] LABS: Venous Bicarbonate HCO3 24.7 mmol/L (24-28)
[2023-02-03 14:39] LABS: High Sensitivity Troponin 1 Hr 9 pg/mL (<20)
[2023-02-03] MEDS ORDERED: Lactated Ringers 1000 ml BAG 1,000 ML IV ONE (15:13)
[2023-02-03] MEDS ORDERED: Azithromycin 500 mg/250 ml NS 500 MG/250 ML BAG IVPB ONE (15:17)
[2023-02-03] MEDS ORDERED: Aztreonam 2 GM in NS 0.9% 50 ML 50 ML IVPB ONE (15:17)
[2023-02-03] MEDS ORDERED: Vancomycin 1,500 MG in NS 0.9% 250 ml 250 ML IVPB ONE (16:00)
[2023-02-03 16:29] LABS: Albumin 2.9 g/dL (3.2-5.2); Direct Bilirubin 1.4 mg/dL (0.03-0.18); Indirect Bilirubin 2.5 mg/dL (0.3-1.0); Total Bilirubin 3.9 mg/dL (0.2-1.0); Total Protein 5.9 g/dL (6.4-8.9)
[2023-02-03] MEDS ORDERED: DOXYcycline 100 MG in NS 0.9% 250 ml 250 ML IVPB ONE (16:30)
[2023-02-03 17:36] LABS: Urine Appearance Clear; Urine Bilirubin Negative (Negative); Urine Blood Negative (Negative); Urine Color Yellow; Urine Glucose Negative (Negative); Urine Ketones Trace (Negative); Urine Nitrite Negative (Negative); Urine Protein Negative (Negative); Urine Specific Gravity 1.008 (1.002-1.030); Urine Urobilinogen Negative (Negative)
[2023-02-03] MEDS ORDERED: Albuterol HFA INHALER 8 gm MDI INH PRN (17:50)
[2023-02-03] MEDS: NS 0.9% 1000 ml BAG 1,000 ML IV SCH (18:31)
[2023-02-03] MEDS: Enoxaparin 40 MG/0.4 ML SYR SUBCUT SCH (22:29)
[2023-02-03] MEDS: Potassium Chlor 10 meq TAB PO SCH (22:30)
[2023-02-03] MEDS: Insulin GLARGINE 100 un/ml 10 ml VIAL SUBCUT SCH (23:00)
[2023-02-04] MEDS ORDERED: Aztreonam 1 GM in NS 0.9% 50 ML 50 ML IV SCH
[2023-02-04] MEDS: Aztreonam 1 GM in NS 0.9% 50 ML 50 ML IV SCH ×2 (00:11→10:24)
[2023-02-04 05:55] LABS: ABS Eosinophils 0.1 10^3/uL (0.0-0.5); ABS Lymphocytes 1.5 10^3/uL (1.0-4.8); ABS Monocytes 1.2 10^3/uL (0.0-1.1); ABS Neutrophils 11.3 10^3/uL (1.5-7.6); ABS Nucleated RBC 0.01 10^3/ul; Eosinophil % 0.7 %; Hematocrit 42.2 % (38-53); Hemoglobin 14.4 g/dL (13.2-16.3); Lymphocyte % 10.8 %; Mean Corpuscular Hemoglobin 31.7 pg (27-33); Mean Corpuscular Hgb Conc 34.2 g/dL (31-36); Mean Corpuscular Volume 92.7 fL (80-97); Mean Platelet Volume 9.1 fL (7.5-11.2); Nucleated Red Blood Cells % 0.1 /100 WBC (0.0-0.4); Platelet Count 125 10^3/uL (150-450); Red Blood Count 4.55 10^6/uL (4.06-5.63); Red Cell Distribution Width 14.5 % (12-17); White Blood Count 14.1 10^3/uL (3.6-10.2)
[2023-02-04 06:05] LABS: Albumin 2.7 g/dL (3.2-5.2); Calcium 7.9 mg/dL (8.6-10.3); Creatinine, Serum 0.84 mg/dL (0.67-1.17); Potassium 3.9 mmol/L (3.5-5.0); Total Bilirubin 2.1 mg/dL (0.2-1.0)
[2023-02-04] MEDS: NS 0.9% 1000 ml BAG 1,000 ML IV SCH ×2 (06:12→16:57)
[2023-02-04 06:16] LABS: Globulin 2.7 g/dL (2-4); Total Protein 5.4 g/dL (6.4-8.9)
[2023-02-04] MEDS: Mometasone/Formoter 200/5 MDI INH SCH ×2 (08:35→20:19)
[2023-02-04] MEDS: DULoxetine DR 60 mg CAP PO SCH (10:27)
[2023-02-04] MEDS: Potassium Chlor 10 meq TAB PO SCH ×2 (10:27→19:55)
[2023-02-04] MEDS: Cholecalciferol (VIT D3) 1,000 unit TAB PO SCH (10:27)
[2023-02-04] MEDS: Multivitamins/Minerals TAB PO SCH (10:28)
[2023-02-04] MEDS: Aztreonam 2 GM in NS 0.9% 100 ML 100 ML IV SCH (17:49)
[2023-02-04] MEDS ORDERED: Azithromycin 500 mg/250 ml NS 500 MG/250 ML BAG IVPB SCH (18:00)
[2023-02-04] MEDS: Enoxaparin 40 MG/0.4 ML SYR SUBCUT SCH (19:56)
[2023-02-04] MEDS: Insulin GLARGINE 100 un/ml 10 ml VIAL SUBCUT SCH (20:04)
[2023-02-05] MEDS: Aztreonam 2 GM in NS 0.9% 100 ML 100 ML IV SCH ×3 (01:22→19:22)
[2023-02-05] MEDS: NS 0.9% 1000 ml BAG 1,000 ML IV SCH (02:58)
[2023-02-05] MEDS: Mometasone/Formoter 200/5 MDI INH SCH ×2 (07:10→18:49)
[2023-02-05 08:46] LABS: ABS Eosinophils 0.2 10^3/uL (0.0-0.5); ABS Monocytes 0.9 10^3/uL (0.0-1.1); ABS Nucleated RBC 0.01 10^3/ul; Eosinophil % 1.6 %; Hematocrit 41.9 % (38-53); Hemoglobin 14.4 g/dL (13.2-16.3); Lymphocyte % 15.2 %; Mean Corpuscular Hemoglobin 30.8 pg (27-33); Mean Corpuscular Hgb Conc 34.4 g/dL (31-36); Mean Corpuscular Volume 89.5 fL (80-97); Mean Platelet Volume 7.8 fL (7.5-11.2); Nucleated Red Blood Cells % 0.1 /100 WBC (0.0-0.4); Platelet Count 190 10^3/uL (150-450); Red Blood Count 4.68 10^6/uL (4.06-5.63); Red Cell Distribution Width 14.2 % (12-17); White Blood Count 13.1 10^3/uL (3.6-10.2)
[2023-02-05] MEDS: Multivitamins/Minerals TAB PO SCH (09:08)
[2023-02-05] MEDS: Cholecalciferol (VIT D3) 1,000 unit TAB PO SCH (09:08)
[2023-02-05] MEDS: DULoxetine DR 60 mg CAP PO SCH (09:09)
[2023-02-05] MEDS: Potassium Chlor 10 meq TAB PO SCH ×2 (09:09→19:58)
[2023-02-05 09:14] LABS: Albumin 3.1 g/dL (3.2-5.2); Calcium 8.5 mg/dL (8.6-10.3); Total Bilirubin 0.7 mg/dL (0.2-1.0)
[2023-02-05 09:20] LABS: Creatinine, Serum 0.9 mg/dL (0.67-1.17); Total Protein 6.1 g/dL (6.4-8.9)
[2023-02-05 10:06] LABS: Potassium 3.6 mmol/L (3.5-5.0)
[2023-02-05] MEDS: methylPREDNISolone SOD SUCC 40 mg/ml 1 ml VIAL IV SCH ×2 (15:25→19:58)
[2023-02-05] MEDS: Insulin GLARGINE 100 un/ml 10 ml VIAL SUBCUT SCH (19:57)
[2023-02-05] MEDS: Enoxaparin 40 MG/0.4 ML SYR SUBCUT SCH (19:58)
[2023-02-06] MEDS: Aztreonam 2 GM in NS 0.9% 100 ML 100 ML IV SCH ×2 (01:43→09:42)
[2023-02-06] MEDS: Mometasone/Formoter 200/5 MDI INH SCH (07:26)
[2023-02-06] MEDS: Multivitamins/Minerals TAB PO SCH (09:01)
[2023-02-06] MEDS: Cholecalciferol (VIT D3) 1,000 unit TAB PO SCH (09:03)
[2023-02-06] MEDS: DULoxetine DR 60 mg CAP PO SCH (09:04)
[2023-02-06] MEDS: Potassium Chlor 10 meq TAB PO SCH (09:04)
[2023-02-06] MEDS: methylPREDNISolone SOD SUCC 40 mg/ml 1 ml VIAL IV SCH (09:42)
[2023-02-06 10:48] VITALS: BP 132/71
[2023-02-06] MEDS ORDERED: methylPREDNISolone SOD SUCC 125 mg 2 ML VIAL IV SCH (21:00)
== END 2023-02-06 14:35 | disposition home or self-care (01) | DRG 871 ==
LOC: ED 11:32 → EDHOLD 11:32 → MEDTELE 20:15
PROVIDERS: ADMIT Hospitalist; ATTEND Hospitalist

== ENCOUNTER 2023-02-12 14:49 | Inpatient (IN) ==
[2023-02-12] MEDS ORDERED: Dexamethasone IV 4 MG/ML VIAL 1 ml VIAL IV SLOW PU ONE (15:43)
[2023-02-12] MEDS ORDERED: Albuterol/Ipratropium NEB.SOL (2.5/0.5 MG) 3 ML NEB.SOLN INH ONE (15:43)
[2023-02-12 16:30] LABS: ABS Basophils 0.1 10^3/uL (0.0-0.1); ABS Eosinophils 0.1 10^3/uL (0.0-0.5); ABS Monocytes 1.3 10^3/uL (0.0-1.1); ABS Neutrophils 17.5 10^3/uL (1.5-7.6); ABS Nucleated RBC 0.01 10^3/ul; Eosinophil % 0.4 %; Hematocrit 38.8 % (38-53); Hemoglobin 13.3 g/dL (13.2-16.3); Lymphocyte % 9.6 %; Mean Corpuscular Hemoglobin 30.1 pg (27-33); Mean Corpuscular Hgb Conc 34.2 g/dL (31-36); Mean Platelet Volume 7.6 fL (7.5-11.2); Nucleated Red Blood Cells % 0.1 /100 WBC (0.0-0.4); Platelet Count 337 10^3/uL (150-450); Red Blood Count 4.41 10^6/uL (4.06-5.63); Red Cell Distribution Width 14.3 % (12-17); White Blood Count 21.1 10^3/uL (3.6-10.2)
[2023-02-12 16:46] LABS: Albumin 2.8 g/dL (3.2-5.2); Albumin/Globulin Ratio 0.8 (1-3); C Reactive Protein 253.85 mg/L (<8.01); Calcium 8.5 mg/dL (8.6-10.3); Creatinine, Serum 1.06 mg/dL (0.67-1.17); Globulin 3.4 g/dL (2-4); Potassium 3.8 mmol/L (3.5-5.0); Total Bilirubin 1.5 mg/dL (0.2-1.0); Total Protein 6.2 g/dL (6.4-8.9); eGFR CKD-EPI 78.9 (>60)
[2023-02-12] MEDS: Aztreonam 2 GM in NS 0.9% 100 ml BAG 100 ML IV SCH (18:46)
[2023-02-12] MEDS: DOXYcycline 100 MG in NS 0.9% 250 ml 250 ML IVPB SCH (20:11)
[2023-02-12] MEDS ORDERED: Albuterol 2.5mg/3 ml (0.083%) NEB.SOLN INH PRN (20:12)
[2023-02-12] MEDS ORDERED: Dextrose 50% Syringe 50 ml 25 GM/50 ML SYRINGE IV PUSH PRN (20:16)
[2023-02-12] MEDS: Potassium Chlor 10 meq TAB PO SCH (22:02)
[2023-02-12] MEDS: Insulin GLARGINE 100 un/ml 10 ml VIAL SUBCUT SCH (22:12)
[2023-02-12 22:26] LABS: Osmolality Serum 286 mOsm/kg (275-295)
[2023-02-12] MEDS: Enoxaparin 40 MG/0.4 ML SYR SUBCUT SCH (22:45)
[2023-02-12 23:55] LABS: Urine Osmo 177 mOsm/kg (150-1150)
[2023-02-13] MEDS: Aztreonam 2 GM in NS 0.9% 100 ml BAG 100 ML IV SCH ×3 (02:16→18:05)
[2023-02-13] MEDS: DOXYcycline 100 MG in NS 0.9% 250 ml 250 ML IVPB SCH ×2 (06:11→20:57)
[2023-02-13 06:33] LABS: ABS Basophils 0.1 10^3/uL (0.0-0.1); ABS Lymphocytes 0.8 10^3/uL (1.0-4.8); ABS Monocytes 0.3 10^3/uL (0.0-1.1); ABS Neutrophils 18.3 10^3/uL (1.5-7.6); Hematocrit 38.8 % (38-53); Hemoglobin 13.3 g/dL (13.2-16.3); Mean Corpuscular Hemoglobin 30.2 pg (27-33); Mean Corpuscular Hgb Conc 34.2 g/dL (31-36); Mean Corpuscular Volume 88.1 fL (80-97); Mean Platelet Volume 7.8 fL (7.5-11.2); Platelet Count 332 10^3/uL (150-450); White Blood Count 19.5 10^3/uL (3.6-10.2)
[2023-02-13 06:45] LABS: Calcium 8.9 mg/dL (8.6-10.3); Creatinine, Serum 0.93 mg/dL (0.67-1.17); Potassium 4.3 mmol/L (3.5-5.0); eGFR CKD-EPI 92.3 (>60)
[2023-02-13] MEDS: Mometasone/Formoter 200/5 MDI INH SCH ×2 (08:02→20:08)
[2023-02-13] MEDS: DULoxetine DR 60 mg CAP PO SCH (08:26)
[2023-02-13] MEDS: Cholecalciferol (VIT D3) 1,000 unit TAB PO SCH (08:26)
[2023-02-13] MEDS: Potassium Chlor 10 meq TAB PO SCH ×2 (08:27→21:04)
[2023-02-13 12:25] LABS: Glucose Confirmatory 474 mg/dL (70-100)
[2023-02-13 17:10] LABS: Glucose Confirmatory 460 mg/dL (70-100)
[2023-02-13] MEDS: Enoxaparin 40 MG/0.4 ML SYR SUBCUT SCH (21:02)
[2023-02-13] MEDS: Insulin GLARGINE 100 un/ml 10 ml VIAL SUBCUT SCH (21:05)
[2023-02-14] MEDS: Aztreonam 2 GM in NS 0.9% 100 ml BAG 100 ML IV SCH ×3 (02:58→18:30)
[2023-02-14 06:11] LABS: Hematocrit 41.9 % (38-53); Hemoglobin 14.3 g/dL (13.2-16.3); Mean Corpuscular Hemoglobin 30.4 pg (27-33); Mean Corpuscular Hgb Conc 34.1 g/dL (31-36); Mean Corpuscular Volume 89.3 fL (80-97); Mean Platelet Volume 8.3 fL (7.5-11.2); Platelet Count 413 10^3/uL (150-450); Red Cell Distribution Width 14.1 % (12-17)
[2023-02-14] MEDS: DOXYcycline 100 MG in NS 0.9% 250 ml 250 ML IVPB SCH ×2 (06:21→19:37)
[2023-02-14 06:33] LABS: Calcium 9.5 mg/dL (8.6-10.3); Creatinine, Serum 0.97 mg/dL (0.67-1.17); Magnesium 1.9 mg/dL (1.9-2.7); Potassium 4.3 mmol/L (3.5-5.0); eGFR CKD-EPI 87.7 (>60)
[2023-02-14] MEDS: Mometasone/Formoter 200/5 MDI INH SCH ×2 (07:36→19:14)
[2023-02-14] MEDS: Cholecalciferol (VIT D3) 1,000 unit TAB PO SCH (08:27)
[2023-02-14] MEDS: DULoxetine DR 60 mg CAP PO SCH (08:27)
[2023-02-14] MEDS: Potassium Chlor 10 meq TAB PO SCH ×2 (08:27→19:55)
[2023-02-14] MEDS: Enoxaparin 40 MG/0.4 ML SYR SUBCUT SCH (19:55)
[2023-02-14] MEDS: Insulin GLARGINE 100 un/ml 10 ml VIAL SUBCUT SCH (19:57)
[2023-02-14 20:31] LABS: Glucose Confirmatory 408 mg/dL (70-100)
[2023-02-14] MEDS ORDERED: Dextrose 50% Syringe 50 ml 25 GM/50 ML SYRINGE IV PUSH PRN (20:48)
[2023-02-15] MEDS: Aztreonam 2 GM in NS 0.9% 100 ml BAG 100 ML IV SCH ×2 (02:17→11:14)
[2023-02-15 05:57] LABS: Hematocrit 40.5 % (38-53); Hemoglobin 13.8 g/dL (13.2-16.3); Mean Corpuscular Hemoglobin 30.5 pg (27-33); Mean Corpuscular Hgb Conc 34.1 g/dL (31-36); Mean Corpuscular Volume 89.4 fL (80-97); Mean Platelet Volume 7.9 fL (7.5-11.2); Platelet Count 430 10^3/uL (150-450); Red Blood Count 4.53 10^6/uL (4.06-5.63); Red Cell Distribution Width 13.9 % (12-17); White Blood Count 24.4 10^3/uL (3.6-10.2)
[2023-02-15] MEDS: DOXYcycline 100 MG in NS 0.9% 250 ml 250 ML IVPB SCH (06:09)
[2023-02-15 06:14] LABS: Blood Urea Nitrogen 30 mg/dL (6-24); CO2 Carbon Dioxide 24 mmol/L (22-32); Chloride 100 mmol/L (101-111); Creatinine, Serum 1.05 mg/dL (0.67-1.17); Glucose 176 mg/dL (70-100); Sodium 136 mmol/L (135-145)
[2023-02-15 06:15] LABS: Calcium 9.1 mg/dL (8.6-10.3); eGFR CKD-EPI 79.8 (>60)
[2023-02-15 06:30] LABS: Anion Gap 12 mmol/L (2-16)
[2023-02-15] MEDS: Cholecalciferol (VIT D3) 1,000 unit TAB PO SCH (08:56)
[2023-02-15] MEDS: DULoxetine DR 60 mg CAP PO SCH (08:56)
[2023-02-15] MEDS: Potassium Chlor 10 meq TAB PO SCH (08:57)
[2023-02-15] MEDS: Mometasone/Formoter 200/5 MDI INH SCH (09:01)
[2023-02-15] MEDS ORDERED: Cefepime 1 GM in Dextrose 1 GM/50 ML BAG IV ONE (13:00)
[2023-02-15 13:57] VITALS: BP 117/78
== END 2023-02-15 17:15 | disposition home or self-care (01) | DRG 193 ==
LOC: EDHOLD 14:49 → ED 14:49 → SUATTDRO 17:55 → MED 19:46 → SUATTDRO 02-13 11:20
PROVIDERS: ADMIT Internal Medicine; ATTEND Internal Medicine

== ENCOUNTER 2023-05-24 19:23 | Inpatient (IN) ==
[2023-05-24 22:05] LABS: PCO2 Arterial 44 mmHg (35-45); PO2 Arterial 69 mmHg (80-100)
[2023-05-24 22:08] LABS: ABS Eosinophils 0.1 10^3/uL (0.0-0.5); ABS Lymphocytes 1.5 10^3/uL (1.0-4.8); ABS Monocytes 0.3 10^3/uL (0.0-1.1); ABS Neutrophils 1.3 10^3/uL (1.5-7.6); Eosinophil % 2.6 %; Hematocrit 34.2 % (38-53); Lymphocyte % 47.1 %; Mean Corpuscular Hgb Conc 34.9 g/dL (31-36); Mean Corpuscular Volume 88.6 fL (80-97); Mean Platelet Volume 7.9 fL (7.5-11.2); Nucleated Red Blood Cells % 0.1 /100 WBC (0.0-0.4); Platelet Count 105 10^3/uL (150-450); Red Blood Count 3.86 10^6/uL (4.06-5.63); Red Cell Distribution Width 17.6 % (12-17); White Blood Count 3.1 10^3/uL (3.6-10.2)
[2023-05-24 22:10] LABS: Activated Partial Thrombo Time 30.6 seconds (26.0-38.0); INR 1.04 (0.83-1.13)
[2023-05-24 22:15] LABS: Albumin 3.3 g/dL (3.2-5.2); Calcium 8.5 mg/dL (8.6-10.3); Potassium 3.3 mmol/L (3.5-5.0); Total Bilirubin 0.8 mg/dL (0.2-1.0)
[2023-05-24 22:20] LABS: Albumin/Globulin Ratio 1.2 (1-3); C Reactive Protein 95.53 mg/L (<8.01); Creatinine, Serum 0.88 mg/dL (0.67-1.17); Globulin 2.8 g/dL (2-4); Total Protein 6.1 g/dL (6.4-8.9); eGFR CKD-EPI 96.6 (>60)
[2023-05-25] MEDS ORDERED: Potassium Chlor 20 meq TAB.ER PO ONE (00:22)
[2023-05-25] MEDS ORDERED: Cefepime 1 GM in Dextrose 1 GM/50 ML BAG IV ONE (01:49)
[2023-05-25] MEDS ORDERED: Dextrose 50% Syringe 50 ml 25 GM/50 ML SYRINGE IV PUSH PRN ×2 (02:57→23:50)
[2023-05-25] MEDS ORDERED: Benzocaine (plain) Lozenge 15 MG MT PRN (03:05)
[2023-05-25] MEDS ORDERED: Albuterol/Ipratropium NEB.SOL (2.5/0.5 MG) 3 ML NEB.SOLN INH SCH (07:00)
[2023-05-25] MEDS: Mometasone/Formoter 200/5 MDI INH SCH ×2 (07:57→20:43)
[2023-05-25] MEDS: Enoxaparin 40 MG/0.4 ML SYR SUBCUT SCH (09:12)
[2023-05-25] MEDS: Morphine ER 15 mg TAB ** extended release PO SCH ×2 (09:13→21:22)
[2023-05-25] MEDS: Potassium Chlor 10 meq TAB PO SCH ×2 (09:13→21:23)
[2023-05-25] MEDS: DULoxetine DR 60 mg CAP PO SCH (09:15)
[2023-05-25] MEDS: Albuterol/Ipratropium NEB.SOL (2.5/0.5 MG) 3 ML NEB.SOLN INH PRN (20:17)
[2023-05-25] MEDS ORDERED: Insulin GLARGINE 100 un/ml 10 ml VIAL SUBCUT SCH (21:00)
[2023-05-25] MEDS: HYDROcodone/Acetamin 10/325 TAB (NF) PO PRN (21:35)
[2023-05-25] MEDS: Benzocaine/Menthol LOZ MT PRN (21:36)
[2023-05-25 22:14] LABS: Glucose Confirmatory 460 mg/dL (70-100)
[2023-05-26] MEDS ORDERED: Alteplase (CATHFLO) 2 MG VIAL IV ONE (06:57)
[2023-05-26 08:05] LABS: C Reactive Protein 87.15 mg/L (<8.01); Creatinine, Serum 0.79 mg/dL (0.67-1.17); Magnesium 1.7 mg/dL (1.9-2.7); Potassium 4.2 mmol/L (3.5-5.0); eGFR CKD-EPI 99.8 (>60)
[2023-05-26] MEDS ORDERED: Magnesium Sulfate IV 3 GM in NS 0.9% 100 ml BAG 100 ML IVPB ONE (08:19)
[2023-05-26] MEDS: Mometasone/Formoter 200/5 MDI INH SCH ×2 (08:47→19:35)
[2023-05-26 09:01] LABS: RBC Morphology Normal (Normal)
[2023-05-26 09:02] LABS: ABS Lymphocytes 1.4 10^3/uL (1.0-4.8); ABS Monocytes 0.6 10^3/uL (0.0-1.1); ABS Neutrophils 2.7 10^3/uL (1.5-7.6); ABS Nucleated RBC 0.01 10^3/ul; Eosinophil % 0.1 %; Hematocrit 33.5 % (38-53); Hemoglobin 11.8 g/dL (13.2-16.3); Lymphocyte % 30.2 %; Mean Corpuscular Hemoglobin 30.9 pg (27-33); Mean Corpuscular Hgb Conc 35.1 g/dL (31-36); Mean Platelet Volume 8.3 fL (7.5-11.2); Nucleated Red Blood Cells % 0.1 /100 WBC (0.0-0.4); Platelet Count 83 10^3/uL (150-450); Red Blood Count 3.81 10^6/uL (4.06-5.63); Red Cell Distribution Width 17.4 % (12-17); White Blood Count 4.8 10^3/uL (3.6-10.2)
[2023-05-26] MEDS: DULoxetine DR 60 mg CAP PO SCH (10:50)
[2023-05-26] MEDS: Morphine ER 15 mg TAB ** extended release PO SCH ×2 (10:51→22:34)
[2023-05-26] MEDS: Potassium Chlor 10 meq TAB PO SCH ×2 (10:53→22:34)
[2023-05-26] MEDS: Enoxaparin 40 MG/0.4 ML SYR SUBCUT SCH (10:54)
[2023-05-26] MEDS: HYDROcodone/Acetamin 10/325 TAB (NF) PO PRN ×2 (12:35→22:40)
[2023-05-26] MEDS: Benzocaine/Menthol LOZ MT PRN ×2 (17:30→22:40)
[2023-05-26 17:54] LABS: Glucose Confirmatory 404 mg/dL (70-100)
[2023-05-26] MEDS: Albuterol/Ipratropium NEB.SOL (2.5/0.5 MG) 3 ML NEB.SOLN INH PRN (19:36)
[2023-05-26 22:08] LABS: Glucose Confirmatory 435 mg/dL (70-100)
[2023-05-26] MEDS ORDERED: Dextrose 50% Syringe 50 ml 25 GM/50 ML SYRINGE IV PUSH PRN (22:19)
[2023-05-26] MEDS: Insulin GLARGINE 100 un/ml 10 ml VIAL SUBCUT SCH (22:34)
[2023-05-27] MEDS: Mometasone/Formoter 200/5 MDI INH SCH ×2 (07:30→19:41)
[2023-05-27] MEDS: DULoxetine DR 60 mg CAP PO SCH (09:12)
[2023-05-27] MEDS: Potassium Chlor 10 meq TAB PO SCH ×2 (09:14→21:05)
[2023-05-27] MEDS: Morphine ER 15 mg TAB ** extended release PO SCH ×2 (09:15→21:05)
[2023-05-27] MEDS: Enoxaparin 40 MG/0.4 ML SYR SUBCUT SCH (09:18)
[2023-05-27] MEDS: HYDROcodone/Acetamin 10/325 TAB (NF) PO PRN ×3 (12:03→21:50)
[2023-05-27] MEDS: Benzocaine/Menthol LOZ MT PRN (12:04)
[2023-05-27] MEDS: Albuterol/Ipratropium NEB.SOL (2.5/0.5 MG) 3 ML NEB.SOLN INH PRN (19:40)
[2023-05-27] MEDS: Insulin GLARGINE 100 un/ml 10 ml VIAL SUBCUT SCH (21:08)
[2023-05-28 05:48] LABS: Hematocrit 31.4 % (38-53); Hemoglobin 11.3 g/dL (13.2-16.3); Mean Corpuscular Hemoglobin 31.3 pg (27-33); Mean Corpuscular Volume 87.1 fL (80-97); Mean Platelet Volume 8.4 fL (7.5-11.2); Platelet Count 77 10^3/uL (150-450); Red Cell Distribution Width 17.3 % (12-17); White Blood Count 5.7 10^3/uL (3.6-10.2)
[2023-05-28 06:34] LABS: Calcium 8.9 mg/dL (8.6-10.3); Creatinine, Serum 0.87 mg/dL (0.67-1.17); Magnesium 1.9 mg/dL (1.9-2.7); Potassium 3.7 mmol/L (3.5-5.0)
[2023-05-28 07:22] LABS: RBC Morphology Normal (Normal)
[2023-05-28 07:25] LABS: ABS Eosinophils 0.1 10^3/ul (0.0-0.5); ABS Lymphocytes 2.7 10^3/ul (1.0-4.8); ABS Monocytes 1.1 10^3/ul (0.0-1.1); ABS Neutrophils 1.8 10^3/ul (1.5-7.6)
[2023-05-28] MEDS: Enoxaparin 40 MG/0.4 ML SYR SUBCUT SCH (08:32)
[2023-05-28] MEDS: DULoxetine DR 60 mg CAP PO SCH (08:32)
[2023-05-28] MEDS: Morphine ER 15 mg TAB ** extended release PO SCH ×2 (08:33→19:56)
[2023-05-28] MEDS: HYDROcodone/Acetamin 10/325 TAB (NF) PO PRN ×3 (08:33→19:56)
[2023-05-28] MEDS: Potassium Chlor 10 meq TAB PO SCH ×2 (08:33→19:56)
[2023-05-28] MEDS: Mometasone/Formoter 200/5 MDI INH SCH ×2 (08:34→19:45)
[2023-05-28] MEDS: Albuterol/Ipratropium NEB.SOL (2.5/0.5 MG) 3 ML NEB.SOLN INH SCH ×2 (11:08→19:46)
[2023-05-28] MEDS ORDERED: Senna TAB 8.6 mg TAB PO PRN (15:57)
[2023-05-28] MEDS ORDERED: Polyethylene Glycol 3350 17 GM PACKET PO PRN (15:57)
[2023-05-28] MEDS ORDERED: Magnesium Hydroxide LIQ 30 ML UDC PO PRN (15:57)
[2023-05-28] MEDS: Insulin GLARGINE 100 un/ml 10 ml VIAL SUBCUT SCH (19:57)
[2023-05-29] MEDS: HYDROcodone/Acetamin 10/325 TAB (NF) PO PRN ×2 (05:43→13:45)
[2023-05-29] MEDS: Albuterol/Ipratropium NEB.SOL (2.5/0.5 MG) 3 ML NEB.SOLN INH SCH ×2 (07:36→19:47)
[2023-05-29] MEDS: Mometasone/Formoter 200/5 MDI INH SCH ×2 (07:37→19:48)
[2023-05-29] MEDS: DULoxetine DR 60 mg CAP PO SCH (08:18)
[2023-05-29] MEDS: Potassium Chlor 10 meq TAB PO SCH (08:19)
[2023-05-29] MEDS: Morphine ER 15 mg TAB ** extended release PO SCH (08:19)
[2023-05-29] MEDS: Enoxaparin 40 MG/0.4 ML SYR SUBCUT SCH (08:20)
[2023-05-29 14:02] VITALS: BP 136/78
== END 2023-05-29 17:35 | disposition home or self-care (01) | DRG 189 ==
LOC: ED 19:23 → EDHOLD 19:23 → SUATTDRO 05-25 02:12 → MED 05-25 13:42 → SUATTDRO 05-26 15:22 → MED 05-28 12:50
PROVIDERS: ADMIT Hospitalist; ATTEND Internal Medicine

== ENCOUNTER 2023-07-04 14:11 | Observation (INO) ==
[2023-07-04 15:01] LABS: ABS Lymphocytes 0.9 10^3/uL (1.0-4.8); ABS Monocytes 0.2 10^3/uL (0.0-1.1); ABS Neutrophils 4.2 10^3/uL (1.5-7.6); Eosinophil % 0.7 %; Hematocrit 33.2 % (38-53); Hemoglobin 11.2 g/dL (13.2-16.3); Lymphocyte % 16.6 %; Mean Corpuscular Hemoglobin 30.6 pg (27-33); Mean Corpuscular Hgb Conc 33.9 g/dL (31-36); Mean Corpuscular Volume 90.3 fL (80-97); Mean Platelet Volume 7.2 fL (7.5-11.2); Nucleated Red Blood Cells % 0.1 %/100WBC (0.0-0.8); Platelet Count 197 10^3/uL (150-450); Red Blood Count 3.68 10^6/uL (4.06-5.63); Red Cell Distribution Width 18.1 % (12-17); White Blood Count 5.3 10^3/uL (3.6-10.2)
[2023-07-04 15:23] LABS: ALT 26 U/L (7-52); AST 43 U/L (13-39); Albumin 3.5 g/dL (3.2-5.2); Albumin/Globulin Ratio 1.1 (1-3); Alkaline Phosphatase 57 U/L (35-149); Anion Gap 10 mmol/L (2-16); Blood Urea Nitrogen 14 mg/dL (6-24); CO2 Carbon Dioxide 26 mmol/L (22-32); Calcium 9.5 mg/dL (8.6-10.3); Chloride 101 mmol/L (101-111); Globulin 3.2 g/dL (2-4); Glucose 148 mg/dL (70-100); Potassium 3.4 mmol/L (3.5-5.0); Sodium 137 mmol/L (135-145); Total Bilirubin 1.5 mg/dL (0.2-1.0); Total Protein 6.7 g/dL (6.4-8.9)
[2023-07-04] MEDS ORDERED: methylPREDNISolone SOD SUCC 125 mg 2 ML VIAL ONE (15:23)
[2023-07-04] MEDS ORDERED: Cefepime 2 GM VIAL ONE (15:24)
[2023-07-04 15:39] LABS: TSH Ultra Thyroid Stim Horm 1.46 mcIU/mL (0.34-5.60)
[2023-07-04 15:40] LABS: Rheumatoid Factor < 10 IU/mL (<15)
[2023-07-04] MEDS ORDERED: Dextrose 50% Syringe 50 ml 25 GM/50 ML SYRINGE IV PUSH PRN (15:53)
[2023-07-04] MEDS ORDERED: Albuterol 2.5mg/3 ml (0.083%) NEB.SOLN INH PRN (16:03)
[2023-07-04] MEDS ORDERED: SEMAGLUTIDE SUBCUT SCH (16:15)
[2023-07-04] MEDS ORDERED: INJECTOR SUBCUT SCH (16:15)
[2023-07-04] MEDS ORDERED: Ondansetron ODT 4 mg TAB 4 MG TAB PO PRN (16:39)
[2023-07-04 17:14] LABS: Urine Appearance Clear; Urine Bilirubin Negative (Negative); Urine Blood Negative (Negative); Urine Color Yellow; Urine Glucose Negative (Negative); Urine Ketones 1+ (Negative); Urine Nitrite Negative (Negative); Urine Protein Negative (Negative); Urine Specific Gravity 1.009 (1.002-1.030); Urine Urobilinogen Negative (Negative)
[2023-07-04] MEDS ORDERED: Magnesium Sulfate 2 gm BAG 2 GM/50 ML BAG IVPB ONE (17:17)
[2023-07-04 17:35] LABS: Erythrocyte Sed Rate 110 mm/Hr (0-19)
[2023-07-04] MEDS: NS 0.9% w/ 40 Meq KCL 1000 ML 1,000 ML IV SCH (18:09)
[2023-07-04] MEDS: HYDROcodone/Acetamin 10/325 TAB (NF) PO PRN (18:21)
[2023-07-04] MEDS ORDERED: Magnesium Sulfate IV 1GM/100ML 1 GM/100 ML BAG IV ONE (19:17)
[2023-07-04] MEDS: Mometasone/Formoter 200/5 MDI INH SCH (19:27)
[2023-07-04] MEDS ORDERED: Morphine ER 15 mg TAB ** extended release PO PRN (20:04)
[2023-07-04] MEDS ORDERED: Insulin GLARGINE 100 un/ml 10 ml VIAL SUBCUT SCH ×2 (21:00)
[2023-07-04] MEDS: Cefepime 2 GM in Dextrose 2 GM/50 ML BAG IV SCH (21:06)
[2023-07-04] MEDS: metroNIDAZOLE IV 500 MG/100ML 500 MG/100 ML BAG IVPB SCH (21:57)
[2023-07-04] MEDS: Morphine ER 15 mg TAB ** extended release PO SCH (22:05)
[2023-07-05] MEDS: HYDROcodone/Acetamin 10/325 TAB (NF) PO PRN ×2 (00:04→09:52)
[2023-07-05] MEDS: metroNIDAZOLE IV 500 MG/100ML 500 MG/100 ML BAG IVPB SCH ×2 (03:57→11:59)
[2023-07-05 05:27] LABS: ABS Lymphocytes 0.4 10^3/uL (1.0-4.8); ABS Monocytes 0.1 10^3/uL (0.0-1.1); ABS Neutrophils 2.4 10^3/uL (1.5-7.6); ABS Nucleated RBC 0.01 10^3/ul; Hematocrit 29.4 % (38-53); Hemoglobin 10.1 g/dL (13.2-16.3); Lymphocyte % 14.1 %; Mean Corpuscular Hemoglobin 31.1 pg (27-33); Mean Corpuscular Hgb Conc 34.4 g/dL (31-36); Mean Corpuscular Volume 90.4 fL (80-97); Nucleated Red Blood Cells % 0.5 %/100WBC (0.0-0.8); Platelet Count 144 10^3/uL (150-450); Red Blood Count 3.25 10^6/uL (4.06-5.63); Red Cell Distribution Width 17.9 % (12-17); White Blood Count 2.9 10^3/uL (3.6-10.2)
[2023-07-05 05:46] LABS: Albumin 3.2 g/dL (3.2-5.2); Albumin/Globulin Ratio 1.1 (1-3); Calcium 8.5 mg/dL (8.6-10.3); Creatinine, Serum 0.89 mg/dL (0.67-1.17); Globulin 2.9 g/dL (2-4); Potassium 4.1 mmol/L (3.5-5.0); Total Bilirubin 0.8 mg/dL (0.2-1.0); Total Protein 6.1 g/dL (6.4-8.9); eGFR CKD-EPI 96.3 (>60)
[2023-07-05] MEDS ORDERED: methylPREDNISolone SOD SUCC 40 mg/ml 1 ml VIAL IV SCH (06:00)
[2023-07-05] MEDS: Mometasone/Formoter 200/5 MDI INH SCH (07:07)
[2023-07-05] MEDS: Cefepime 2 GM in Dextrose 2 GM/50 ML BAG IV SCH (08:10)
[2023-07-05 08:14] LABS: C Reactive Protein 162.8 mg/L (<8.01)
[2023-07-05] MEDS ORDERED: DULoxetine DR 30 mg CAP PO SCH (09:00)
[2023-07-05] MEDS ORDERED: Enoxaparin 40 MG/0.4 ML SYR SUBCUT SCH (09:00)
[2023-07-05 09:04] LABS: C Reactive Protein 182.21 mg/L (<8.01)
[2023-07-05] MEDS: Morphine ER 15 mg TAB ** extended release PO SCH (09:44)
[2023-07-05] MEDS: NS 0.9% w/ 40 Meq KCL 1000 ML 1,000 ML IV SCH (11:51)
[2023-07-05 14:27] VITALS: BP 129/62
== END 2023-07-05 18:23 | disposition home or self-care (01) ==
LOC: CHOA 14:11 → MEDTELE 14:11
PROVIDERS: ADMIT Internal Medicine Hematology; ATTEND Internal Medicine

== ENCOUNTER 2023-10-01 03:01 | Inpatient (IN) ==
[2023-10-01 03:31] LABS: Venous Bicarbonate HCO3 30.3 mmol/L (24-28)
[2023-10-01 03:38] LABS: ABS Eosinophils 0.1 10^3/uL (0.0-0.5); ABS Lymphocytes 0.7 10^3/uL (1.0-4.8); ABS Monocytes 0.3 10^3/uL (0.0-1.1); ABS Neutrophils 10.6 10^3/uL (1.5-7.6); ABS Nucleated RBC 0.03 10^3/ul; Eosinophil % 0.6 %; Hematocrit 39.7 % (38-53); Hemoglobin 13.4 g/dL (13.2-16.3); Lymphocyte % 5.6 %; Mean Corpuscular Hemoglobin 31.2 pg (27-33); Mean Corpuscular Hgb Conc 33.9 g/dL (31-36); Mean Corpuscular Volume 92.1 fL (80-97); Mean Platelet Volume 7.3 fL (7.5-11.2); Nucleated Red Blood Cells % 0.2 %/100WBC (0.0-0.8); Platelet Count 169 10^3/uL (150-450); Red Blood Count 4.31 10^6/uL (4.06-5.63); Red Cell Distribution Width 16.1 % (12-17); White Blood Count 11.6 10^3/uL (3.6-10.2)
[2023-10-01 03:52] LABS: Alcohol, S < 13 mg/dL (<13)
[2023-10-01] MEDS: Lactated Ringers SEPSIS* BAG 2,590 ML IV ONE (03:55)
[2023-10-01 03:57] LABS: ALT 49 U/L (7-52); Albumin 3.6 g/dL (3.2-5.2); Albumin/Globulin Ratio 1.2 (1-3); Alkaline Phosphatase 63 U/L (35-149); Anion Gap 9 mmol/L (2-16); Blood Urea Nitrogen 19 mg/dL (6-24); CO2 Carbon Dioxide 29 mmol/L (22-32); Calcium 8.2 mg/dL (8.6-10.3); Chloride 95 mmol/L (101-111); Creatinine, Serum 1.01 mg/dL (0.67-1.17); Globulin 2.9 g/dL (2-4); Glucose 193 mg/dL (70-100); Sodium 133 mmol/L (135-145); Total Protein 6.5 g/dL (6.4-8.9); eGFR CKD-EPI 83.6 (>60)
[2023-10-01 03:59] LABS: High Sens Troponin Baseline 23 pg/mL (<20)
[2023-10-01 04:08] LABS: TSH Ultra Thyroid Stim Horm 2.09 mcIU/mL (0.34-5.60)
[2023-10-01] MEDS: Morphine 4 MG/ML VIAL (1 ml) IV ONE (05:06)
[2023-10-01] MEDS: Droperidol 5 MG/2 ML 2 ML VIAL IV ONE (05:20)
[2023-10-01 06:07] LABS: Urine Appearance Clear; Urine Bilirubin Negative (Negative); Urine Blood Negative (Negative); Urine Color Light-Yellow; Urine Glucose Negative (Negative); Urine Ketones Negative (Negative); Urine Nitrite Negative (Negative); Urine Protein Negative (Negative); Urine Specific Gravity 1.009 (1.002-1.030); Urine Urobilinogen Negative (Negative); Urine pH 5.5 (5.0-8.0)
[2023-10-01 06:16] LABS: Magnesium 1.2 mg/dL (1.9-2.7); Potassium Redraw 3.1 mmol/L (3.5-5.0)
[2023-10-01 06:17] LABS: Urine Benzodiazepine Screen None Detected (None Detect); Urine Cannabinoids Screen None Detected (None Detect); Urine Opiates Screen Presumptive Positive (None Detect)
[2023-10-01 06:24] LABS: High Sensitivity Troponin 1 Hr 35 pg/mL (<20)
[2023-10-01] MEDS: Lactated Ringers 1000 ml BAG 1,000 ML IV ONE (06:34)
[2023-10-01] MEDS: Morphine ER 15 mg TAB ** extended release PO ONE (07:44)
[2023-10-01 07:45] LABS: PCO2 Arterial 39 mmHg (35-45); PO2 Arterial 63 mmHg (80-100)
[2023-10-01] MEDS: Magnesium Sulf 4 GM/100 ML IV 4,000 MG/100 ML BAG IVPB ONE (07:49)
[2023-10-01] MEDS ORDERED: HYDROmorphone 1 MG/1 ML SYRINGE IV SLOW PU PRN (08:31)
[2023-10-01] MEDS: Haloperidol 5 mg/ml SDV IV/IM 5 MG/ML AMP ONE (08:42)
[2023-10-01] MEDS: Norepinephrine 4 MG/250mL D5W 4,000 MCG/250 ML BAG IV SCH (09:20)
[2023-10-01] MEDS ORDERED: Etomidate 40 mg/20 ml (2 MG/ML) 20 ml VIAL (40 mg) ONE (09:40)
[2023-10-01] MEDS ORDERED: Midazolam 10 mg/10 ml VIAL 1 mg/ml 10 ml VIAL (10 mg) ONE (09:40)
[2023-10-01] MEDS ORDERED: Rocuronium 50 mg VIAL 10 mg/ml 5 ml VIAL (50 mg) ONE (09:40)
[2023-10-01 09:52] LABS: Osmolality Serum 285 mOsm/kg (275-295)
[2023-10-01 09:52] LABS: Urine Osmo 375 mOsm/kg (150-1150)
[2023-10-01] MEDS: Propofol 10 mg/ml 100 ML BTL 1,000 MG/100 ML BTL IV SCH (09:55)
[2023-10-01] MEDS ORDERED: fentaNYL INFUSION 50 mcg/mL VL 2,500 MCG/50 ML VIAL IV SCH (10:00)
[2023-10-01] MEDS ORDERED: Propofol 10 mg/ml 100 ML BTL 1,000 MG/100 ML BTL IV SCH (10:00)
[2023-10-01] MEDS: fentaNYL INFUSION 50 mcg/mL VL 2,500 MCG/50 ML VIAL IV SCH ×2 (10:30→11:30)
[2023-10-01] MEDS: Dexmedetomidine 1,000 MCG in NS 0.9% 250 ml 240 ML IV SCH (11:30)
[2023-10-01] MEDS: Propofol 10 mg/ml 100 ML BTL 1,000 MG/100 ML BTL ONE (11:31)
[2023-10-01] MEDS: Norepinephrine 4 MG/250mL D5W 4,000 MCG/250 ML BAG IV ONE (11:31)
[2023-10-01] MEDS: Phenylephrine 40 mcg/mL 10mL (400mcg) SYRINGE ONE ×2 (11:31→22:52)
[2023-10-01] MEDS: Succinylcholine 200 mg VIAL 20 mg/ml 10 ml VIAL (200 mg) ONE (11:43)
[2023-10-01] MEDS: Rocuronium 50 mg VIAL 10 mg/ml 5 ml VIAL (50 mg) ONE ×2 (11:43)
[2023-10-01 11:44] LABS: PCO2 Arterial 55 mmHg (35-45); PO2 Arterial 95 mmHg (80-100)
[2023-10-01] MEDS: Potassium EFFERVES 25 meq TAB PO ONE (11:44)
[2023-10-01] MEDS: KCL 20 MEQ/100 ML IVPREMIX 20 MEQ/100 ML BAG IV SCH (12:23)
[2023-10-01] MEDS: fentaNYL 100 mcg/2 ml 50 MCG/ML VIAL IV SLOW PU PRN (12:40)
[2023-10-01] MEDS: Midazolam 2 mg/2 ml VIAL 1 mg/ml 2 ml VIAL (2 mg) IV SLOW PU PRN (13:04)
[2023-10-01] MEDS: fentaNYL 100 mcg/2 ml 50 MCG/ML VIAL ONE (13:05)
[2023-10-01] MEDS: Vancomycin 1,500 MG in NS 0.9% 250 ml 250 ML IVPB ONE (13:05)
[2023-10-01] MEDS: Enoxaparin 40 MG/0.4 ML SYR SUBCUT SCH (13:10)
[2023-10-01] MEDS: Cefepime 2 GM in Dextrose 2 GM/50 ML BAG IV SCH (13:17)
[2023-10-01] MEDS: Chlorhexidine MOUTHWASH 0.12% 15 ML UDC SWISH SPIT SCH (13:17)
[2023-10-01] MEDS: Midazolam PREMIXBAG 1 MG/ML NS 100 ML IV SCH (14:26)
[2023-10-01] MEDS: Rocuronium 50 mg VIAL 10 mg/ml 5 ml VIAL (50 mg) IV ONE (15:27)
[2023-10-01] MEDS: Cisatracurium 100 MG in NS 0.9% 250 ml 200 ML IV SCH (15:54)
[2023-10-01 17:39] LABS: Resp Rate 24
[2023-10-01 17:49] LABS: PCO2 Arterial 68 mmHg (35-45); PO2 Arterial 78 mmHg (80-100)
[2023-10-01] MEDS ORDERED: Vancomycin per Pharmacy 1 EA NOTE FOLLOW UP PRN (18:37)
[2023-10-01] MEDS ORDERED: Dextrose 50% Syringe 50 ml 25 GM/50 ML SYRINGE IV PUSH PRN (18:51)
[2023-10-01] MEDS: Albuterol/Ipratropium NEB.SOL (2.5/0.5 MG) 3 ML NEB.SOLN INH SCH (20:32)
[2023-10-01] MEDS: Famotidine IV 10 MG/ML 2 ml VIAL (20 mg) IV SLOW PU SCH (20:50)
[2023-10-01 20:51] LABS: Creatinine, Serum 1.13 mg/dL (0.67-1.17)
[2023-10-01 20:52] LABS: Calcium 7.6 mg/dL (8.6-10.3)
[2023-10-01 20:54] LABS: PCO2 Arterial 59 mmHg (35-45); PO2 Arterial 73 mmHg (80-100)
[2023-10-01 20:59] LABS: High Sensitivity Troponin 1 Hr 46 pg/mL (<20)
[2023-10-01] MEDS ORDERED: Insulin GLARGINE 100 un/ml 10 ml VIAL SUBCUT SCH (21:00)
[2023-10-01 21:26] LABS: Magnesium 1.7 mg/dL (1.9-2.7)
[2023-10-01] MEDS: Magnesium Sulfate 2 gm BAG 2 GM/50 ML BAG IVPB ONE (22:55)
[2023-10-02] MEDS: Vancomycin 750 MG in NS 0.9% 250 ML IVPB SCH (00:34)
[2023-10-02] MEDS: Hydrocortisone INJ 100 MG/2ML 2 ML VIAL IV ONE (02:32)
[2023-10-02 04:21] LABS: Hematocrit 37.4 % (38-53); Hemoglobin 12.6 g/dL (13.2-16.3); Mean Corpuscular Hemoglobin 31.2 pg (27-33); Mean Corpuscular Hgb Conc 33.8 g/dL (31-36); Mean Corpuscular Volume 92.5 fL (80-97); Mean Platelet Volume 8.1 fL (7.5-11.2); Platelet Count 149 10^3/uL (150-450); Red Blood Count 4.05 10^6/uL (4.06-5.63); Red Cell Distribution Width 16.2 % (12-17); White Blood Count 17.9 10^3/uL (3.6-10.2)
[2023-10-02 04:36] LABS: Calcium 7.6 mg/dL (8.6-10.3); Creatinine, Serum 1.42 mg/dL (0.67-1.17); Magnesium 2.3 mg/dL (1.9-2.7); Potassium 4.9 mmol/L (3.5-5.0); eGFR CKD-EPI 55.5 (>60)
[2023-10-02 04:58] LABS: ABS Eosinophils 0.1 10^3/uL (0.0-0.5); ABS Lymphocytes 0.2 10^3/uL (1.0-4.8); ABS Monocytes 0.3 10^3/uL (0.0-1.1); ABS Neutrophils 17.3 10^3/uL (1.5-7.6); ABS Nucleated RBC 0.01 10^3/ul; Eosinophil % 0.4 %; Lymphocyte % 1.3 %; Nucleated Red Blood Cells % 0.1 %/100WBC (0.0-0.8)
[2023-10-02] MEDS: Hydrocortisone INJ 100 MG/2ML 2 ML VIAL IV SCH (09:17)
[2023-10-02] MEDS: Bumetanide IV 0.25 MG/ML 4 ml VIAL (1 mg) IV SLOW PU ONE (12:40)
[2023-10-02 18:54] VITALS: BP 105/58
[2023-10-02 20:29] LABS: PCO2 Arterial 67 mmHg (35-45); PO2 Arterial 98 mmHg (80-100)
[2023-10-03 00:01] LABS: PO2 Arterial 109 mmHg (80-100)
[2023-10-03 00:07] LABS: PCO2 Arterial 79 mmHg (35-45)
[2023-10-03] MEDS: Lactated Ringers 1000 ml BAG 1,000 ML IV SCH (00:15)
[2023-10-03 05:28] LABS: PCO2 Arterial 57 mmHg (35-45); PO2 Arterial 120 mmHg (80-100)
[2023-10-03 05:31] LABS: ABS Basophils 0.1 10^3/uL (0.0-0.1); ABS Lymphocytes 0.2 10^3/uL (1.0-4.8); ABS Monocytes 0.4 10^3/uL (0.0-1.1); ABS Neutrophils 13.6 10^3/uL (1.5-7.6); ABS Nucleated RBC 0.01 10^3/ul; Hematocrit 35.3 % (38-53); Hemoglobin 11.9 g/dL (13.2-16.3); Lymphocyte % 1.2 %; Mean Corpuscular Hemoglobin 30.7 pg (27-33); Mean Corpuscular Hgb Conc 33.6 g/dL (31-36); Mean Corpuscular Volume 91.4 fL (80-97); Mean Platelet Volume 7.8 fL (7.5-11.2); Platelet Count 122 10^3/uL (150-450); Red Blood Count 3.87 10^6/uL (4.06-5.63); Red Cell Distribution Width 16.4 % (12-17); White Blood Count 14.2 10^3/uL (3.6-10.2)
[2023-10-03 05:50] LABS: Albumin 2.5 g/dL (3.2-5.2); Calcium 6.9 mg/dL (8.6-10.3); Creatinine, Serum 2.95 mg/dL (0.67-1.17); Globulin 2.6 g/dL (2-4); Magnesium 2.4 mg/dL (1.9-2.7); Potassium 5.3 mmol/L (3.5-5.0); Total Bilirubin 1.5 mg/dL (0.2-1.0); Total Protein 5.1 g/dL (6.4-8.9); eGFR CKD-EPI 23.1 (>60)
[2023-10-03 12:25] LABS: Resp Rate 26
[2023-10-03 12:29] LABS: PCO2 Arterial 49 mmHg (35-45); PO2 Arterial 81 mmHg (80-100)
[2023-10-03] MEDS: Enoxaparin 30 MG/0.3 ML SYR SUBCUT SCH (12:33)
[2023-10-03 12:52] LABS: Creatinine, Serum 3.24 mg/dL (0.67-1.17); eGFR CKD-EPI 20.6 (>60)
[2023-10-03 13:32] LABS: Vancomycin Trough 27.2 mcg/mL
[2023-10-03] MEDS: Vancomycin Trough Check NOTE FOLLOW UP ONE (14:10)
[2023-10-03] MEDS ORDERED: Albuterol 2.5mg/3 ml (0.083%) NEB.SOLN INH PRN (14:14)
[2023-10-03] MEDS ORDERED: Dextran 70/Hypromellose Tears Eye Drops 15 ml BTL (for Artificials Tears) BOTH EYES PRN (14:16)
[2023-10-03] MEDS ORDERED: Artificial Tear OPHTH.OINT 3.5 GM BOTH EYES PRN (14:27)
[2023-10-03] MEDS: Bumetanide IV 0.25 MG/ML 4 ml VIAL (1 mg) IV SLOW PU SCH (15:02)
[2023-10-03] MEDS: DULoxetine DR 60 mg CAP PO SCH (15:02)
[2023-10-03] MEDS: Cisatracurium 100 MG in NS 0.9% 250 ml 200 ML IV SCH (15:49)
[2023-10-03 16:03] LABS: Calcium 6.6 mg/dL (8.6-10.3); Creatinine, Serum 3.33 mg/dL (0.67-1.17); Potassium 4.9 mmol/L (3.5-5.0)
[2023-10-03] MEDS: Cefepime 1 GM in Dextrose 1 GM/50 ML BAG IV SCH (17:07)
[2023-10-03] MEDS: CALCIUM GLUCONATE 1GM/50ML NS 1 GM/50 ML BAG IV ONE (19:07)
[2023-10-03] MEDS ORDERED: Bumetanide IV 0.25 MG/ML 4 ml VIAL (1 mg) IV SLOW PU SCH (21:00)
[2023-10-04 00:21] LABS: Resp Rate 29
[2023-10-04 00:22] LABS: PCO2 Arterial 56 mmHg (35-45); PO2 Arterial 107 mmHg (80-100)
[2023-10-04] MEDS: Sodium Bicarbonate 8.4% SYR 50 ml SYRINGE IV ONE (00:51)
[2023-10-04] MEDS: Sodium Bicarbonate 8.4% SYR 50 ml SYRINGE ONE (00:56)
[2023-10-04] MEDS: Vancomycin Random Level NOTE FOLLOW UP ONE (05:23)
[2023-10-04 05:35] LABS: Resp Rate 26
[2023-10-04 05:40] LABS: PCO2 Arterial 53 mmHg (35-45); PO2 Arterial 99 mmHg (80-100)
[2023-10-04 05:41] LABS: Hematocrit 33.9 % (38-53); Hemoglobin 11.4 g/dL (13.2-16.3); Mean Corpuscular Hemoglobin 30.8 pg (27-33); Mean Corpuscular Hgb Conc 33.6 g/dL (31-36); Mean Corpuscular Volume 91.8 fL (80-97); Mean Platelet Volume 7.9 fL (7.5-11.2); Platelet Count 101 10^3/uL (150-450); Red Cell Distribution Width 16.2 % (12-17)
[2023-10-04 06:04] LABS: Albumin 2.4 g/dL (3.2-5.2); Albumin/Globulin Ratio 0.9 (1-3); Calcium 6.8 mg/dL (8.6-10.3); Creatinine, Serum 4.01 mg/dL (0.67-1.17); Globulin 2.6 g/dL (2-4); Phosphorus 10.8 mg/dL (2.5-5.0); Total Bilirubin 0.9 mg/dL (0.2-1.0)
[2023-10-04] MEDS ORDERED: Calcium Gluconate 2 GM in NS 0.9% 100 ml BAG 100 ML IVPB ONE (06:07)
[2023-10-04] MEDS: CALCIUM GLUCONATE 1GM/50ML NS BAG IV SCH (06:17)
[2023-10-04 06:19] LABS: Vancomycin Random 24.1 mcg/mL
[2023-10-04] MEDS: DULoxetine DR 60 mg CAP NG TUBE SCH (07:50)
[2023-10-04] MEDS: Famotidine IV 10 MG/ML 2 ml VIAL (20 mg) IV SLOW PU SCH (07:51)
[2023-10-04] MEDS: Senna TAB 8.6 mg TAB PO SCH (12:44)
[2023-10-04 13:45] LABS: Calcium 7.1 mg/dL (8.6-10.3); Creatinine, Serum 4.26 mg/dL (0.67-1.17); Potassium 4.9 mmol/L (3.5-5.0); eGFR CKD-EPI 14.9 (>60)
[2023-10-04 13:47] LABS: Calcium (PTH Intact) 6.9 mg/dL (8.6-10.3)
[2023-10-04] MEDS: Albuterol/Ipratropium NEB.SOL (2.5/0.5 MG) 3 ML NEB.SOLN INH SCH (14:08)
[2023-10-04] MEDS: Calcium Gluconate 2 GM in NS 0.9% 100 ml BAG 100 ML IVPB ONE (14:53)
[2023-10-04] MEDS: HYDROmorphone 0.5 MG/0.5 ML SYRINGE IV ONE (15:29)
[2023-10-04] MEDS ORDERED: Midazolam PREMIXBAG 1 MG/ML NS 100 ML IV SCH (15:40)
[2023-10-04] MEDS: Atropine 1% (ORAL/SL) 15 ML BTL SL PRN (15:45)
[2023-10-04] MEDS ORDERED: fentaNYL INFUSION 50 mcg/mL VL 2,500 MCG/50 ML VIAL IV SCH (16:00)
[2023-10-04] MEDS ORDERED: Polyethylene Glycol 3350 17 GM PACKET PO SCH (21:00)
[2023-10-05] MEDS ORDERED: Vancomycin Random Level NOTE FOLLOW UP ONE (06:00)
[2023-10-05 21:34] LABS: Fungitell Qualitative Result Positive (Negative); Fungitell Quantitative Value 209 pg/mL (<60 pg/mL)
== END 2023-10-04 16:35 | disposition expired | DRG 871 ==
LOC: ED 03:01 → EDHOLD 07:21 → ICU 08:24
PROVIDERS: ADMIT Student in an Organized Health Care Education/Training Program; ATTEND Student in an Organized Health Care Education/Training Program